=== PATIENT | male | born 1940 | race Caucasian/White ===

== ENCOUNTER 2016-10-29 07:57 | Emergency (ER) | payer OTHER ==
[~2016-10-29] VITALS: Ht 165.1 cm; Wt 55.0 kg
[~2016-10-29 07:57] MED LIST: ADVIN25/60 INH; ALBUAER19 INH; AMLO-110 PO; CRG125 PO; FERR-24 PO; ISOS30TA35 PO; LORA-741 PO; LSN40 PO; LSX40 PO; LVQ500 PO; MTR500 PO; OXGN; PLV75 PO; POTA20TA16 PO; SALI0.657 NAE
[2016-10-29 08:02] VITALS: Ht 165.1 cm; Wt 55.0 kg
--- NOTE | 2016-10-29 08:17 | EMERGENCY ROOM VISIT NOTE ---
History Report prepared by Nevin: Oni Garrison Under the Supervision of: Dr. Iglesia Dickson M.D. First contact with patient: 08:12 Chief Complaint: UNABLE TO VOID Stated Complaint: UNABLE TO URINATE Nursing Triage Summary: PT PRESENTS TO ROOM B07 WITH COMPLAINT OF BEING UNABLE TO URINATE SINCE YESTERDAY. PT WAS INCONTINENT OF SMALL AMOUNT OF URINE EN ROUTE TO HOSPITAL. History of Present Illness The patient is a 76 year old male who presents to the Emergency Room with complaints of a persistent inability to urinate that started yesterday. He says he felt like he had to void but he could not. The patient's urologist is Dr. Ellis and his next appointment is in a few days. Dr. Ellis prescribed the patient a new "blue pill" but he does not know what the name of the pill is. The patient denies any pain at all, including abdominal pain, pelvic pain, pain with urination, new chest pain, or back pain. He also denies fevers, chills, sweating, new shortness of breath, or numbness or weakness to his legs. He was catheterized here prior to examination and the patient now says that he feels better. He has been catheterized before. The patient has a history of prostate problems. He has COPD. The patient notes that he is feeling depressed, but says he is not going to hurt himself. Source of History: patient, family Onset: Yesterday Position: other (bladder - inability to urinate) Timing: other (persistent) Associated Symptoms: + urinary symptoms (felt like he had to void), No SOB, No abdominal pain, No back pain, No chest pain, No chills, No diaphoresis, No fevers, No numbness (to legs), No weakness (in legs) Note: Associated symptoms: Denies pelvic pain. Review of Systems See HPI for pertinent positives & negatives. A total of 10 systems reviewed and were otherwise negative. 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 Nurse's notes were reviewed and I agree with. Family History Heart disease Hypertension Lung disease Social History Smoking Status: Current Every Day Smoker Alcohol Use: none Drug Use: none Marital Status: single Housing Status: unknown Occupation Status: retired Current/Historical Medications Scheduled Amlodipine (Norvasc), 5 MG PO QAM Atorvastatin (Lipitor), 80 MG PO HS Carvedilol (Carvedilol), 12.5 MG PO BID Clopidogrel Bisulfate (Clopidogrel), 75 MG PO QAM Coenzyme Q10 (Ubidecarenone) (Co Q10), 2 CAP PO QAM Docusate Sodium (Colace), 1 CAP PO QAM Ferrous Sulfate (Fe Tabs), 325 MG PO BIDM Finasteride (Proscar), 5 MG PO QAM Fluticasone Prop/Salmeterol (Advair Diskus 250/50 60 Dose), 1 PUFF INH Q12H Furosemide (Furosemide), 40 MG PO QAM Gabapentin (Gabapentin), 100 MG PO TID Isosorbide Mononitrate Ext Rel (Imdur Ext Rel), 1 TAB PO QAM Levofloxacin (Levofloxacin), 500 MG PO DAILY@11 Lisinopril (Lisinopril), 40 MG PO QAM Magnesium Oxide (Mag-Ox), 400 MG PO QAM Metronidazole (Metronidazole), 500 MG PO BID Omeprazole (Prilosec), 40 MG PO BID Potassium Ext Rel (Klor-Con), 40 MEQ PO QAM Tamsulosin HCl (Tamsulosin HCl), 2 CAP PO QAM Tiotropium [place] (Spiriva Handihaler), 1 CAP INH DAILY Scheduled PRN Acetaminophen (Tylenol), 650 MG PO Q4H PRN for Pain or Fever Albuterol Inhaler (Ventolin Inhaler), 2 PUFFS INH QID PRN for SOB/Wheezing Fluticasone Propionate (Nasal) (Flonase Allergy Relief), 2 SPRAYS DARREN DAILY PRN for PRN Ipratropium-Albuterol (Duoneb), 1 TREATMENT INH Q4H PRN for SOB/Wheezing Lorazepam (Ativan), 0.5 MG PO TID PRN for Anxiety Nitroglycerin (Nitrostat), 0.4 MG SL UD PRN for Chest Pain Oxygen (Oxygen), 2 LITERS NA HS PRN for PRN Prednisone (Prednisone), 5 MG PO UD PRN for EMERGENCY KIT Saline ([place]), 1 SPRY DARREN Q8 PRN for PRN Allergies Coded Allergies: No Known Allergies (Verified , 02/10/16) Physical Exam Vital Signs Date Time Temp Pulse Resp B/P Pulse Ox O2 Delivery O2 Flow Rate FiO2 10/29/16 15:04 36.5 66 18 109/56 94 10/29/16 15:03 66 18 109/56 94 Room Air 10/29/16 14:10 67 18 105/56 97 Room Air 10/29/16 12:20 62 18 92/53 95 Room Air 10/29/16 11:06 66 18 110/54 98 Room Air 10/29/16 09:31 66 18 132/71 98 Nasal Cannula 2.0 10/29/16 08:36 95 Nasal Cannula 2.0 10/29/16 08:02 36.5 73 18 137/67 94 Room Air Physical Exam General: Well developed well nourished non-ill appearing older male in no acute distress, breathing comfortably on room air. Normal speech HEENT: Normal cephalic atraumatic. Pupils are equal round and reactive to light. Extraocular movements are intact. Oropharynx is pink with moist mucous membranes. No swelling of the mouth lips or tongue. Neck: Supple with a midline trachea. No meningeal signs or stiffness, no JVD or bruits. No Stridor. Chest: Clear to auscultation bilaterally. No wheezes or rhonchi. No increased work of breathing. Heart: regular rate and rhythm. Abdomen: Soft non-tender abdomen, reproducible ventral hernia centrally. Mass on left inguinal groin which is not tender, red, or warm, and states is unchanged. Nondistended without rebound guarding or rigidity. Extremities: No cyanosis clubbing or edema. No calf tenderness . Amputation of left lower extremity Spine/Back. Non tender to palpation. No CVA tenderness Skin: Good turgor without rashes. Neurologic exam: Cranial nerves two through 12 are intact. Motor and sensation are intact and symmetrical throughout. Medical Decision & Procedures Laboratory Results 10/29/16 08:50 Red Blood Count 3.86, Mean Corpuscular Volume 93.5, Mean Corpuscular Hemoglobin 30.6, Mean Corpuscular Hemoglobin Concent 32.7, Mean Platelet Volume 9.8, Neutrophils (%) (Auto) 69.3, Lymphocytes (%) (Auto) 15.7, Monocytes (%) (Auto) 10.8, Eosinophils (%) (Auto) 3.5, Basophils (%) (Auto) 0.5, Neutrophils # (Auto ) 5.81, Lymphocytes # (Auto) 1.32, Monocytes # (Auto) 0.91, Eosinophils # (Auto ) 0.29, Basophils # (Auto) 0.04 10/29/16 08:50 Test 10/29/16 08:10 10/29/16 08:50 Urine Color YELLOW Urine Appearance CLEAR (CLEAR) Urine pH 6.5 (4.5-7.5) Urine Specific [place] 1.006 (1.000-1.030) Urine Protein NEG (NEG) Urine Glucose (UA) NEG (NEG) Urine Ketones NEG (NEG) Urine Occult Blood TRACE (NEG) Urine Nitrite NEG (NEG) Urine Bilirubin NEG (NEG) Urine Urobilinogen NEG (NEG) Urine Leukocyte Esterase NEG (NEG) Urine WBC (Auto) 0 /hpf (0-5) Urine RBC (Auto) 0-4 /hpf (0-4) Urine Hyaline Casts (Auto) 1-5 /lpf (0-5) Urine Epithelial Cells (Auto) 0-5 /lpf (0-5) Urine Bacteria (Auto) NEG (NEG) White Blood Count 8.39 K/uL (4.8-10.8) Red Blood Count 3.86 M/uL (4.7-6.1) Hemoglobin 11.8 g/dL (14.0-18.0) Hematocrit 36.1 % (42-52) Mean Corpuscular Volume 93.5 fL (80-100) Mean Corpuscular Hemoglobin 30.6 pg (25-34) Mean Corpuscular Hemoglobin Concent 32.7 g/dl (32-36) Platelet Count 198 K/uL (130-400) Mean Platelet Volume 9.8 fL (7.4-10.4) Neutrophils (%) (Auto) 69.3 % Lymphocytes (%) (Auto) 15.7 % Monocytes (%) (Auto) 10.8 % Eosinophils (%) (Auto) 3.5 % Basophils (%) (Auto) 0.5 % Neutrophils # (Auto) 5.81 K/uL (1.4-6.5) Lymphocytes # (Auto) 1.32 K/uL (1.2-3.4) Monocytes # (Auto) 0.91 K/uL (0.11-0.59) Eosinophils # (Auto) 0.29 K/uL (0-0.5) Basophils # (Auto) 0.04 K/uL (0-0.2) RDW Standard Deviation 51.1 fL (36.4-46.3) RDW Coefficient of Variation 15.0 % (11.5-14.5) Immature Granulocyte % (Auto) 0.2 % Immature Granulocyte # (Auto) 0.02 K/uL (0.00-0.02) Prothrombin Time 11.5 SECONDS (9.0-12.0) Prothromb Time International Ratio 1.1 (0.9-1.1) Activated Partial Thromboplast Time 26.4 SECONDS (21.0-31.0) Partial Thromboplastin Ratio 1.0 Anion Gap 7.0 mmol/L (3-11) Est Creatinine Clear Calc Drug Dose 66.2 ml/min Estimated GFR () 104.0 Estimated GFR (Non- 89.7 BUN/Creatinine Ratio 15.7 (10-20) Calcium Level 8.5 mg/dl (8.5-10.1) Date/Time Source Procedure Growth Status 10/29/16 08:00 Urine,Catheterized Urine Culture - Final NO GROWTH - LESS THAN 1,000 COLONIES/ML Complete Laboratory studies as stated above per my review. Medications Administered Medications (Trade) Dose Ordered Sig/Linda Route Start Time Stop Time Status Last Admin Dose Admin Ciprofloxacin (Cipro Tab) 500 mg NOW STAT PO 10/29/16 14:22 10/29/16 14:23 DC 10/29/16 14:52 500 MG ED Course 0831: Past medical records reviewed. The patient was evaluated in room B7, and a complete history and physical examination were performed. 0901: I reevaluated the patient and he is sleeping with stable vital signs. 1417: Upon reevaluation, the patient is resting comfortably. I discussed the results and treatment plan with him and his family. They verbalized agreement of the treatment plan. The patient was discharged home. 1422: Ordered Cipro Tab 500 mg PO. Medical Decision Differential diagnoses include: urinary retention, UTI, electrolyte or metabolic abnormality. This patient comes in with urinary retention. A Cuellar catheter was placed and urine was obtained. He has no neurologic deficits. He has nothing to suggest infection or cauda equina syndrome. He no electrolyte or metabolic abnormalities. A leg bag was placed to his observed in the ER. I will cover him with antibiotics and have him follow-up with his doctor in the next couple days for catheter removal. He was encouraged to return to ER if he has any problems with the catheter, fever chills, any new problems or concerns. I discussed the care with the patient as well as the son they were happy the plan and he was discharged home. Impression Primary Impression: Urinary retention Scribe Attestation The scribe's documentation has been prepared under my direction and personally reviewed by me in its entirety. I confirm that the note above accurately reflects all work, treatment, procedures, and medical decision making performed by me. Departure Information Dispostion Home / Self-Care Referrals Andrew Hinton MD (PCP) Forms HOME CARE DOCUMENTATION FORM, IMPORTANT VISIT INFORMATION, WORK / SCHOOL INSTRUCTIONS Patient Instructions My [facility] Additional Instructions Rest. Drink lineal fluids. Use Cipro 250 mg twice a day for 5 days Return if: Problems with catheter, fever chills, worsening symptoms, any new problems or concerns Follow-up with your urologist call on Tuesday and get catheter removed either Tuesdayor Tuesday.
[2016-10-29 08:30] LABS: URINE APPEARANCE CLEAR (CLEAR); URINE BILIRUBIN NEG (NEG); URINE COLOR YELLOW; URINE EPITHELIAL CELL AUTO 0-5 /lpf (0-5); URINE NITRITE NEG (NEG); URINE PH 6.5 (4.5-7.5); URINE SPECIFIC GRAVITY 1.006 (1.000-1.030); UROBILINOGEN NEG (NEG); ZZURINE CULT IF INDIC CATH NO
[2016-10-29 08:35] LABS: MANUAL MICROSCOPIC REQUIRED? NO; REVIEW REQ? NO
[2016-10-29 08:36] VITALS: O2SAT 95
[2016-10-29 09:04] LABS: BASO % 0.5 %; BASO ABS # 0.04 K/uL (0-0.2); COMPLETE YES; EOS % 3.5 %; HEMATOCRIT 36.1 % (42-52); IG% 0.2 %; LYMPH % 15.7 %; LYMPH ABS # 1.32 K/uL (1.2-3.4); MEAN CELL VOLUME 93.5 fL (80-100); MEAN CORPUSCULAR HEMOGLOBIN 30.6 pg (25-34); MEAN CORPUSCULAR HGB CONC 32.7 g/dl (32-36); MEAN PLATELET VOLUME 9.8 fL (7.4-10.4); MONO % 10.8 %; NEUT % 69.3 %; PLATELET COUNT 198 K/uL (130-400); RED BLOOD COUNT 3.86 M/uL (4.7-6.1); WHITE BLOOD COUNT 8.39 K/uL (4.8-10.8)
[2016-10-29 09:19] LABS: INR 1.1 (0.9-1.1); PROTHROMBIN TIME (PATIENT) 11.5 SECONDS (9.0-12.0)
[2016-10-29 09:40] LABS: BUN/CREATININE RATIO 15.7 (10-20); CALCIUM 8.5 mg/dl (8.5-10.1); CREATININE 0.75 mg/dl (0.60-1.40)
[2016-10-29] MEDS ORDERED: CIPROFLOXACIN 500 MG TAB PO STA (14:22)
[2016-10-29] MEDS ORDERED: CIPR250T3 PO (14:22)
[2016-10-29 15:04] VITALS: BP 109/56; PULSE 66; TEMP 36.5; O2SAT 94
[2017-06-10] MEDS ORDERED: ATOR-26 PO (06:14)
[2017-06-10] MEDS ORDERED: FRS/40 PO (06:57)
[2017-06-10] MEDS ORDERED: SALI0.6510 NAE (07:03)
[2017-06-10] MEDS ORDERED: METO25TA3 PO (07:04)
[2017-06-10] MEDS ORDERED: PRED-301 PO (09:54)
[2017-06-10] MEDS ORDERED: COEN1CAP28 PO (09:54)
[2017-06-10] MEDS ORDERED: DOCU-94 PO (09:54)
[2017-06-10] MEDS ORDERED: IPRASOL4 NEB (09:54)
[2017-06-10] MEDS ORDERED: FLUT0.15 NAE (09:54)
[2017-06-10] MEDS ORDERED: ACET-1311 PO (16:11)
[2017-06-10] MEDS ORDERED: NRN100 PO (16:49)
[2017-06-10] MEDS ORDERED: OMEP40CA41 PO (16:49)
[2017-06-10] MEDS ORDERED: FINA5TAB4 PO (16:49)
[2017-06-10] MEDS ORDERED: SPRIN/30 INH (16:49)
[2017-06-10] MEDS ORDERED: FLM4 PO (16:49)
[2017-06-17] MEDS ORDERED: NYSS5 PO (11:06)
[2017-06-17] MEDS ORDERED: GFNSR600 PO (11:24)
[2017-06-17] MEDS ORDERED: ULT50X PO (14:40)
[2017-06-17] MEDS ORDERED: PRED20TA2 PO (14:44)
== END 2016-10-29 15:05 | disposition home or self-care (01) ==
LOC: EDBD 07:57 → C.EDB 07:58
DX: R33.9 Retention of urine, unspecified (principal); N40.1 Benign prostatic hyperplasia with lower urinary tract symptoms; J44.9 Chronic obstructive pulmonary disease, unspecified; E78.5 Hyperlipidemia, unspecified; I25.10 Atherosclerotic heart disease of native coronary artery without angina pectoris; I10 Essential (primary) hypertension; Z89.612 Acquired absence of left leg above knee; F17.200 Nicotine dependence, unspecified, uncomplicated; Z82.49 Family history of ischemic heart disease and other diseases of the circulatory system

== ENCOUNTER 2016-10-30 15:11 | Emergency (ER) | payer OTHER ==
[~2016-10-30] VITALS: Ht 165.1 cm; Wt 50.0 kg
[~2016-10-30 15:11] MED LIST changes: +CIPR250T3 PO
[2016-10-30 15:22] VITALS: BP 98/61; PULSE 82; TEMP 36.5; O2SAT 90; Ht 165.1 cm; Wt 50.0 kg
--- NOTE | 2016-10-30 15:45 | EMERGENCY ROOM VISIT NOTE ---
History First contact with patient: 15:28 Chief Complaint: CATHETER REPLACEMENT Stated Complaint: WANTS CATHETER OUT, KEEPS WETTING HIMSELF History of Present Illness The patient is a 76 year old male who presents to the Emergency Room requesting a Cuellar catheter removal. The patient was in our emergency department yesterday for urinary retention, and had a Cuellar catheter placed. The patient reports that it started to leak overnight. He has had to change this close 3 times today because of the leakage, and is requesting that it be completely removed. He has an appointment next Tuesday with Dr. Ellis. He was provided a prescription for ciprofloxacin yesterday that he continues to take. 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 (13) Peripheral vascular disease (14) Pulmonary edema (15) Respiratory failure, [id number] (16) Severe sepsis Surgical Problems: (1) Status post coronary artery stent placement Family History Heart disease Hypertension Lung disease Social History Smoking Status: Current Every Day Smoker Alcohol Use: none Drug Use: none Marital Status: single Housing Status: unknown Occupation Status: retired Current/Historical Medications Scheduled Amlodipine (Norvasc), 5 MG PO QAM Atorvastatin (Lipitor), 80 MG PO HS Carvedilol (Carvedilol), 12.5 MG PO BID Ciprofloxacin (Cipro), 1 TAB PO BID Clopidogrel Bisulfate (Clopidogrel), 75 MG PO QAM Coenzyme Q10 (Ubidecarenone) (Co Q10), 2 CAP PO QAM Docusate Sodium (Colace), 1 CAP PO QAM Ferrous Sulfate (Fe Tabs), 325 MG PO BIDM Finasteride (Proscar), 5 MG PO QAM Fluticasone Prop/Salmeterol (Advair Diskus 250/50 60 Dose), 1 PUFF INH Q12H Furosemide (Furosemide), 40 MG PO QAM Gabapentin (Gabapentin), 100 MG PO TID Isosorbide Mononitrate Ext Rel (Imdur Ext Rel), 1 TAB PO QAM Levofloxacin (Levofloxacin), 500 MG PO DAILY@11 Lisinopril (Lisinopril), 40 MG PO QAM Magnesium Oxide (Mag-Ox), 400 MG PO QAM Metronidazole (Metronidazole), 500 MG PO BID Omeprazole (Prilosec), 40 MG PO BID Potassium Ext Rel (Klor-Con), 40 MEQ PO QAM Tamsulosin HCl (Tamsulosin HCl), 2 CAP PO QAM Tiotropium [place] (Spiriva Handihaler), 1 CAP INH DAILY Scheduled PRN Acetaminophen (Tylenol), 650 MG PO Q4H PRN for Pain or Fever Albuterol Inhaler (Ventolin Inhaler), 2 PUFFS INH QID PRN for SOB/Wheezing Fluticasone Propionate (Nasal) (Flonase Allergy Relief), 2 SPRAYS DARREN DAILY PRN for PRN Ipratropium-Albuterol (Duoneb), 1 TREATMENT INH Q4H PRN for SOB/Wheezing Lorazepam (Ativan), 0.5 MG PO TID PRN for Anxiety Nitroglycerin (Nitrostat), 0.4 MG SL UD PRN for Chest Pain Oxygen (Oxygen), 2 LITERS NA HS PRN for PRN Prednisone (Prednisone), 5 MG PO UD PRN for EMERGENCY KIT Saline ([place]), 1 SPRY DARREN Q8 PRN for PRN Allergies Coded Allergies: No Known Allergies (Verified , 02/10/16) Physical Exam Vital Signs Date Time Temp Pulse Resp B/P Pulse Ox O2 Delivery O2 Flow Rate FiO2 10/30/16 15:22 36.5 82 18 98/61 90 Room Air Physical Exam CONSTITUTIONAL: Healthy and well nourished. Alert and oriented X 3 with flat affect. HEENT: Normocephalic, atraumatic. Pupils equal, round and reactive. No conjunctival injection/pallor or scleral icterus. NECK: Full active range of motion without discomfort. RESPIRATORY: Clear to auscultation bilaterally with no wheezing, crackles, rhonchi or stridor. CARDIOVASCULAR: Regular rate and rhythm with no murmurs, rubs or gallops. GASTROINTESTINAL: Bowel sounds present in all quadrants. Abdomen is soft and nontender to palpation. Negative CVA tenderness. GENITOURINARY: Examination does not show any referral bleeding around the Cuellar catheter tube. MUSCULOSKELETAL: Full range of motion of all joints without discomfort. INTEGUMENTARY: No rash or other significant dermatologic conditions noted. NEUROLOGIC: No focal neurologic deficits noted. Medical Decision & Procedures ED Course Patient history and physical exam were performed. Nurse's notes were reviewed. I explained to the patient that the Cuellar catheter balloon may not be seated against the base of the bladder, causing it to leak. I did offer to try repositioning the catheter, however the patient refused, stating that he just wanted the catheter to be completely gone. I did explain that he could redevelop urinary retention. The patient reports that he would come back to the emergency department if needed. The Cuellar catheter was removed. There was no bloody discharge, and the patient denied any significant discomfort while doing so. He was instructed to continue and finish his previous Cipro antibiotics, and follow-up with Dr. Ellis for further management. Return to the emergency department for any reoccurring urinary retention. The patient was happy to have the Cuellar removed, and denied any discomfort at the time of discharge. Impression Primary Impression: Complication of catheter Departure Information Dispostion Home / Self-Care Referrals Andrew Hinton MD (PCP) Forms HOME CARE DOCUMENTATION FORM, IMPORTANT VISIT INFORMATION Patient Instructions My [facility] Additional Instructions Return to the emergency department for any recurrent urinary retention. Follow-up with Dr. Ellis for further management. Complete all antibiotics as previously prescribed. Problem Qualifiers Primary Impression: Complication of catheter Encounter type: subsequent encounter Qualified Codes: T85.9XXD - Unspecified complication of internal prosthetic device, implant and graft, subsequent encounter
[2017-06-10] MEDS ORDERED: ATOR-26 PO (06:14)
[2017-06-10] MEDS ORDERED: FRS/40 PO (06:57)
[2017-06-10] MEDS ORDERED: SALI0.6510 NAE (07:03)
[2017-06-10] MEDS ORDERED: METO25TA3 PO (07:04)
[2017-06-10] MEDS ORDERED: IPRASOL4 NEB (09:54)
[2017-06-10] MEDS ORDERED: DOCU-94 PO (09:54)
[2017-06-10] MEDS ORDERED: COEN1CAP28 PO (09:54)
[2017-06-10] MEDS ORDERED: PRED-301 PO (09:54)
[2017-06-10] MEDS ORDERED: FLUT0.15 NAE (09:54)
[2017-06-10] MEDS ORDERED: ACET-1311 PO (16:11)
[2017-06-10] MEDS ORDERED: FLM4 PO (16:49)
[2017-06-10] MEDS ORDERED: NRN100 PO (16:49)
[2017-06-10] MEDS ORDERED: OMEP40CA41 PO (16:49)
[2017-06-10] MEDS ORDERED: FINA5TAB4 PO (16:49)
[2017-06-10] MEDS ORDERED: SPRIN/30 INH (16:49)
[2017-06-17] MEDS ORDERED: NYSS5 PO (11:06)
[2017-06-17] MEDS ORDERED: GFNSR600 PO (11:24)
[2017-06-17] MEDS ORDERED: ULT50X PO (14:40)
[2017-06-17] MEDS ORDERED: PRED20TA2 PO (14:44)
== END 2016-10-30 15:42 | disposition home or self-care (01) ==
LOC: C.EDB 15:12 → C.EDD 15:42
DX: T83.038A Leakage of other urinary catheter, initial encounter (principal); Y84.6 Urinary catheterization as the cause of abnormal reaction of the patient, or of later complication, without mention of misadventure at the time of the procedure; D64.9 Anemia, unspecified; N40.0 Benign prostatic hyperplasia without lower urinary tract symptoms; J44.9 Chronic obstructive pulmonary disease, unspecified; I25.10 Atherosclerotic heart disease of native coronary artery without angina pectoris; E78.5 Hyperlipidemia, unspecified; I10 Essential (primary) hypertension; I73.9 Peripheral vascular disease, unspecified; J81.1 Chronic pulmonary edema; J96.90 Respiratory failure, unspecified, unspecified whether with hypoxia or hypercapnia; F17.210 Nicotine dependence, cigarettes, uncomplicated; Z79.899 Other long term (current) drug therapy

== ENCOUNTER 2017-02-05 08:34 | Emergency (ER) | payer OTHER ==
[~2017-02-05] VITALS: Ht 162.6 cm; Wt 46.1 kg
[~2017-02-05 08:34] MED LIST changes: -CIPR250T3 PO
[2017-02-05 08:40] VITALS: TEMP 36.7; Ht 162.6 cm; Wt 46.1 kg
[2017-02-05 09:12] LABS: URINE APPEARANCE CLEAR (CLEAR); URINE BILIRUBIN NEG (NEG); URINE COLOR YELLOW; URINE EPITHELIAL CELL AUTO 0-5 /lpf (0-5); URINE NITRITE NEG (NEG); URINE SPECIFIC GRAVITY 1.009 (1.000-1.030); UROBILINOGEN NEG (NEG); ZZURINE CULT IF INDIC CATH NO
[2017-02-05 09:13] LABS: MANUAL MICROSCOPIC REQUIRED? NO; REVIEW REQ? NO
[2017-02-05] MEDS ORDERED: CIPROFLOXACIN 500 MG TAB PO STA (09:37)
[2017-02-05 10:03] VITALS: BP 94/52; PULSE 66; O2SAT 100
--- NOTE | 2017-02-05 13:30 | EMERGENCY ROOM VISIT NOTE ---
History Report prepared by Nevin: Damion Bardales Under the Supervision of: Dr. Fahad Joiner D.O. First contact with patient: 08:35 Stated Complaint: UNABLE TO VOID History of Present Illness The patient is a 76 year old male who presents to the Emergency Room with complaints of constant inability to void since he woke up at 0630 this morning. The patient feels the urge to go but no urine passes. He was last able to urinate last night before going to sleep. The same thing happened to him several months ago requiring a Cuellar catheter. He was not experiencing any pain or burning with urination yesterday. He has an enlarged prostate and follows up with Dr. Ellis (Urology). He states that he has been eating and drinking okay lately. The patient notes that he has a mass in the left lower abdomen that he occasionally has drained, for which he follows up with Dr. Baldwin. The collection has been present for several months. The patient wears oxygen at night and as needed. Patient denies headache, change in vision, cough, sore throat, rhinorrhea, fevers, chest pain, shortness of breath, nausea, vomiting, and diarrhea. Source of History: patient Onset: prior to waking up at 0630 this morning Position: other (urinary) Quality: other (unable to void) Timing: constant Associated Symptoms: No SOB, No chest pain, No cough, No diarrhea, No fevers , No headache, No melena, No nausea, No sorethroat, No urinary symptoms, No vomiting Review of Systems See HPI for pertinent positives & negatives. A total of 10 systems reviewed and were otherwise negative. 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 (13) Peripheral vascular disease (14) Pulmonary edema (15) Respiratory failure, [id number] (16) Severe sepsis Surgical Problems: (1) Status post coronary artery stent placement Family History Heart disease Hypertension Lung disease Social History Smoking Status: Current Every Day Smoker Alcohol Use: none Drug Use: none Marital Status: single Housing Status: unknown Occupation Status: retired Current/Historical Medications Scheduled Amlodipine (Norvasc), 5 MG PO QAM Atorvastatin (Lipitor), 80 MG PO HS Carvedilol (Carvedilol), 12.5 MG PO BID Clopidogrel Bisulfate (Clopidogrel), 75 MG PO QAM Coenzyme Q10 (Ubidecarenone) (Co Q10), 2 CAP PO QAM Docusate Sodium (Colace), 1 CAP PO QAM Ferrous Sulfate (Fe Tabs), 325 MG PO QPM Finasteride (Proscar), 5 MG PO QAM Fluticasone Prop/Salmeterol (Advair Diskus 250/50 60 Dose), 1 PUFF INH Q12H Furosemide (Furosemide), 40 MG PO QAM Gabapentin (Gabapentin), 100 MG PO TID Isosorbide Mononitrate Ext Rel (Imdur Ext Rel), 1 TAB PO QAM Lisinopril (Lisinopril), 40 MG PO QAM Lorazepam (Ativan), 0.5 MG PO QAM Magnesium Oxide (Mag-Ox), 400 MG PO QAM Omeprazole (Prilosec), 40 MG PO BID Potassium Ext Rel (Klor-Con), 40 MEQ PO QAM Tamsulosin HCl (Tamsulosin HCl), 2 CAP PO QAM Tiotropium [place] (Spiriva Handihaler), 1 CAP INH DAILY Scheduled PRN Acetaminophen (Tylenol), 650 MG PO Q4H PRN for Pain or Fever Albuterol Inhaler (Ventolin Inhaler), 2 PUFFS INH QID PRN for SOB/Wheezing Fluticasone Propionate (Nasal) (Flonase Allergy Relief), 2 SPRAYS DARREN DAILY PRN for PRN Ipratropium-Albuterol (Duoneb), 1 TREATMENT INH Q4H PRN for SOB/Wheezing Nitroglycerin (Nitrostat), 0.4 MG SL UD PRN for Chest Pain Oxygen (Oxygen), 2 LITERS NA HS PRN for PRN Prednisone (Prednisone), 5 MG PO UD PRN for EMERGENCY KIT Saline ([place]), 1 SPRY DARREN Q8 PRN for PRN Allergies Coded Allergies: No Known Allergies (Verified , 02/05/17) Physical Exam Vital Signs Date Time Temp Pulse Resp B/P Pulse Ox O2 Delivery O2 Flow Rate FiO2 02/05/17 10:03 66 20 94/52 100 02/05/17 09:51 66 20 94/52 100 Room Air 02/05/17 08:40 36.7 72 20 93/51 99 Room Air Physical Exam GENERAL: Sitting up in bed, alert, well appearing, well nourished, no distress, non-toxic, on nasal cannula oxygen. EYE EXAM: normal conjunctiva. OROPHARYNX: no exudate, no erythema, lips, buccal mucosa, and tongue normal and mucous membranes are moist NECK: supple, no nuchal rigidity, no adenopathy, non-tender LUNGS: Clear to auscultation. Normal chest wall mechanics HEART: no murmurs, S1 normal and S2 normal ABDOMEN: abdomen soft, non-tender, normo-active bowel sounds, fluctuant mass in the left lower quadrant, mild fullness in the suprapubic region, no rebound or guarding. SKIN: no rashes and no bruising UPPER EXTREMITIES: upper extremities are grossly normal. LOWER EXTREMITIES: No pitting edema. NEURO EXAM: Normal sensorium Medical Decision & Procedures Laboratory Results Test 02/05/17 09:00 Urine Color YELLOW Urine Appearance CLEAR (CLEAR) Urine pH 7.0 (4.5-7.5) Urine Specific [place] 1.009 (1.000-1.030) Urine Protein NEG (NEG) Urine Glucose (UA) NEG (NEG) Urine Ketones NEG (NEG) Urine Occult Blood NEG (NEG) Urine Nitrite NEG (NEG) Urine Bilirubin NEG (NEG) Urine Urobilinogen NEG (NEG) Urine Leukocyte Esterase NEG (NEG) Urine WBC (Auto) 0 /hpf (0-5) Urine RBC (Auto) 0-4 /hpf (0-4) Urine Hyaline Casts (Auto) 1-5 /lpf (0-5) Urine Epithelial Cells (Auto) 0-5 /lpf (0-5) Urine Bacteria (Auto) NEG (NEG) Laboratory results per my review. Medications Administered Medications (Trade) Dose Ordered Sig/Linda Route Start Time Stop Time Status Last Admin Dose Admin Ciprofloxacin (Cipro Tab) 500 mg NOW STAT PO 02/05/17 09:37 02/05/17 09:38 DC 02/05/17 09:50 500 MG ED Course ED COURSE: Vital signs were reviewed and showed hypotension. The patients medical record was reviewed The above diagnostic studies were performed and reviewed. ED treatments and interventions as stated above. 0837: The patient was evaluated in room A12b. A complete history and physical examination was performed. 0840: Bedside ultrasound performed, showing a large distended bladder. Left lower quadrant mass appears to be an uncomplicated fluid collection on ultrasound. 0845: Past records show that he was here on December 27 and had a Cuellar catheter placed. He came back on the for Cuellar complications. 0914: Dr. Baldwin's note reviewed. He believed that the mass is not infectious. 0937: Cipro 500 mg PO. 0940: Upon reevaluation, the patient is feeling significant better..I discussed my findings with the patient and he understands and agrees with the treatment plan. Based on the patients age, coexisting illnesses, exam and lab findings the decision to treat as an outpatient was made. The patient remained stable while under my care. The patient appeared well at the time of discharge. Medical Decision Differential diagnoses includes but is not limited to gastritis, peptic ulcer disease, GERD, gallbladder disease, pancreatitis, small bowel obstruction, acute coronary syndrome, pericarditis, ischemic bowel, irritable bowel disease, irritable bowel syndrome, appendicitis, diverticulitis, malignancy, hernia, urinary tract infection, torsion, , perforation, trauma, infectious. Patient was a 76-year-old male who presents the ER with urinary retention. His been unable to void since he woke up this morning and has felt the continuous pressure. Bedside ultrasound shows an enlarged and dilated bladder. Denies any burning, or frequency. He admits to a history of enlarged prostate. He also notes that the mass in his left lower quadrant is chronic and has been evaluated by 3 surgeons. Upon my review of Dr. Baldwin's chart does appear to be a serious mass which is been drained and grew out no bacteria. Cuellar was placed and had overflow with a 16 Persian consequently an 18 Persian was placed and completely drained his bladder. UA was clean. Patient was discharged with Cuellar to follow-up with Dr. Ellis from urology in 2-3 days. Discussed with Pt concerning signs and symptoms to watch out for. Pt was instructed to follow up with their PCP and discussed with the patient their option to return to the ED at anytime for persistent or worsening symptoms. The appropriate anticipatory guidance and out-patient management, including indications for return to the emergency department, were explained at length to the patient and understood. Impression Primary Impression: Urinary retention Scribe Attestation The scribe's documentation has been prepared under my direction and personally reviewed by me in its entirety. I confirm that the note above accurately reflects all work, treatment, procedures, and medical decision making performed by me. Departure Information Dispostion Home / Self-Care Referrals Andrew Hinton MD (PCP) Forms HOME CARE DOCUMENTATION FORM, IMPORTANT VISIT INFORMATION, WORK / SCHOOL INSTRUCTIONS Patient Instructions ED Retention Urinary Male, [facility] Additional Instructions Please follow up with your primary care doctor with in the next 24 hours. Any worsening of your symptoms, please return to the ED immediately. This includes fevers greater than 100.4, overflow of urine around the Cuellar, new pain, passing out, or any other concerning signs or symptoms from your standpoint. Please follow up with urology within the next 48 hours. You should contact them today to set up an appointment as they deem fit.
[2017-06-10] MEDS ORDERED: ATOR-26 PO (06:14)
[2017-06-10] MEDS ORDERED: FRS/40 PO (06:57)
[2017-06-10] MEDS ORDERED: SALI0.6510 NAE (07:03)
[2017-06-10] MEDS ORDERED: METO25TA3 PO (07:04)
[2017-06-10] MEDS ORDERED: COEN1CAP28 PO (09:54)
[2017-06-10] MEDS ORDERED: PRED-301 PO (09:54)
[2017-06-10] MEDS ORDERED: FLUT0.15 NAE (09:54)
[2017-06-10] MEDS ORDERED: DOCU-94 PO (09:54)
[2017-06-10] MEDS ORDERED: IPRASOL4 NEB (09:54)
[2017-06-10] MEDS ORDERED: ACET-1311 PO (16:11)
[2017-06-10] MEDS ORDERED: NRN100 PO (16:49)
[2017-06-10] MEDS ORDERED: OMEP40CA41 PO (16:49)
[2017-06-10] MEDS ORDERED: FLM4 PO (16:49)
[2017-06-10] MEDS ORDERED: FINA5TAB4 PO (16:49)
[2017-06-10] MEDS ORDERED: SPRIN/30 INH (16:49)
[2017-06-17] MEDS ORDERED: NYSS5 PO (11:06)
[2017-06-17] MEDS ORDERED: GFNSR600 PO (11:24)
[2017-06-17] MEDS ORDERED: ULT50X PO (14:40)
[2017-06-17] MEDS ORDERED: PRED20TA2 PO (14:44)
== END 2017-02-05 10:05 | disposition home or self-care (01) ==
LOC: EDBD 08:34 → C.EDA 08:35
DX: R33.9 Retention of urine, unspecified (principal); D64.9 Anemia, unspecified; N40.0 Benign prostatic hyperplasia without lower urinary tract symptoms; J44.9 Chronic obstructive pulmonary disease, unspecified; I25.10 Atherosclerotic heart disease of native coronary artery without angina pectoris; E78.5 Hyperlipidemia, unspecified; I10 Essential (primary) hypertension; Z82.49 Family history of ischemic heart disease and other diseases of the circulatory system; F17.200 Nicotine dependence, unspecified, uncomplicated

== ENCOUNTER 2017-06-04 06:11 | Emergency (ER) | payer OTHER ==
[~2017-06-04 06:11] MED LIST changes: -LVQ500 PO; -MTR500 PO
[2017-06-04 06:18] VITALS: TEMP 36.5
[2017-06-04] MEDS ORDERED: VNTHFA/IN INH (07:02)
--- NOTE | 2017-06-04 08:18 | DIAGNOSTIC IMAGING REPORT ---
ART DOP DUPLEX LW EXT UNI CLINICAL HISTORY: L groin firm pulsing mass mass TECHNIQUE: Arterial Doppler. Real-time ultrasound. COMPARISON STUDY: 10/21/2014 FINDINGS: The left internal iliac artery as well as common femoral arteries are patent. There is a patent graft in position. There is again a complex collection in the left groin extending to the lateral aspect of the upper thigh lateral to the left hip. This suggestive of hematoma. Maximum dimensions of 12.5 cm. This is somewhat increased in prominence of the prior study. IMPRESSION: 1. 12.5 cm complex collection left groin and lateral to the left hip 2. This is suggestive of a hematoma. 3. Max in dimension is somewhat increased from the prior study. 4. All major arterial vascular structures are intact. The above report was generated using voice recognition software. It may contain grammatical, syntax or spelling errors. Electronically signed by: Pramod Carpio M.D. 06/04/2017 8:16 AM Dictated Date/Time: 06/04/2017 8:13 AM
--- NOTE | 2017-06-04 08:58 | EMERGENCY ROOM VISIT NOTE ---
ED Visit Note First contact with patient: 07:07 77-year-old male with left groin pain since early this morning was fully evaluated by Emmanuel Simmons PA-C. Please see his note. I also independently evaluated the patient. Ultrasound was obtained revealing a hematoma. Dr. Baldwin was called but felt the patient should be seen at [facility] where he was seen in the past for this problem. They accept the patient in transfer. The patient and his son refused ambulance transport despite explanation of the reason for that precaution.
[2017-06-04] MEDS ORDERED: MoRPHine SULFATE 2 MG/ML CARP IV STA (09:22)
[2017-06-04 09:24] LABS: BASO % 0.3 %; BASO ABS # 0.03 K/uL (0-0.2); COMPLETE YES; EOS % 0.9 %; HEMATOCRIT 30.8 % (42-52); IG% 0.7 %; LYMPH % 7.3 %; LYMPH ABS # 0.73 K/uL (1.2-3.4); MEAN CELL VOLUME 93.1 fL (80-100); MEAN CORPUSCULAR HGB CONC 31.2 g/dl (32-36); MEAN PLATELET VOLUME 9.8 fL (7.4-10.4); MONO % 7.9 %; NEUT % 82.9 %; PLATELET COUNT 216 K/uL (130-400); RED BLOOD COUNT 3.31 M/uL (4.7-6.1); WHITE BLOOD COUNT 10.06 K/uL (4.8-10.8)
[2017-06-04 09:29] VITALS: O2SAT 96
[2017-06-04 09:39] LABS: BLOOD UREA NITROGEN 12 mg/dl (7-18); CALCIUM 8.6 mg/dl (8.5-10.1); CARBON DIOXIDE 32 mmol/L (21-32); CHLORIDE 103 mmol/L (98-107); GLUCOSE 109 mg/dl (70-99); POTASSIUM 3.8 mmol/L (3.5-5.1); SODIUM 138 mmol/L (136-145)
[2017-06-04 09:52] LABS: BUN/CREATININE RATIO 30.8 (10-20); CREATININE 0.39 mg/dl (0.60-1.40)
--- NOTE | 2017-06-04 15:03 | EMERGENCY ROOM VISIT NOTE ---
History First contact with patient: 07:07 Chief Complaint: GROIN PAIN Stated Complaint: GROIN PAIN History of Present Illness The patient is a 77 year old white male who presents to the Emergency Room with complaints of left groin pain, swelling, and firmness that developed overnight last night. Patient previously had a seroma drainage and excision with a flap placement approximately 11 weeks ago at [facility] in [place]. He states everything went fine postoperatively. He states there was no swelling or pain in his groin yesterday prior to going to bed. Denies any known trauma to the area. He arrives by ambulance. He has a history of left AKA and states he was unable to wear his leg prosthesis secondary to leg swelling for the last 2 years. He does have a history of distant femoral vessel graft placement prior to his previous seroma drainage and excision. Review of Systems REVIEW OF SYSTEM: HEENT: No dizziness, visual problems, hearing loss, or tinnitus. There is no difficulty swallowing and no oral lesions are present. LYMPH: No adenopathy. PULMONARY: Chronic cough, shortness of breath, and sputum production. CARDIOVASCULAR: No chest pain, palpitations, shortness of breath or peripheral edema. GASTROINTESTINAL: No diarrhea, constipation, nausea, vomiting, or abdominal pain. GENITOURINARY: No dysuria, frequency, urgency or nocturia. NEUROLOGIC: No muscle tenderness, epilepsy or history of neurological problems. No history of chronic headaches. MUSCULOSKELETAL: No history of joint tenderness/swelling. Positive history of arthritis and arthralgias. SKIN: No rashes or lesions. Healing surgical scar left groin. PSYCHIATRIC: No history of depression or mental illness. ENDOCRINE: No history of diabetes, thyroid disorders, or abnormal hair growth. 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 (13) Peripheral vascular disease (14) Pulmonary edema (15) Respiratory failure, [id number] (16) Severe sepsis Surgical Problems: (1) Status post coronary artery stent placement Family History Heart disease Hypertension Lung disease Social History Smoking Status: Never Smoker Smokeless Tobacco Use: No Alcohol Use: none Drug Use: none Marital Status: single Housing Status: unknown Occupation Status: retired Current/Historical Medications Scheduled Albuterol Hfa (Ventolin Hfa), 2 PUFFS INH QID Atorvastatin (Lipitor), 80 MG PO HS Clopidogrel Bisulfate (Clopidogrel), 75 MG PO QAM Coenzyme Q10 (Ubidecarenone) (Co Q10), 2 CAP PO QAM Docusate Sodium (Colace), 100 MG PO BID Ferrous Sulfate (Fe Tabs), 325 MG PO QPM Finasteride (Proscar), 5 MG PO QAM Fluticasone Prop/Salmeterol (Advair Diskus 250/50 60 Dose), 1 PUFF INH Q12H Fluticasone Propionate (Nasal) (Flonase Allergy Relief), 2 SPRAYS DARREN DAILY Furosemide (Lasix), 40 MG PO DAILY Gabapentin (Gabapentin), 100 MG PO Q8 Home O2 Therapy (Oxygen), 2 LITERS NA HS Magnesium Oxide (Mag-Ox), 400 MG PO QAM Metoprolol Succ (Toprol Xl) (Toprol-Xl), 12.5 MG PO Q12 Omeprazole (Prilosec), 40 MG PO DAILY Potassium Ext Rel (Klor-Con), 20 MEQ PO DAILY Tamsulosin HCl (Tamsulosin HCl), 2 CAP PO QAM Tiotropium [place] (Spiriva Handihaler), 1 CAP INH DAILY Scheduled PRN Acetaminophen (Tylenol), 650 MG PO Q6 PRN for Pain Ipratropium-Albuterol (Duoneb), 1 TREATMENT NEB Q6 PRN for SOB/Wheezing Nitroglycerin (Nitrostat), 0.4 MG SL UD PRN for Chest Pain Prednisone (Prednisone), 5 MG PO UD PRN for EMERGENCY KIT Saline ([place] Nasal [place]), 2 SPRY DARREN UD PRN for nasal congestion or dryness Physical Exam Vital Signs Date Time Temp Pulse Resp B/P (MAP) Pulse Ox O2 Delivery O2 Flow Rate FiO2 06/04/17 14:30 129/68 06/04/17 14:25 84 23 06/04/17 14:00 126/66 06/04/17 13:55 82 06/04/17 13:43 88 06/04/17 13:30 134/73 06/04/17 13:25 86 20 06/04/17 13:00 120/79 06/04/17 12:55 72 18 95 06/04/17 12:50 67 18 94 06/04/17 12:35 82 16 95 06/04/17 12:30 127/62 06/04/17 12:20 82 20 99 06/04/17 12:05 79 24 98 06/04/17 12:04 70 20 118/72 98 Nasal Cannula 2.0 06/04/17 12:00 118/72 06/04/17 11:50 79 24 98 06/04/17 11:35 71 18 98 06/04/17 11:30 130/68 06/04/17 11:20 77 17 99 06/04/17 11:05 87 28 06/04/17 11:00 125/65 06/04/17 10:41 77 19 96 06/04/17 10:30 125/67 06/04/17 10:11 73 13 97 06/04/17 10:07 120/66 06/04/17 10:07 68 17 120/68 94 Nasal Cannula 2.0 06/04/17 10:00 124/60 06/04/17 09:41 80 17 91 06/04/17 09:32 79 06/04/17 09:30 126/60 06/04/17 09:29 96 Nasal Cannula 2.0 06/04/17 09:14 77 18 108/72 96 Nasal Cannula 2.0 06/04/17 07:40 87 18 124/62 95 Nasal Cannula 2.0 06/04/17 06:18 36.5 89 18 125/65 95 Room Air 06/04/17 06:18 Nasal Cannula 2.0 Pain Rating (0-10): 1.0 Physical Exam Gen.: Frail, elderly white male, in no acute distress. Laying on a bed. Alert and oriented. Sleeping numerous times when I enter the room. Skin:Warm and dry with good turgor. No rashes or lesions. No ecchymosis or erythema. The patient is not diaphoretic. No abrasions. Heart: Heart RRR. No MGR. Peripheral pulses are 2+. Distant heart sounds. Lungs: Lungs are clear to auscultation. Frequent wet cough. No crackles rhonchi or wheezing. Fair air movement. Abdomen: Abdomen was inspected, auscultated, and palpated. Bowel sounds present x 4. Soft, nontender to palpation. No hepato-splenomegaly. No masses noted. No rebound. Ventral hernia noted. Musculoskeletal: Patient has an above-knee amputation on the left leg. He has a firm, tender, or nonmobile mass present in the left groin, at the area of his previous surgical incision. It does feel pulsatile. No ecchymosis. Neurologic: Gross sensation is intact around the mass. Medical Decision & Procedures ER Provider Diagnostic Interpretation: Diagnostic ultrasound obtained today of the groin shows a 12.5 cm complex fluid collection consistent with hematoma. This was read by radiology. Laboratory Results 06/04/17 09:09 Red Blood Count 3.31, Mean Corpuscular Volume 93.1, Mean Corpuscular Hemoglobin 29.0, Mean Corpuscular Hemoglobin Concent 31.2, Mean Platelet Volume 9.8, Neutrophils (%) (Auto) 82.9, Lymphocytes (%) (Auto) 7.3, Monocytes (%) (Auto) 7.9, Eosinophils (%) (Auto) 0.9, Basophils (%) (Auto) 0.3, Neutrophils # (Auto) 8.35, Lymphocytes # (Auto) 0.73, Monocytes # (Auto) 0.79, Eosinophils # (Auto) 0.09, Basophils # (Auto) 0.03 06/04/17 09:09 Test 06/04/17 09:09 White Blood Count 10.06 K/uL (4.8-10.8) Red Blood Count 3.31 M/uL (4.7-6.1) Hemoglobin 9.6 g/dL (14.0-18.0) Hematocrit 30.8 % (42-52) Mean Corpuscular Volume 93.1 fL (80-100) Mean Corpuscular Hemoglobin 29.0 pg (25-34) Mean Corpuscular Hemoglobin Concent 31.2 g/dl (32-36) Platelet Count 216 K/uL (130-400) Mean Platelet Volume 9.8 fL (7.4-10.4) Neutrophils (%) (Auto) 82.9 % Lymphocytes (%) (Auto) 7.3 % Monocytes (%) (Auto) 7.9 % Eosinophils (%) (Auto) 0.9 % Basophils (%) (Auto) 0.3 % Neutrophils # (Auto) 8.35 K/uL (1.4-6.5) Lymphocytes # (Auto) 0.73 K/uL (1.2-3.4) Monocytes # (Auto) 0.79 K/uL (0.11-0.59) Eosinophils # (Auto) 0.09 K/uL (0-0.5) Basophils # (Auto) 0.03 K/uL (0-0.2) RDW Standard Deviation 50.5 fL (36.4-46.3) RDW Coefficient of Variation 14.7 % (11.5-14.5) Immature Granulocyte % (Auto) 0.7 % Immature Granulocyte # (Auto) 0.07 K/uL (0.00-0.02) Anion Gap 3.0 mmol/L (3-11) Estimated GFR () 135.1 Estimated GFR (Non- 116.6 BUN/Creatinine Ratio 30.8 (10-20) Calcium Level 8.6 mg/dl (8.5-10.1) CBC and PRP were obtained. Mild anemia. It is consistent with his previous labs from from board. Medications Administered Medications (Trade) Dose Ordered Sig/Linda Route Start Time Stop Time Status Last Admin Dose Admin Morphine Sulfate (MoRPHine SULFATE INJ) 2 mg NOW STAT IV 06/04/17 09:22 06/04/17 09:23 DC 06/04/17 09:32 2 MG Morphine 2 mg IV ED Course Patient was educated regarding today's findings. Conservative care measures were discussed. IV was established. Labs were obtained. Ultrasound of the left or right was obtained and read by radiology. I did speak with Dr. Rainey from general surgery. She recommended follow-up with vascular surgery. I did speak with Dr. Baldwin from vascular surgery. He recommended contacting the surgical service at the original hospital and have them evaluate the patient, as he was unavailable. I did speak with cardiovascular services at [facility]. I spoke with Winifred, the PA for Dr. Dale. They would like to evaluate the patient today. They do have a bed available for direct admit. I did attempt to make arrangements for ambulance transfer. Patient stated he did not have any money to pay for an ambulance and would have his son take him directly there after picking up an oxygen tank. I did spend considerable time discussing with the patient the risks and benefits of private vehicle transport. He is adamant that he does not want to go by ambulance. I did speak with his son regarding this. He is agreeable to taking his father to [place] from here. He is aware of the risks. Medical Decision Possibility of graft rupture, pseudoaneurysm, muscle tear, flap tear, infection , vascular injury, and abdominal herniation were considered. Medication Reconcilliation Current Medication List: was personally reviewed by me Blood Pressure Screening Patient's blood pressure: Normal blood pressure Impression Primary Impression: Hip hematoma, left Departure Information Referrals Andrew Hinton MD (PCP) Patient Instructions My [facility] Problem Qualifiers Primary Impression: Hip hematoma, left Encounter type: initial encounter Qualified Codes: S70.02XA - Contusion of left hip, initial encounter
[2017-06-04 15:20] VITALS: BP 128/70; PULSE 78; O2SAT 94
[2017-06-10] MEDS ORDERED: ATOR-26 PO (06:14)
[2017-06-10] MEDS ORDERED: FRS/40 PO (06:57)
[2017-06-10] MEDS ORDERED: SALI0.6510 NAE (07:03)
[2017-06-10] MEDS ORDERED: METO25TA3 PO (07:04)
[2017-06-10] MEDS ORDERED: PRED-301 PO (09:54)
[2017-06-10] MEDS ORDERED: IPRASOL4 NEB (09:54)
[2017-06-10] MEDS ORDERED: COEN1CAP28 PO (09:54)
[2017-06-10] MEDS ORDERED: DOCU-94 PO (09:54)
[2017-06-10] MEDS ORDERED: FLUT0.15 NAE (09:54)
[2017-06-10] MEDS ORDERED: ACET-1311 PO (16:11)
[2017-06-10] MEDS ORDERED: SPRIN/30 INH (16:49)
[2017-06-10] MEDS ORDERED: OMEP40CA41 PO (16:49)
[2017-06-10] MEDS ORDERED: FLM4 PO (16:49)
[2017-06-10] MEDS ORDERED: FINA5TAB4 PO (16:49)
[2017-06-10] MEDS ORDERED: NRN100 PO (16:49)
[2017-06-17] MEDS ORDERED: NYSS5 PO (11:06)
[2017-06-17] MEDS ORDERED: GFNSR600 PO (11:24)
[2017-06-17] MEDS ORDERED: ULT50X PO (14:40)
[2017-06-17] MEDS ORDERED: PRED20TA2 PO (14:44)
== END 2017-06-04 15:15 | disposition short-term general hospital (02) ==
LOC: EDBD 06:11 → C.EDB 06:13
DX: S70.02XA Contusion of left hip, initial encounter (principal); X58.XXXA Exposure to other specified factors, initial encounter; Z89.612 Acquired absence of left leg above knee; D64.9 Anemia, unspecified; N40.0 Benign prostatic hyperplasia without lower urinary tract symptoms; J44.9 Chronic obstructive pulmonary disease, unspecified; I25.10 Atherosclerotic heart disease of native coronary artery without angina pectoris; E78.5 Hyperlipidemia, unspecified; I10 Essential (primary) hypertension; I73.9 Peripheral vascular disease, unspecified; J96.10 Chronic respiratory failure, unspecified whether with hypoxia or hypercapnia; Z82.49 Family history of ischemic heart disease and other diseases of the circulatory system; Z83.6 Family history of other diseases of the respiratory system; Z79.899 Other long term (current) drug therapy

== ENCOUNTER 2017-06-10 17:58 | Emergency (ER) | payer OTHER ==
[~2017-06-10] VITALS: Ht 165.1 cm; Wt 46.4 kg
[~2017-06-10 17:58] MED LIST changes: +ACET-1311 PO; -ALBUAER19 INH; -AMLO-110 PO; +ATOR-26 PO; +COEN1CAP28 PO; -CRG125 PO; +DOCU-94 PO; +FINA5TAB4 PO; +FLM4 PO; +FLUT0.15 NAE; +FRS/40 PO; +IPRASOL4 NEB; -ISOS30TA35 PO; -LORA-741 PO; -LSN40 PO; -LSX40 PO; +METO25TA3 PO; +NRN100 PO; +OMEP40CA41 PO; +PRED-301 PO; +SALI0.6510 NAE; -SALI0.657 NAE; +SPRIN/30 INH; +VNTHFA/IN INH
[2017-06-10 18:08] VITALS: Ht 165.1 cm; Wt 46.4 kg
--- NOTE | 2017-06-10 18:36 | EMERGENCY ROOM VISIT NOTE ---
History Report prepared by Nevin: Emilee Castro Under the Supervision of: Avtar MillardO. First contact with patient: 18:13 Chief Complaint: OTHER COMPLAINT Stated Complaint: WEAKNESS, HYPOXIA History of Present Illness The patient is a 77 year old male who presents to the Emergency Room with complaints of weakness today. Per his family, the patient was discharged from another hospital earlier today. He has a graft and a stent that is deteriorating, and had surgery to replace lymphatic fluid build-up. The patient has circulation through collaterals. The patient reports that he felt fine leaving the hospital today, but progressively became hypoxic on the way home because his oxygen machine was not working properly. He states that his right side began to feel weak and then his left side also became weak and that he felt as if he was going to pass out when he got home. States he thinks his right side felt weak first because that's his dominant side and the side he was using to get out of the car. The patient also reports having changes in vision. He states that he normally wears 2 liters of nasal cannula daily. The patient was recently stopped on Plavix. The patient is still a smoker. Pt denies headache, fevers, chest pain, nausea, vomiting, diarrhea, pain with urination, and melena. Source of History: patient, family Onset: today Position: other (global) Quality: other (weakness) Associated Symptoms: + SOB, No fevers, No headache, No chest pain, No nausea , No vomiting, No melena, No urinary symptoms Note: additional symptom: changes in vision, hypoxia Review of Systems See HPI for pertinent positives & negatives. A total of 10 systems reviewed and were otherwise negative. 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 (13) Peripheral vascular disease (14) Pulmonary edema (15) Respiratory failure, [id number] (16) Severe sepsis Surgical Problems: (1) Status post coronary artery stent placement Family History Heart disease Hypertension Lung disease Social History Smoking Status: Current Every Day Smoker Alcohol Use: none Drug Use: none Marital Status: single Housing Status: unknown Occupation Status: retired Current/Historical Medications Scheduled Amiodarone HCl (Amiodarone HCl), 400 MG PO DAILY Aspirin (Aspirin Chewable), 81 MG PO DAILY Atorvastatin (Lipitor), 80 MG PO HS Coenzyme Q10 (Ubidecarenone) (Co Q10), 2 CAP PO QAM Docusate Sodium (Colace), 100 MG PO DAILY Ferrous Sulfate (Fe Tabs), 325 MG PO QA Finasteride (Proscar), 5 MG PO QAM Fluticasone Prop/Salmeterol (Advair Diskus 250/50 60 Dose), 1 PUFF INH Q12H Furosemide (Lasix), 40 MG PO DAILY Gabapentin (Gabapentin), 100 MG PO Q8 Home O2 Therapy (Oxygen), 2 LITERS NA PRN Magnesium Oxide (Mag-Ox), 400 MG PO QAM Metoprolol Succ (Toprol Xl) (Toprol-Xl), 12.5 MG PO BID Omeprazole (Prilosec), 40 MG PO DAILY Potassium Ext Rel (Klor-Con), 20 MEQ PO DAILY Spironolactone (Spironolactone), 25 MG PO DAILY Tamsulosin HCl (Tamsulosin HCl), 1 CAP PO BID Tiotropium [place] (Spiriva Handihaler), 1 CAP INH DAILY Scheduled PRN Acetaminophen (Tylenol), 650 MG PO Q6 PRN for Pain Albuterol Hfa (Ventolin Hfa), 2 PUFFS INH Q6 PRN for Wheezing Fluticasone Propionate (Nasal) (Flonase Allergy Relief), 2 SPRAYS DARREN DAILY PRN for Nasal Congestion Ipratropium-Albuterol (Duoneb), 1 TREATMENT NEB Q6 PRN for SOB/Wheezing Nitroglycerin (Nitrostat), 0.4 MG SL UD PRN for Chest Pain Prednisone (Prednisone), 5 MG PO UD PRN for EMERGENCY KIT Saline ([place] Nasal [place]), 2 SPRY DARREN UD PRN for nasal congestion or dryness Allergies Coded Allergies: No Known Allergies (Verified , 06/04/17) Physical Exam Vital Signs Date Time Temp Pulse Resp B/P (MAP) Pulse Ox O2 Delivery O2 Flow Rate FiO2 06/10/17 20:31 91 20 117/61 95 06/10/17 18:17 95 Nasal Cannula 4.0 06/10/17 18:08 94 20 115/59 88 Room Air Physical Exam GENERAL: alert, cachectic, no distress, non-toxic, O2 in place EYE EXAM: normal conjunctiva, PERRL and EOM's grossly intact OROPHARYNX: no exudate, no erythema, lips, buccal mucosa, and tongue normal and mucous membranes are moist NECK: supple, no nuchal rigidity, no adenopathy, non-tender LUNGS: Diminished breath sounds. Bilateral expiratory wheezes. Normal chest wall mechanics HEART: no murmurs, S1 normal and S2 normal ABDOMEN: abdomen soft, non-tender, normo-active bowel sounds, no masses, no rebound or guarding. BACK: Back is symmetrical on inspection and there is no deformity, no midline tenderness, no CVA tenderness. SKIN: no rashes and no bruising UPPER EXTREMITIES: upper extremities are grossly normal. LOWER EXTREMITIES: Dressing over the left inguinal fold consistent with recent procedure. Left AKA stump that is well appearing. Right lower extremity is atrophied, has scars from prior vein harvesting. Has pulses but they are diminished. Sensation intact. NEURO EXAM: Normal sensorium, cranial nerves II-XII intact, normal speech, no weakness of arms, no weakness of legs. No drift. Finger to nose intact. Gross sensation intact. Medical Decision & Procedures ER Provider Diagnostic Interpretation: Radiology results have been interpreted by the radiologist and reviewed by me. CHEST ONE VIEW PORTABLE CLINICAL HISTORY: 77 years-old Male presenting with hypoxia. TECHNIQUE: Portable upright AP view of the chest was obtained. COMPARISON: 01/23/2016. FINDINGS: Atherosclerosis of aortic arch. Mildly enlarged cardiac silhouette. Prominent ulnar vasculature similar to prior exam. Interval increase in bibasilar opacities on a background of coarsened lung markings. Relative radiolucency in the upper lobes could suggest emphysema. Interval increase in bilateral pleural effusions. No pneumothorax. Osteopenia may be present. IMPRESSION: 1. Interval development of bibasilar opacities and bilateral pleural effusions. This most likely represents pulmonary edema, though infection or aspiration cannot be excluded. 2. Cardiac megaly. 3. Chronic lung disease most suggestive of underlying emphysema. Electronically signed by: Puma Pisano M.D. 06/10/2017 7:11 PM Dictated Date/Time: 06/10/2017 7:08 PM HEAD WITHOUT CONTRAST (CT) CLINICAL HISTORY: 77 years-old Male presenting with weakness, near syncope. TECHNIQUE: Multidetector CT imaging of the head was performed without the use of intravenous contrast. IV contrast: None. A dose lowering technique was used consistent with the principles of ALARA (as low as reasonably achievable). COMPARISON: 10/19/2014. CT DOSE (mGy.cm): The estimated cumulative dose is 1829.88 mGy.cm. 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 Proportional ventricular and sulcal prominence, likely age-related parenchymal volume loss. Brain parenchyma normal in appearance with preserved tan-white differentiation. No mass effect or midline shift. No hemorrhage or acute territorial infarct. No extra-axial fluid collection. Fluid noted in the hypoplastic left mastoid air cells. Calvarium intact. IMPRESSION: 1. No acute intracranial pathology. Electronically signed by: Puma Pisano M.D. 06/10/2017 7:54 PM Dictated Date/Time: 06/10/2017 7:51 PM Medications Administered Medications (Trade) Dose Ordered Sig/Linda Route Start Time Stop Time Status Last Admin Dose Admin Albuterol/ Ipratropium (Duoneb) 3 ml NOW STAT INH 06/10/17 18:45 06/10/17 18:47 DC 06/10/17 19:19 3 ML ECG Indication: weakness Rate (beats per minute): 90 Rhythm: sinus rhythm Findings: LBBB, other (normal axis) Change: no significant change ED Course 0: The patient was evaluated in room B10. A complete history and physical exam was performed. 0: I had an extensive discussion with son in [facility] regarding patient's chronic morbidities and high risk factors. 1844: Ordered Duoneb 3 ml INH. 1999: I updated the patient and he would like to go home. I re-explained how high of a risk he is, and he would still like to go home. He states that he knows he has chronic fluid in the lungs. 2014: Upon reevaluation, the patient is still requesting to leave. Offered admission for observation, labs, additional testing and he decline. Family verbalized understanding of risks of patient's conditions, high risk of decompensation. Medical Decision Differential diagnosis: Etiologies such as metabolic, infection, hypo/hyperglycemia, electrolyte abnormalities, cardiac sources, intracerebral event, toxicologic, neurologic, as well as others were entertained. current condition. Pt high risk of multiple pathologies and mortality. Discussed all this with him at bedside. Offered admission and he declined. Pt aware of risk of and additional permanent disability. Pt declined any additional testing at this time. Family aware of risk. Medication Reconcilliation Current Medication List: was personally reviewed by me Blood Pressure Screening Patient's blood pressure: Normal blood pressure Impression Primary Impression: Hypoxia Additional Impressions: Generalized weakness Near syncope Oxygen dependent Tobacco abuse Scribe Attestation The scribe's documentation has been prepared under my direction and personally reviewed by me in its entirety. I confirm that the note above accurately reflects all work, treatment, procedures, and medical decision making performed by me. Departure Information Dispostion Home / Self-Care Referrals Andrew Hinton MD (PCP) Forms HOME CARE DOCUMENTATION FORM, IMPORTANT VISIT INFORMATION, WORK / SCHOOL INSTRUCTIONS Patient Instructions My [facility] Additional Instructions Please continue regular medications and breathing treatments at home. Please wear oxygen at all times. Please continue the follow-up recommended by your vascular surgeon. Please follow up with your lung specialist. If you have any recurrent episodes similar today, or develop other new and concerning symptoms, please call 911 and return to the emergency room immediately. You have several chronic comorbidities that put you at an increased risk for several life threatening conditions including heart attack and stroke. By going home you are assuming responsibility for your conditions. You are welcome to return to the ER at any time. Problem Qualifiers
[2017-06-10] MEDS ORDERED: ALBUT/IPRATROP 3MG/0.5MG NEB 3 ML VIAL INH STA (18:45)
--- NOTE | 2017-06-10 19:13 | DIAGNOSTIC IMAGING REPORT ---
CHEST ONE VIEW PORTABLE CLINICAL HISTORY: 77 years-old Male presenting with hypoxia. TECHNIQUE: Portable upright AP view of the chest was obtained. COMPARISON: 01/23/2016. FINDINGS: Atherosclerosis of aortic arch. Mildly enlarged cardiac silhouette. Prominent ulnar vasculature similar to prior exam. Interval increase in bibasilar opacities on a background of coarsened lung markings. Relative radiolucency in the upper lobes could suggest emphysema. Interval increase in bilateral pleural effusions. No pneumothorax. Osteopenia may be present. IMPRESSION: 1. Interval development of bibasilar opacities and bilateral pleural effusions. This most likely represents pulmonary edema, though infection or aspiration cannot be excluded. 2. Cardiac megaly. 3. Chronic lung disease most suggestive of underlying emphysema. Electronically signed by: Puma Pisano M.D. 06/10/2017 7:11 PM Dictated Date/Time: 06/10/2017 7:08 PM
[2017-06-10] MEDS ORDERED: CRD200 PO (19:23)
[2017-06-10] MEDS ORDERED: ASPCH81X PO (19:23)
[2017-06-10] MEDS ORDERED: SPR25 PO (19:23)
--- NOTE | 2017-06-10 19:55 | DIAGNOSTIC IMAGING REPORT ---
HEAD WITHOUT CONTRAST (CT) CLINICAL HISTORY: 77 years-old Male presenting with weakness, near syncope. TECHNIQUE: Multidetector CT imaging of the head was performed without the use of intravenous contrast. IV contrast: None. A dose lowering technique was used consistent with the principles of ALARA (as low as reasonably achievable). COMPARISON: 10/19/2014. CT DOSE (mGy.cm): The estimated cumulative dose is 1829.88 mGy.cm. 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 Proportional ventricular and sulcal prominence, likely age-related parenchymal volume loss. Brain parenchyma normal in appearance with preserved tan-white differentiation. No mass effect or midline shift. No hemorrhage or acute territorial infarct. No extra-axial fluid collection. Fluid noted in the hypoplastic left mastoid air cells. Calvarium intact. IMPRESSION: 1. No acute intracranial pathology. Electronically signed by: Puma Pisano M.D. 06/10/2017 7:54 PM Dictated Date/Time: 06/10/2017 7:51 PM
[2017-06-10 20:31] VITALS: BP 117/61; PULSE 91; O2SAT 95
[2017-06-10] MEDS ORDERED: MAGN400T6 PO (21:32)
[2017-06-10] MEDS ORDERED: NTRGSLP4 SL (21:33)
[2017-06-11] MEDS ORDERED: OXGN (09:31)
[2017-06-17] MEDS ORDERED: NYSS5 PO (11:06)
[2017-06-17] MEDS ORDERED: GFNSR600 PO (11:24)
[2017-06-17] MEDS ORDERED: ULT50X PO (14:40)
[2017-06-17] MEDS ORDERED: PRED20TA2 PO (14:44)
== END 2017-06-10 20:32 | disposition home or self-care (01) ==
LOC: EDBD 17:58 → C.EDB 17:59
DX: R09.02 Hypoxemia (principal); R55 Syncope and collapse; Z99.81 Dependence on supplemental oxygen; F17.210 Nicotine dependence, cigarettes, uncomplicated; Z98.890 Other specified postprocedural states; Z89.612 Acquired absence of left leg above knee; D64.9 Anemia, unspecified; N40.0 Benign prostatic hyperplasia without lower urinary tract symptoms; J44.9 Chronic obstructive pulmonary disease, unspecified; I25.10 Atherosclerotic heart disease of native coronary artery without angina pectoris; E78.5 Hyperlipidemia, unspecified; I10 Essential (primary) hypertension; I73.9 Peripheral vascular disease, unspecified; Z95.5 Presence of coronary angioplasty implant and graft; Z82.49 Family history of ischemic heart disease and other diseases of the circulatory system; Z79.82 Long term (current) use of aspirin; Z79.899 Other long term (current) drug therapy

== ENCOUNTER 2017-06-11 09:13 | Inpatient (IN) | payer OTHER ==
[2017-06-11] VITALS (7 sets, daily range): BP systolic 107–113; BP diastolic 52–61; PULSE 76–86; TEMP 36.4–36.8; O2SAT 94–99; Ht 162.6 cm; Wt 43.2 kg
[~2017-06-11] VITALS: Ht 162.6 cm; Wt 43.2 kg
[~2017-06-11 09:13] MED LIST changes: +ASPCH81X PO; +CRD200 PO; +MAGN400T6 PO; +NTRGSLP4 SL; -OXGN; -PLV75 PO; +SPR25 PO
[2017-06-11] MEDS ORDERED: ALBUT/IPRATROP 3MG/0.5MG NEB 3 ML VIAL INH STA (09:29)
[2017-06-11] MEDS ORDERED: METHYLPREDNISOLONE 125 MG VIAL IV STA (09:29)
[2017-06-11] MEDS ORDERED: OXGN (09:31)
[2017-06-11 09:59] LABS: BASO % 0.1 %; BASO ABS # 0.01 K/uL (0-0.2); EOS % 0.1 %; HEMATOCRIT 27.9 % (42-52); IG% 0.5 %; LYMPH % 6.3 %; LYMPH ABS # 0.86 K/uL (1.2-3.4); MEAN CELL VOLUME 94.3 fL (80-100); MEAN CORPUSCULAR HEMOGLOBIN 28.7 pg (25-34); MEAN CORPUSCULAR HGB CONC 30.5 g/dl (32-36); MEAN PLATELET VOLUME 9.5 fL (7.4-10.4); MONO % 4.1 %; NEUT % 88.9 %; PLATELET COUNT 312 K/uL (130-400); RED BLOOD COUNT 2.96 M/uL (4.7-6.1); WHITE BLOOD COUNT 13.62 K/uL (4.8-10.8)
[2017-06-11 10:00] LABS: URINE APPEARANCE CLEAR (CLEAR); URINE BILIRUBIN NEG (NEG); URINE COLOR YELLOW; URINE EPITHELIAL CELL AUTO 0-5 /lpf (0-5); URINE NITRITE NEG (NEG); URINE SPECIFIC GRAVITY 1.014 (1.000-1.030); UROBILINOGEN NEG (NEG); ZZUR CULT IF INDIC CLEAN CATCH NO
[2017-06-11 10:07] LABS: VEN BLD GAS O2 SATURATION 74.4 %; VEN BLOOD GAS BASE EXCESS 10.4 mEq/L
--- NOTE | 2017-06-11 10:07 | DIAGNOSTIC IMAGING REPORT ---
CHEST ONE VIEW PORTABLE CLINICAL HISTORY: Sepsis COMPARISON STUDY: 06/10/2017 FINDINGS: The heart is enlarged. There is radiographic evidence of congestive failure with interstitial edema. There are bilateral pleural effusions. There are more focal airspace opacities within the left lower lobe. Superimposed pneumonia cannot be excluded.[ IMPRESSION: 1. Radiographic evidence of congestive failure with interstitial edema and bilateral pleural effusions 2. More focal left basal airspace opacities, consistent with either focal edema or a superimposed pneumonia. Electronically signed by: Zane Alex M.D. 06/11/2017 10:05 AM Dictated Date/Time: 06/11/2017 10:04 AM
[2017-06-11 10:09] LABS: INR 1.1 (0.9-1.1); PROTHROMBIN TIME (PATIENT) 11.7 SECONDS (9.0-12.0)
[2017-06-11 10:12] LABS: MANUAL MICROSCOPIC REQUIRED? NO; REVIEW REQ? NO
[2017-06-11 10:16] LABS: BUN/CREATININE RATIO 36.5 (10-20); C-REACTIVE PROTEIN 7.34 mg/dl (0-0.29); CALCIUM 9.1 mg/dl (8.5-10.1); CREATININE 0.63 mg/dl (0.60-1.40); MAGNESIUM 1.9 mg/dl (1.8-2.4); POTASSIUM 3.9 mmol/L (3.5-5.1)
[2017-06-11 10:32] LABS: ALB/GLOB RATIO 0.7 (0.9-2); CKMB/CK RATIO 3.8 (0-3.0)
[2017-06-11 10:36] LABS: COMPLETE YES; OVALOCYTES 1+
[2017-06-11] MEDS ORDERED: LEVAQUIN 750MG / 150ML D5W IV STA (10:48)
--- NOTE | 2017-06-11 10:56 | EMERGENCY ROOM VISIT NOTE ---
History Report prepared by Nevin: Tim Field Under the Supervision of: Dr. Stas Roa D.O. First contact with patient: 09:18 Stated Complaint: SOB/BRONCHI History of Present Illness The patient is a 77 year old male who presents to the Emergency Room by EMS with complaints of persistent shortness of breath beginning yesterday. The patient has a history of COPD for which he is on chronic steroids. He has a cardiac stent in place. He states that he is a former smoker. The patient was seen in the ED yesterday for arm numbness and weakness. He notes that he presented after driving for about two hours yesterday and was not wearing supplemental oxygen as he usually does while he was driving. He is normally on 2 to 2.5 L of oxygen at home. The patient also complains of a productive cough. His symptoms are worsened with exertion. Source of History: patient Onset: Yesterday Quality: other (shortness of breath) Timing: other (persistent) Modifying Factors (Worsening): exertion Associated Symptoms: + cough (productive) Review of Systems See HPI for pertinent positives & negatives. A total of 10 systems reviewed and were otherwise negative. 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 (13) Peripheral vascular disease (14) Pulmonary edema (15) Respiratory failure, [id number] (16) Severe sepsis Surgical Problems: (1) Status post coronary artery stent placement Family History Heart disease Hypertension Lung disease Social History Smoking Status: Current Every Day Smoker Alcohol Use: none Drug Use: none Marital Status: single Housing Status: unknown Occupation Status: retired Current/Historical Medications Scheduled Amiodarone HCl (Amiodarone HCl), 400 MG PO DAILY Aspirin (Aspirin Chewable), 81 MG PO DAILY Atorvastatin (Lipitor), 80 MG PO HS Coenzyme Q10 (Ubidecarenone) (Co Q10), 2 CAP PO QAM Docusate Sodium (Colace), 100 MG PO DAILY Ferrous Sulfate (Fe Tabs), 325 MG PO QA Finasteride (Proscar), 5 MG PO QAM Fluticasone Prop/Salmeterol (Advair Diskus 250/50 60 Dose), 1 PUFF INH Q12H Furosemide (Lasix), 40 MG PO DAILY Gabapentin (Gabapentin), 100 MG PO Q8 Home O2 Therapy (Oxygen), 2 LITERS NA PRN Magnesium Oxide (Mag-Ox), 400 MG PO QAM Metoprolol Succ (Toprol Xl) (Toprol-Xl), 12.5 MG PO BID Omeprazole (Prilosec), 40 MG PO DAILY Potassium Ext Rel (Klor-Con), 20 MEQ PO DAILY Spironolactone (Spironolactone), 25 MG PO DAILY Tamsulosin HCl (Tamsulosin HCl), 1 CAP PO BID Tiotropium [place] (Spiriva Handihaler), 1 CAP INH DAILY Scheduled PRN Acetaminophen (Tylenol), 650 MG PO Q6 PRN for Pain Albuterol Hfa (Ventolin Hfa), 2 PUFFS INH Q6 PRN for Wheezing Fluticasone Propionate (Nasal) (Flonase Allergy Relief), 2 SPRAYS DARREN DAILY PRN for Nasal Congestion Ipratropium-Albuterol (Duoneb), 1 TREATMENT NEB Q6 PRN for SOB/Wheezing Nitroglycerin (Nitrostat), 0.4 MG SL UD PRN for Chest Pain Prednisone (Prednisone), 5 MG PO UD PRN for EMERGENCY KIT Saline ([place] Nasal [place]), 2 SPRY DARREN UD PRN for nasal congestion or dryness Allergies Coded Allergies: No Known Allergies (Verified , 06/04/17) Physical Exam Vital Signs Date Time Temp Pulse Resp B/P (MAP) Pulse Ox O2 Delivery O2 Flow Rate FiO2 06/11/17 10:59 86 20 113/61 94 Nasal Cannula 4.0 06/11/17 10:21 87 24 113/61 92 Nasal Cannula 4.0 06/11/17 10:01 90 22 113/61 94 Nasal Cannula 4.0 06/11/17 09:35 93 Nasal Cannula 4.0 06/11/17 09:35 91 06/11/17 09:27 95 Nasal Cannula 4.0 06/11/17 09:23 95 Nasal Cannula 4.0 06/11/17 09:21 103 25 164/91 95 Nasal Cannula 4.0 06/11/17 09:15 37.0 110 24 164/91 95 Nasal Cannula 4.0 Physical Exam GENERAL: Patient is awake, alert, and in no acute distress. Patient appears very anxious. EYES: The conjunctivae are clear. The pupils are round and reactive. EARS, NOSE, MOUTH AND THROAT: The nose is without any evidence of any deformity. Mucous membranes are moist tongue is midline NECK: The neck is nontender and supple. RESPIRATORY: Diminished in the right lung field. Diffuse rhonchi and expiratory wheezing noted. Significant tachypnea and conversational dyspnea. Intercostal retractions noted. CARDIOVASCULAR: Distant but regular, no definite murmur to auscultation. GASTROINTESTINAL: The abdomen is soft. Bowel sounds are present in all quadrants. Abdomen is nontender MUSCULOSKELETAL/EXTREMITIES: Full range of motion is noted in the hips and shoulders. Left AKA noted. SKIN: There is no obvious evidence of any rash. There are no petechiae, pallor or cyanosis noted. Skin is cool and dry. Pulses in the groin were symmetric. Wound dressing over the left groin. NEUROLOGIC: Patient is awake alert and oriented x3 strength is symmetric patellar reflexes are 2+ bilaterally Medical Decision & Procedures ER Provider Diagnostic Interpretation: X-ray results as stated below per interpretation by me and the radiologist. CHEST ONE VIEW PORTABLE FINDINGS: The heart is enlarged. There is radiographic evidence of congestive failure with interstitial edema. There are bilateral pleural effusions. There are more focal airspace opacities within the left lower lobe. Superimposed pneumonia cannot be excluded.[ IMPRESSION: 1. Radiographic evidence of congestive failure with interstitial edema and bilateral pleural effusions 2. More focal left basal airspace opacities, consistent with either focal edema or a superimposed pneumonia. Electronically signed by: Zane Alex M.D. Laboratory Results 06/11/17 09:44 Red Blood Count 2.96, Mean Corpuscular Volume 94.3, Mean Corpuscular Hemoglobin 28.7, Mean Corpuscular Hemoglobin Concent 30.5, Mean Platelet Volume 9.5, Neutrophils (%) (Auto) 88.9, Lymphocytes (%) (Auto) 6.3, Monocytes (%) (Auto) 4.1, Eosinophils (%) (Auto) 0.1, Basophils (%) (Auto) 0.1, Neutrophils # (Auto) 12.11, Lymphocytes # (Auto) 0.86, Monocytes # (Auto) 0.56, Eosinophils # (Auto) 0.01, Basophils # (Auto) 0.01 06/11/17 09:44 Test 06/11/17 09:31 06/11/17 09:44 06/11/17 09:48 Urine Color YELLOW Urine Appearance CLEAR (CLEAR) Urine pH 6.0 (4.5-7.5) Urine Specific [place] 1.014 (1.000-1.030) Urine Protein NEG (NEG) Urine Glucose (UA) NEG (NEG) Urine Ketones NEG (NEG) Urine Occult Blood NEG (NEG) Urine Nitrite NEG (NEG) Urine Bilirubin NEG (NEG) Urine Urobilinogen NEG (NEG) Urine Leukocyte Esterase NEG (NEG) Urine WBC (Auto) 0 /hpf (0-5) Urine RBC (Auto) 0-4 /hpf (0-4) Urine Hyaline Casts (Auto) 1-5 /lpf (0-5) Urine Epithelial Cells (Auto) 0-5 /lpf (0-5) Urine Bacteria (Auto) NEG (NEG) White Blood Count 13.62 K/uL (4.8-10.8) Red Blood Count 2.96 M/uL (4.7-6.1) Hemoglobin 8.5 g/dL (14.0-18.0) Hematocrit 27.9 % (42-52) Mean Corpuscular Volume 94.3 fL (80-100) Mean Corpuscular Hemoglobin 28.7 pg (25-34) Mean Corpuscular Hemoglobin Concent 30.5 g/dl (32-36) Platelet Count 312 K/uL (130-400) Mean Platelet Volume 9.5 fL (7.4-10.4) Neutrophils (%) (Auto) 88.9 % Lymphocytes (%) (Auto) 6.3 % Monocytes (%) (Auto) 4.1 % Eosinophils (%) (Auto) 0.1 % Basophils (%) (Auto) 0.1 % Neutrophils # (Auto) 12.11 K/uL (1.4-6.5) Lymphocytes # (Auto) 0.86 K/uL (1.2-3.4) Monocytes # (Auto) 0.56 K/uL (0.11-0.59) Eosinophils # (Auto) 0.01 K/uL (0-0.5) Basophils # (Auto) 0.01 K/uL (0-0.2) RDW Standard Deviation 51.7 fL (36.4-46.3) RDW Coefficient of Variation 14.9 % (11.5-14.5) Immature Granulocyte % (Auto) 0.5 % Immature Granulocyte # (Auto) 0.07 K/uL (0.00-0.02) Ovalocytes 1+ Erythrocyte Sedimentation Rate 64 mm/hr (0-14) Prothrombin Time 11.7 SECONDS (9.0-12.0) Prothromb Time International Ratio 1.1 (0.9-1.1) Activated Partial Thromboplast Time 25.1 SECONDS (21.0-31.0) Partial Thromboplastin Ratio 1.0 Venous Blood pH 7.41 (7.36-7.41) Venous Blood Partial Pressure CO2 59 mmHg (38.0-50.0) Venous Blood Partial Pressure O2 43 mmHg Venous Blood HCO3 37 mmol/L Venous Blood Oxygen Saturation 74.4 % Venous Blood Base Excess 10.4 mEq/L Anion Gap 4.0 mmol/L (3-11) Est Creatinine Clear Calc Drug Dose 63.5 ml/min Estimated GFR () 110.9 Estimated GFR (Non- 95.7 BUN/Creatinine Ratio 36.5 (10-20) Calcium Level 9.1 mg/dl (8.5-10.1) Magnesium Level 1.9 mg/dl (1.8-2.4) Total Bilirubin 0.3 mg/dl (0.2-1) Aspartate Amino Transf (AST/SGOT) 25 U/L (15-37) Alanine Aminotransferase (ALT/SGPT) 13 U/L (12-78) Alkaline Phosphatase 75 U/L (45-117) Total Creatine Kinase 74 U/L (39-308) Creatine Kinase MB 2.8 ng/ml (0.5-3.6) Creatine Kinase MB Ratio 3.8 (0-3.0) Troponin I 0.201 ng/ml (0-0.045) C-Reactive Protein 7.34 mg/dl (0-0.29) Pro-B-Type Natriuretic Peptide 11303 pg/ml (0-1800) Total Protein 6.4 gm/dl (6.4-8.2) Albumin 2.6 gm/dl (3.4-5.0) Globulin 3.7 gm/dl (2.5-4.0) Albumin/Globulin Ratio 0.7 (0.9-2) Bedside Lactic Acid Venous 1.27 mmol/L (0.90-1.70) Laboratory results per my review. Medications Administered Medications (Trade) Dose Ordered Sig/Linda Route Start Time Stop Time Status Last Admin Dose Admin Albuterol/ Ipratropium (Duoneb) 3 ml NOW STAT INH 06/11/17 09:29 06/11/17 09:30 DC 06/11/17 09:39 3 ML Methylprednisolone Sodium Succinate (Solu-Medrol IV) 125 mg NOW STAT IV 06/11/17 09:29 06/11/17 09:30 DC 06/11/17 09:57 125 MG Levofloxacin (Levaquin / D5W) 750 mg NOW STAT IV 06/11/17 10:48 06/11/17 10:49 DC 06/11/17 10:57 750 MG ECG Indication: SOB/dyspnea Rate (beats per minute): 102 Rhythm: sinus tachycardia Findings: LBBB, no ectopy Comparison ECG Date: 06/10/2017 Change: no significant change ED Course 0921: The patient was evaluated in room C5. A complete history and physical examination were performed. 0929: Ordered Solu-Medrol 125 mg IV, DuoNeb 3 mL INH. 1048: Ordered Levaquin / D5W 750 mg IV. 1045: Upon reevaluation, the patient is resting comfortably. I discussed results and treatment plan with him. He verbalizes agreement and understanding. I spoke with Dr. Gilbert of the [facility]. The patient will be evaluated for further management and care. Medical Decision Differential diagnosis: Etiologies such as infections, reactive airway disease, pneumonia, pneumothorax , COPD, CHF, cardiac ischemia, pulmonary embolism, musculoskeletal, gastrointestinal, as well as others were entertained. Nursing notes reviewed. Additional history is obtained from the prehospital personnel. The patient's previous electronic medical records reviewed. The patient is a 77-year-old male who presented to the emergency department because of shortness of breath. The patient has a history of COPD. He has peripheral vascular disease as well. He recently had a procedure in his left groin. He had some bleeding in this area. This area appears to be healing well this time. The patient was treated with a DuoNeb prior to arrival. He was seen yesterday in our facility for similar complaints. I reviewed the patient's previous electronic medical records. The patient was treated with a DuoNeb as well as Solu-Medrol in the emergency department. He was found have a possible pneumonia on chest x-ray. The patient was also given Levaquin. I discussed the patient's laboratory and radiographic studies with him. At this time I feel it is possible he may have some underlying ischemia because of the anemia and may also have some degree of pulmonary edema because of this. I discussed the patient's condition with the on-call [facility] hospitalist. They've agreed to evaluate the patient in the emergency department for further management and disposition. Medication Reconcilliation Current Medication List: was personally reviewed by me Blood Pressure Screening Patient's blood pressure: Elevated blood pressure Blood pressure disposition: Referred to PCP Consults Time Called: 1041 Consulting Physician: Dr. Vladimir Reagan Returned Call: [phone] I discussed the patient's case with Dr. Gilbert. The patient will be evaluated for further management. Impression Primary Impression: COPD exacerbation Additional Impressions: Anemia Elevated troponin Scribe Attestation The scribe's documentation has been prepared under my direction and personally reviewed by me in its entirety. I confirm that the note above accurately reflects all work, treatment, procedures, and medical decision making performed by me. Departure Information Dispostion Being Evaluated By Hospitalist Referrals Andrew Hinton MD (PCP) Problem Qualifiers Additional Impressions: Anemia Anemia type: unspecified type Qualified Codes: D64.9 - Anemia, unspecified
[2017-06-11] MEDS ORDERED: FLUTICASONE PROPIONATE NA SPR 16 GM BTL NAE PRN (11:30)
[2017-06-11] MEDS ORDERED: ACETAMINOPHEN 325 MG TAB PO PRN (11:30)
[2017-06-11] MEDS ORDERED: NITROGLYCERIN 0.4 MG SL PER TAB CHARGE SL PRN (11:30)
--- NOTE | 2017-06-11 12:01 | History and Physical ---
History & Physical Date & Time of Service: Jun 11, 2017 at 11:27 Chief Complaint: Sob/Bronchi Primary Care Physician: Andrew Hinton MD History of Present Illness Source: patient, clinic records, hospital records This is a 77 year old male with a complex medical history, including CAD s/p stent in , severe COPD and chronic respiratory failure on 2L O2 continuously , severe ischemic cardiomyopathy with EF of ~ 20%, traumatic L lower leg amputation presents with worsening shortness of breath. States he was recently on [facility] in [place] for a L groin seroma, which was drained and debrided and he was there for almost a week. While there, his medications were adjusted, including the discontinuation of Plavix and the addition of Amiodarone. Patient states he was doing well but when he was on the drive back to the [facility], he became short of breath. He was seen in the ER at [facility] the same day he was discharged from [facility] (on June 10). He was given some neb treatments and steroids and was sent home. He states that this morning he became much more short of breath; requiring accessory muscles for respiratory as per ED doctor. Was given steroids, antibiotics and neb treatment and he already feels better. Denies fevers/chills; denies chest pain, denies nausea/vomiting/diarrhea; c/o weakness, R LE pain, which is chronic and dyspnea with exertion. Past Medical/Surgical History Medical Problems: (1) Amputation of lower limb Status: Chronic (2) Anemia Status: Chronic (3) BPH (benign prostatic hypertrophy) Status: Chronic (4) Chest pain Status: Resolved (5) Chronic respiratory failure Status: Chronic (6) COPD (chronic obstructive pulmonary disease) Status: Chronic (7) COPD exacerbation Status: Resolved (8) Coronary artery disease Status: Chronic (9) Dyslipidemia Status: Chronic (10) GI bleed Status: Resolved (11) Hypertension Status: Chronic (12) Peripheral vascular disease Status: Chronic (13) Pulmonary edema Status: Resolved (14) Respiratory failure, [id number] Status: Resolved (15) Severe sepsis Status: Resolved Surgical Problems: (1) Status post coronary artery stent placement Status: Resolved Family History Heart disease Hypertension Lung disease Social History Smoking Status: Current Every Day Smoker Drug Use: none Marital Status: single Occupational Status: retired Immunizations History of Influenza Vaccine: Yes History of Tetanus Vaccine?: unknown History of Pneumococcal: Yes History of Hepatitis B Vaccine: Unknown Multi-Drug Resistant Organisms History of MDRO: Yes Type of MDRO: MRSA Allergies Coded Allergies: No Known Allergies (Verified , 06/04/17) Home Medications Scheduled Amiodarone HCl (Amiodarone HCl), 400 MG PO DAILY Aspirin (Aspirin Chewable), 81 MG PO DAILY Atorvastatin (Lipitor), 80 MG PO HS Coenzyme Q10 (Ubidecarenone) (Co Q10), 2 CAP PO QAM Docusate Sodium (Colace), 100 MG PO DAILY Ferrous Sulfate (Fe Tabs), 325 MG PO QA Finasteride (Proscar), 5 MG PO QAM Fluticasone Prop/Salmeterol (Advair Diskus 250/50 60 Dose), 1 PUFF INH Q12H Furosemide (Lasix), 40 MG PO DAILY Gabapentin (Gabapentin), 100 MG PO Q8 Home O2 Therapy (Oxygen), 2 LITERS NA PRN Magnesium Oxide (Mag-Ox), 400 MG PO QAM Metoprolol Succ (Toprol Xl) (Toprol-Xl), 12.5 MG PO BID Omeprazole (Prilosec), 40 MG PO DAILY Potassium Ext Rel (Klor-Con), 20 MEQ PO DAILY Spironolactone (Spironolactone), 25 MG PO DAILY Tamsulosin HCl (Tamsulosin HCl), 1 CAP PO BID Tiotropium [place] (Spiriva Handihaler), 1 CAP INH DAILY Scheduled PRN Acetaminophen (Tylenol), 650 MG PO Q6 PRN for Pain Albuterol Hfa (Ventolin Hfa), 2 PUFFS INH Q6 PRN for Wheezing Fluticasone Propionate (Nasal) (Flonase Allergy Relief), 2 SPRAYS DARREN DAILY PRN for Nasal Congestion Ipratropium-Albuterol (Duoneb), 1 TREATMENT NEB Q6 PRN for SOB/Wheezing Nitroglycerin (Nitrostat), 0.4 MG SL UD PRN for Chest Pain Prednisone (Prednisone), 5 MG PO UD PRN for EMERGENCY KIT Saline ([place] Nasal [place]), 2 SPRY DARREN UD PRN for nasal congestion or dryness Review of Systems Constitutional: + weakness, No fever, No chills Respiratory: + cough, + sputum, + wheezing, + shortness of breath, + dyspnea on exertion, + dyspnea at rest, No hemoptysis Cardiovascular: No chest pain Abdomen: No pain, No nausea, No vomiting, No diarrhea Musculoskeletal: + joint pain (R LE), No swelling Genitourinary - Male: No hematuria, No dysuria, No urinary frequency, No urinary urgency Psychiatric: No depression symptoms, No anxiety, No insomnia Endocrine: + fatigue, No excessive urination Hematologic / Lymphatic: No abnormal bleeding/bruising Integumentary: No rash Allergic / Immunologic: No environmental allergies, No seasonal allergies Physical Exam Vital Signs Date Time Temp Pulse Resp B/P (MAP) Pulse Ox O2 Delivery O2 Flow Rate FiO2 06/11/17 10:59 86 20 113/61 94 Nasal Cannula 4.0 06/11/17 10:21 87 24 113/61 92 Nasal Cannula 4.0 06/11/17 10:01 90 22 113/61 94 Nasal Cannula 4.0 06/11/17 09:35 93 Nasal Cannula 4.0 06/11/17 09:35 91 06/11/17 09:27 95 Nasal Cannula 4.0 06/11/17 09:23 95 Nasal Cannula 4.0 06/11/17 09:21 103 25 164/91 95 Nasal Cannula 4.0 06/11/17 09:15 37.0 110 24 164/91 95 Nasal Cannula 4.0 General Appearance: + mild distress (mild respiratory distress), + cachetic, + thin Head: normocephalic, atraumatic Eyes: normal inspection ENT: hearing grossly normal Respiratory/Chest: + respiratory distress, + decreased breath sounds, + wheezing (end expiratory wheezing diffusely) Abdomen/GI: normal bowel sounds, non tender, soft Extremities/Musculoskelatal: + pertinent finding (L AKA) Neurologic/Psych: no motor/sensory deficits, alert, normal mood/affect Skin: normal color Lymphatic: no adenopathy Diagnostics Laboratory Results Results Past 24 Hours Test 06/11/17 09:31 06/11/17 09:44 06/11/17 09:48 Range/Units Urine Color YELLOW Urine Appearance CLEAR CLEAR Urine pH 6.0 4.5-7.5 Urine Specific [place] 1.014 1.000-1.030 Urine Protein NEG NEG Urine Glucose (UA) NEG NEG Urine Ketones NEG NEG Urine Occult Blood NEG NEG Urine Nitrite NEG NEG Urine Bilirubin NEG NEG Urine Urobilinogen NEG NEG Urine Leukocyte Esterase NEG NEG Urine WBC (Auto) 0 0-5 /hpf Urine RBC (Auto) 0-4 0-4 /hpf Urine Hyaline Casts (Auto) 1-5 0-5 /lpf Urine Epithelial Cells (Auto) 0-5 0-5 /lpf Urine Bacteria (Auto) NEG NEG White Blood Count 13.62 4.8-10.8 K/uL Red Blood Count 2.96 4.7-6.1 M/uL Hemoglobin 8.5 14.0-18.0 g/dL Hematocrit 27.9 42-52 % Mean Corpuscular Volume 94.3 80-100 fL Mean Corpuscular Hemoglobin 28.7 25-34 pg Mean Corpuscular Hemoglobin Concent 30.5 32-36 g/dl Platelet Count 312 130-400 K/uL Mean Platelet Volume 9.5 7.4-10.4 fL Neutrophils (%) (Auto) 88.9 % Lymphocytes (%) (Auto) 6.3 % Monocytes (%) (Auto) 4.1 % Eosinophils (%) (Auto) 0.1 % Basophils (%) (Auto) 0.1 % Neutrophils # (Auto) 12.11 1.4-6.5 K/uL Lymphocytes # (Auto) 0.86 1.2-3.4 K/uL Monocytes # (Auto) 0.56 0.11-0.59 K/uL Eosinophils # (Auto) 0.01 0-0.5 K/uL Basophils # (Auto) 0.01 0-0.2 K/uL RDW Standard Deviation 51.7 36.4-46.3 fL RDW Coefficient of Variation 14.9 11.5-14.5 % Immature Granulocyte % (Auto) 0.5 % Immature Granulocyte # (Auto) 0.07 0.00-0.02 K/uL Ovalocytes 1+ Erythrocyte Sedimentation Rate 64 0-14 mm/hr Prothrombin Time 11.7 9.0-12.0 SECONDS Prothromb Time International Ratio 1.1 0.9-1.1 Activated Partial Thromboplast Time 25.1 21.0-31.0 SECONDS Partial Thromboplastin Ratio 1.0 Venous Blood pH 7.41 7.36-7.41 Venous Blood Partial Pressure CO2 59 38.0-50.0 mmHg Venous Blood Partial Pressure O2 43 mmHg Venous Blood HCO3 37 mmol/L Venous Blood Oxygen Saturation 74.4 % Venous Blood Base Excess 10.4 mEq/L Sodium Level 137 136-145 mmol/L Potassium Level 3.9 3.5-5.1 mmol/L Chloride Level 97 98-107 mmol/L Carbon Dioxide Level 36 21-32 mmol/L Anion Gap 4.0 3-11 mmol/L Blood Urea Nitrogen 23 7-18 mg/dl Creatinine 0.63 0.60-1.40 mg/dl Est Creatinine Clear Calc Drug Dose 63.5 ml/min Estimated GFR () 110.9 Estimated GFR (Non- 95.7 BUN/Creatinine Ratio 36.5 10-20 Random Glucose 131 70-99 mg/dl Calcium Level 9.1 8.5-10.1 mg/dl Magnesium Level 1.9 1.8-2.4 mg/dl Total Bilirubin 0.3 0.2-1 mg/dl Aspartate Amino Transf (AST/SGOT) 25 15-37 U/L Alanine Aminotransferase (ALT/SGPT) 13 12-78 U/L Alkaline Phosphatase 75 45-117 U/L Total Creatine Kinase 74 39-308 U/L Creatine Kinase MB 2.8 0.5-3.6 ng/ml Creatine Kinase MB Ratio 3.8 0-3.0 Troponin I 0.201 0-0.045 ng/ml C-Reactive Protein 7.34 0-0.29 mg/dl Pro-B-Type Natriuretic Peptide 59158 0-1800 pg/ml Total Protein 6.4 6.4-8.2 gm/dl Albumin 2.6 3.4-5.0 gm/dl Globulin 3.7 2.5-4.0 gm/dl Albumin/Globulin Ratio 0.7 0.9-2 Bedside Lactic Acid Venous 1.27 0.90-1.70 mmol/L Microbiology Results 06/11/17 Blood Culture, Received Pending 06/11/17 Blood Culture, Received Pending Diagnostic Radiology CHEST ONE VIEW PORTABLE CLINICAL HISTORY: Sepsis COMPARISON STUDY: 06/10/2017 FINDINGS: The heart is enlarged. There is radiographic evidence of congestive failure with interstitial edema. There are bilateral pleural effusions. There are more focal airspace opacities within the left lower lobe. Superimposed pneumonia cannot be excluded.[ IMPRESSION: 1. Radiographic evidence of congestive failure with interstitial edema and bilateral pleural effusions 2. More focal left basal airspace opacities, consistent with either focal edema or a superimposed pneumonia EKG Sinus tachycardia Possible Left atrial enlargement Left bundle branch block Abnormal ECG Impression Assessment and Plan This is a 77 year old male with a complex medical history, including CAD s/p stent in , severe COPD and chronic respiratory failure on 2L O2 continuously , severe ischemic cardiomyopathy with EF of ~ 20%, traumatic L lower leg amputation presents with worsening shortness of breath. Acute COPD exacerbation Acute on Chronic Respiratory Failure patient with severe emphysema on chronically on 2L of O2 continuously presents with worsening shortness of breath, wheezing, with improvement of Solu- medrol and nebulizers this is likely an exacerbation of his COPD will start Solu-medrol 40mg q8 Levaquin nebulizers around the clock pulmonary consult for further input - patient was to see pulmonology as outpatient for possible CT scan continue O2 as needed and wean back to 2L when breathing improves Ischemic Cardiomyopathy Acute on Chronic Systolic CHF, with EF ~ 20% patient is on dual diuretic therapy (Lasix + Aldactone) he refused ICD placement in the past CXR suggests fluid/edema BNP elevated took his Lasix and Aldactone this morning will give another 20mg of Lasix via IV; monitor blood pressure currently on Amiodarone 400mg BID until June 24, and then 200mg daily cardiology consulted Elevated Troponin in the setting of CAD denies any chest pain elevated troponin likely from ischemia from COPD as well as CHF exacerbation we will monitor in tele trend cardiac enzymes echo done in February 2017; will consult cardiology for further input stent placed in 1996 Plavix recently stopped at [facility]; continue aspirin, Toprol XL 12.5mg BID, and high intensity statin DVT ppx subq heparin FULL CODE, NO MECHANICAL VENT VTE Prophylaxis VTE Risk Assessment Done? Y/N: Yes Risk Level: High
[2017-06-11] MEDS ORDERED: FUROSEMIDE INJ 20 MG in SYRINGE 0 ML IV SCH (13:00)
[2017-06-11] MEDS ORDERED: PIPERACILL/TAZOBAC IV 3.375 GM in DEXTROSE 5% 100ML IV ONE (13:15)
[2017-06-11] MEDS ORDERED: PIPERACILL/TAZOBAC CONSULT ACTIVE PRN (13:15)
[2017-06-11] MEDS: METHYLPREDNISOLONE IV 40 MG in SYRINGE 0 ML IV SCH ×2 (13:49→22:00)
--- NOTE | 2017-06-11 14:03 | CARDIOLOGY CONSULTATION ---
DATE OF CONSULTATION: 06/11/2017 DATE OF CONSULTATION: 06/11/2017 CONSULTATION FOR: Rhonda thompson. REASON FOR CONSULTATION: Shortness of breath. HISTORY OF PRESENT ILLNESS: This is a 77-year-old male patient with multiple medical problems. 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 He is on chronic home oxygen. He also has a history of ischemic heart disease with an ischemic cardiomyopathy and an estimated left ventricular ejection fraction of 20-25%. He has moderate aortic stenosis. He also has a history of peripheral vascular disease status post abdominal aortic aneurysm repair. The patient had a amputation of his left lower extremity I believe for peripheral vascular disease. There is a graft that is described by his son as possibly being on axial fem graft. In any case, he had a seroma and at the end of March went to [facility] in [place] where he had the seroma debrided and drained. He actually did well after that surgery. He was seen in followup by his compounder helper, Dr. Mart at which time he was doing well. Unfortunately, he had a reaccumulation of the fluid and this past week went back to [facility] and after evaluation they noted that he had a leakage of the graft into the groin which was not a low risk leak, but enough to cause the seroma which then would tamponade off the leak. In any case, they occluded the graft and allowed the patient to then come home. He was not allowed to smoke while at the hospital and according to son the patient had 2 cigarettes while driving back to [place]. Son stopped at [facility] to get some prescriptions when he came out his father was minimally responsive. He was brought to the hospital where he was noted to be hypoxic and in respiratory extremis. He has been admitted to the hospital for further care. ALLERGIES: No known medical allergies. PAST MEDICAL HISTORY: Most of the patient's past medical history is around cigarette smoking and vascular as well as lung disease from tobacco abuse. He has severe oxygen dependent COPD. He has had previous peripheral vascular disease as described in the history of chief complaint. He has an ischemic cardiomyopathy with an estimated left ventricular ejection fraction around 20-25% with chronic systolic heart failure. FAMILY MEDICAL HISTORY: Noncontributory. SOCIAL HISTORY: The patient continues to smoke. He is single. REVIEW OF SYSTEMS: A 10-point review of systems is negative except for the history of chief complaint. PHYSICAL EXAMINATION: GENERAL: He is alert and oriented. VITAL SIGNS: Blood pressure is 110/70, pulse is irregular at 80 beats per minute. He is afebrile. HEAD, EYES, EARS, NOSE, AND THROAT: He is normocephalic. He wears corrective lenses. NECK: The neck veins are flat. Carotids have good upstrokes bilaterally without bruits. Thyroid is nonpalpable. RESPIRATORY: The patient has rales and rhonchi throughout the lung reed. CARDIOVASCULAR: Heart has a regular rhythm. There are no murmurs. GASTROINTESTINAL: Abdomen is soft, nontender without organomegaly. EXTREMITIES: The patient has a left above the knee amputation. NEUROLOGIC: Grossly intact. SKIN: Warm to touch. LYMPH NODES: Negative to palpation. IMPRESSIONS: 1. Severe chronic obstructive pulmonary disease with exacerbation. 2. Continued cigarette smoking. 3. Peripheral vascular disease with left above the knee amputation with a recent drainage of a seroma. 4. Ischemic heart disease with an ischemic cardiomyopathy and severe LV dysfunction with an estimated left ventricular ejection fraction 20%. RECOMMENDATIONS: At this point, I think supportive care from a cardiac standpoint is indicated. He has continued to wheeze and actually using accessory muscles to breath. I would recommend a pulmonary consult in this complex patient. We will follow along with you during his hospital stay.
--- NOTE | 2017-06-11 14:23 | History and Physical ---
History & Physical Date of Service Jun 11, 2017. History & Physical TO NOTE: DVT PPX, ANTICOAGULATION CONTRAINDICATED DUE TO RECENT L GROIN SURGERY AND SIGNIFICANT BLEEDING
[2017-06-11] MEDS: IPRATROPIUM BROMIDE NEB SOLN 0.02% 2.5 ML VIAL INH SCH ×2 (14:28→19:41)
[2017-06-11] MEDS: LEVALBUTEROL 0.63MG/3 ML NEB INH SCH ×2 (14:28→19:41)
[2017-06-11] MEDS: GABAPENTIN 100 MG CAP PO SCH ×2 (14:51→22:00)
[2017-06-11] MEDS ORDERED: FUROSEMIDE INJ 20 MG in SYRINGE 0 ML IV ONE (15:00)
[2017-06-11 18:14] LABS: CKMB/CK RATIO 3.9 (0-3.0)
--- NOTE | 2017-06-11 18:41 | Pulmonary Consultation ---
History General Date of Service: Jun 11, 2017. Stated Complaint: Copd Exacerbation,Elevated Troponin HPI The patient is a 77 year old male who presents to [facility] with complaints of Copd Exacerbation,Elevated Troponin. The patient's primary care provider is Andrew Hinton MD. Mr. Mascorro 77 year old man complicated medical history. His past medical history of Chronic anemia, severe COPD on long-term oxygen therapy, Tobacco use disorder,History of ischemic cardiomyopathy with an estimated ejection fraction 20 to 25%.Presented To the ER todayWith complaints of worsening dyspnea. We recently discharged From [facility] on June 10, 2017.After one week hospitalization for complications of left axial femoral graft debridement. Patient as found to have left femoral arterial bleeding. Hemostasis /tamponade was obtained via compression bags with subsequent thrombus formation seen with angiography. All anticoagulation and platelet therapy has been discontinued. On the way back, patient fell off to sleep. His son stopped at [facility] to picked edge sewing machine operator his prescriptions and drove him home. When he arrived and attempted to take his father to his apartment he was barely responsive and slumped over. He immediately called EMS. Upon their arrival, he was noted to have a SaO2 in the 60's. In the ER he was found to have his SaO2 was 94% on 2L.He was given nebulizer treatment, steroids they recommended an admission and further work up. However patient declined as he has been discharged the same day. This morning, patient states that his symptoms worsened. He complained of worsened shortness of breath, cough with productive sputum associated with wheezing, dyspnea on exertion and at rest. He denies any fever, chills, chest pain, dizziness or lightheadedness and GI or symptoms. He has had decreased appetite and lost a significant amount of weight recently, but is unable to quantify. He states that he follow up with a Hand [employer] at [facility]. He was supposed to have a repeat CT for abnormal density of LLL. He is currently on 2L NC, Advair Diskus, Spiriva, albuterol, Flonase and Lasix. Initial VS in the ER today, showed Tm 37, BP, P 110, RR 25, SaO2 95 on 4L NC Labs were significant for BNP 04215, troponin 0.201. VBG showed 7.44/59/43/37/ 74%. EKG showed sinus tachycardia with left atrial enlargement and LBBB. CXR showed bilateral pleural effusions, pulmonary edema suggestive of heart failure. Focal LLL opacities were noted. Historian: patient, family Onset: just prior to arrival Severity: severe Complaint Status: improved Review of Systems Constitutional: reports: as stated in HPI Eyes: reports: as stated in HPI ENT: reports: as stated in HPI Cardiovascular: reports: as stated in HPI Respiratory: reports: as stated in HPI Gastrointestinal: reports: as stated in HPI Genitourinary - Male: reports: as stated in HPI Musculoskeletal: reports: as stated in HPI Integumentary: reports: as stated in HPI Neurologic: reports: as stated in HPI Psychiatric: reports: as stated in HPI Endocrine: as stated in HPI Hematologic / Lymphatic: as stated in HPI Allergic / Immunologic: as stated in HPI All Other Symptoms All Other Systems: Reviewed and Negative Past Medical History Past Medical History: Abdominal collection AAA HTN Dyslipidemia Ischemic cardiomyopathy Tobacco use disorder Elevated PSA Benign neoplasm of colon Above knee amputation of LE 2/2 PVD COPD (very severe) Tomy's esophagus Bilateral pulmonary embolism Fasciotomy right LE 2/2 DVT GI bleed Seroma PAD Past Surgical History: Fasciotomy right lower extremity AKA left lower extremity Family History Heart disease Hypertension Lung disease non contributory Social History Smokes one PPD for 50 years. Has attempted to quit multiple times. Lives in [place]. Previously lived in [place]. 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 Hx Tobacco Use In Past Year?: Yes Smoking Status: Current Every Day Smoker Marital status: single Occupational Status: retired Immunizations History of Influenza Vaccine: Yes History of Tetanus Vaccine?: unknown History of Pneumococcal: Yes History of Hepatitis B Vaccine: Unknown History of MDRO History of MDRO: Yes Type of MDRO: MRSA Allergies Coded Allergies: No Known Allergies (Verified , 06/04/17) Current Medications Reported Home Medications Medications Dose Route/Sig Max Daily Dose Days Date Category Dose Instructions Oxygen Gas 2 Liters NA PRN 06/11/17 Reported Spironolactone 25 Mg Tab 25 Mg PO DAILY 06/10/17 Reported Aspirin Chewable (Aspirin) 81 Mg Chew 81 Mg PO DAILY 06/10/17 Reported Amiodarone HCl 200 Mg Tab 400 Mg PO DAILY 06/10/17 Reported TAKE 400 MG PO BID FOR 14 DAYS, LAST DOSE WILL BE 2016, THEN START 200 MG DAILY STARTING 06/25/2017. Toprol-Xl (Metoprolol Succinate) 25 Mg Tabcr 12.5 Mg PO BID 06/04/17 Reported [place] Nasal [place] (Saline) 0.65 % Spr 2 [place] DARREN UD PRN 06/04/17 Reported Ventolin Hfa (Albuterol) 200 Puffs/39819 Mcg Aers 2 Puffs INH Q6 PRN 06/04/17 Reported Lasix (Furosemide) 40 Mg Tab 40 Mg PO DAILY 06/04/17 Reported Flonase Allergy Relief (Fluticasone Propionate (Nasal)) 50 Mcg/Act Spr 2 Sprays DARREN DAILY PRN 01/23/16 Reported Colace (Docusate Sodium) 100 Mg Cap 100 Mg PO DAILY 01/23/16 Reported Prednisone 5 Mg Tab 5 Mg PO UD PRN 01/23/16 Reported Co Q10 (Coenzyme Q10) 50 Mg Cap 2 Cap PO QAM 01/23/16 Reported Duoneb (Ipratropium-Albuterol) 3 Ml Nebu 1 Treatment NEB Q6 PRN 01/23/16 Reported Spiriva [place] (Tiotropium [place]) 30 Puff/540 Mcg Aerp 1 Cap INH DAILY 02/01/15 Reported Gabapentin 100 Mg Cap 100 Mg PO Q8 02/01/15 Reported Proscar (Finasteride) 5 Mg Tab 5 Mg PO QAM 02/01/15 Reported Prilosec (Omeprazole) 40 Mg Cap 40 Mg PO DAILY 02/01/15 Reported Tamsulosin HCl 0.4 Mg Cap 1 Cap PO BID 02/01/15 Reported Klor-Con (Potassium Chloride) 20 Meq Tabcr 20 Meq PO DAILY 01/18/15 Reported Nitrostat (Nitroglycerin) 0.4 Mg/1 Tab Subl 0.4 Mg SL UD PRN 12/14/14 Reported Mag-Ox (Magnesium Oxide) 400 Mg Tab 400 Mg PO QAM 12/14/14 Reported Tylenol (Acetaminophen) 325 Mg Tab 650 Mg PO Q6 PRN 11/05/14 Reported Lipitor (Atorvastatin Calcium) 80 Mg Tab 80 Mg PO HS 10/19/14 Reported Fe Tabs (Ferrous Sulfate) 325 Mg Tab 325 Mg PO QA 09/11/12 Reported Advair Diskus 250/50 60 Dose (Fluticasone Prop/Salmeterol) 1 Ea Aerp 1 Puff INH Q12H 08/18/12 Reported Physical Physical Exam Vital Signs: Date Time Temp Pulse Resp B/P (MAP) Pulse Ox O2 Delivery O2 Flow Rate FiO2 06/11/17 16:00 96 Nasal Cannula 4.0 06/11/17 15:32 36.4 81 18 107/61 (76) 96 Nasal Cannula 4.0 06/11/17 14:30 76 15 97 4.0 06/11/17 12:56 36.8 81 17 113/61 94 Nasal Cannula 4.0 06/11/17 10:59 86 20 113/61 94 Nasal Cannula 4.0 06/11/17 10:21 87 24 113/61 92 Nasal Cannula 4.0 06/11/17 10:01 90 22 113/61 94 Nasal Cannula 4.0 06/11/17 09:35 93 Nasal Cannula 4.0 06/11/17 09:35 91 06/11/17 09:27 95 Nasal Cannula 4.0 06/11/17 09:23 95 Nasal Cannula 4.0 06/11/17 09:21 103 25 164/91 95 Nasal Cannula 4.0 06/11/17 09:15 37.0 110 24 164/91 95 Nasal Cannula 4.0 General Appearance: thin, cachetic Head: NORMOCEPHALIC, ATRAUMATIC Eyes: PERRLA, NO DISCHARGE, EOMI, SCLERAE NORMAL, CONJUNCTIVAE NORMAL ENT: NORMAL MOUTH EXAM, NORMAL THROAT EXAM Neck: NORMAL RANGE OF MOTION, NO TENDERNESS, TRACHEA MIDLINE, NO STRIDOR, SUPPLE Respiratory: accessory muscle use, other (diminshed breath sound bilaterally, barrel chest) Cardiovasular: REGULAR RATE/RHYTHM, NORMAL S1S2 Abdomen: NON TENDER, NORMAL BOWEL SOUNDS Genitourinary - Male: EXTERNAL GENITALIA NORMAL Lower Extremities: other (LLE above the knee ambulation, RLE thin, no edema, fasciotomy scar +) Edema: LLE Pulses: dorsalis pedis (R) (2+) Neuro: ALERT, ORIENTED x 3, NORMAL SPEECH Psychiatric: NORMAL AFFECT, NO SUICIDAL IDEATION, flat affect Diagnostics Labs Results Past 24 Hours Test 06/11/17 09:31 06/11/17 09:44 06/11/17 09:48 06/11/17 14:31 Range/Units Urine Color YELLOW Urine Appearance CLEAR CLEAR Urine pH 6.0 4.5-7.5 Urine Specific [place] 1.014 1.000-1.030 Urine Protein NEG NEG Urine Glucose (UA) NEG NEG Urine Ketones NEG NEG Urine Occult Blood NEG NEG Urine Nitrite NEG NEG Urine Bilirubin NEG NEG Urine Urobilinogen NEG NEG Urine Leukocyte Esterase NEG NEG Urine WBC (Auto) 0 0-5 /hpf Urine RBC (Auto) 0-4 0-4 /hpf Urine Hyaline Casts (Auto) 1-5 0-5 /lpf Urine Epithelial Cells (Auto) 0-5 0-5 /lpf Urine Bacteria (Auto) NEG NEG White Blood Count 13.62 4.8-10.8 K/uL Red Blood Count 2.96 4.7-6.1 M/uL Hemoglobin 8.5 14.0-18.0 g/dL Hematocrit 27.9 42-52 % Mean Corpuscular Volume 94.3 80-100 fL Mean Corpuscular Hemoglobin 28.7 25-34 pg Mean Corpuscular Hemoglobin Concent 30.5 32-36 g/dl Platelet Count 312 130-400 K/uL Mean Platelet Volume 9.5 7.4-10.4 fL Neutrophils (%) (Auto) 88.9 % Lymphocytes (%) (Auto) 6.3 % Monocytes (%) (Auto) 4.1 % Eosinophils (%) (Auto) 0.1 % Basophils (%) (Auto) 0.1 % Neutrophils # (Auto) 12.11 1.4-6.5 K/uL Lymphocytes # (Auto) 0.86 1.2-3.4 K/uL Monocytes # (Auto) 0.56 0.11-0.59 K/uL Eosinophils # (Auto) 0.01 0-0.5 K/uL Basophils # (Auto) 0.01 0-0.2 K/uL RDW Standard Deviation 51.7 36.4-46.3 fL RDW Coefficient of Variation 14.9 11.5-14.5 % Immature Granulocyte % (Auto) 0.5 % Immature Granulocyte # (Auto) 0.07 0.00-0.02 K/uL Ovalocytes 1+ Erythrocyte Sedimentation Rate 64 0-14 mm/hr Prothrombin Time 11.7 9.0-12.0 SECONDS Prothromb Time International Ratio 1.1 0.9-1.1 Activated Partial Thromboplast Time 25.1 21.0-31.0 SECONDS Partial Thromboplastin Ratio 1.0 Venous Blood pH 7.41 7.36-7.41 Venous Blood Partial Pressure CO2 59 38.0-50.0 mmHg Venous Blood Partial Pressure O2 43 mmHg Venous Blood HCO3 37 mmol/L Venous Blood Oxygen Saturation 74.4 % Venous Blood Base Excess 10.4 mEq/L Sodium Level 137 136-145 mmol/L Potassium Level 3.9 3.5-5.1 mmol/L Chloride Level 97 98-107 mmol/L Carbon Dioxide Level 36 21-32 mmol/L Anion Gap 4.0 3-11 mmol/L Blood Urea Nitrogen 23 7-18 mg/dl Creatinine 0.63 0.60-1.40 mg/dl Est Creatinine Clear Calc Drug Dose 63.5 ml/min Estimated GFR () 110.9 Estimated GFR (Non- 95.7 BUN/Creatinine Ratio 36.5 10-20 Random Glucose 131 70-99 mg/dl Calcium Level 9.1 8.5-10.1 mg/dl Magnesium Level 1.9 1.8-2.4 mg/dl Total Bilirubin 0.3 0.2-1 mg/dl Aspartate Amino Transf (AST/SGOT) 25 15-37 U/L Alanine Aminotransferase (ALT/SGPT) 13 12-78 U/L Alkaline Phosphatase 75 45-117 U/L Total Creatine Kinase 74 39-308 U/L Creatine Kinase MB 2.8 0.5-3.6 ng/ml Creatine Kinase MB Ratio 3.8 0-3.0 Troponin I 0.201 0-0.045 ng/ml C-Reactive Protein 7.34 0-0.29 mg/dl Pro-B-Type Natriuretic Peptide 20057 0-1800 pg/ml Total Protein 6.4 6.4-8.2 gm/dl Albumin 2.6 3.4-5.0 gm/dl Globulin 3.7 2.5-4.0 gm/dl Albumin/Globulin Ratio 0.7 0.9-2 Bedside Lactic Acid Venous 1.27 0.90-1.70 mmol/L Procalcitonin 0.22 0-0.5 ng/ml Test 06/11/17 17:18 06/11/17 17:31 Range/Units Creatine Kinase MB Ratio 0-3.0 Microbiology Results 06/11/17 Blood Culture, Received Pending 06/11/17 Blood Culture, Received Pending Impression Assessment and Plan Acute on chronic hypoxic hypercapnic failure Severe COPD (FEV1 unknown) Oxygen dependence LLL pneumonia Tobacco use disorder Decompensated systolic CHF NSTEMI Malnutrition Failure to thrive Patient has multiple comorbidities. He presents with acute on chronic hypoxic respiratory failure that is multifactorial nature. He was recently hospitalized for surgical procedure for bleeding femoral artery that has been stabilized. FEV1 is currently unknown at this point, but he does have the body habitus of someone with severe COPD. He has LLE amputation secondary to PVD, but is able to transfer independently when he is in his normal state. Dyspnea now limits him from doing this. He is an active tobacco smoker smoking 1ppd, which is also contributing to his progressive decline. His BNP is elevated and CXR appears to be overloaded, most likely representing decompensated systolic CHF. Troponin are also elevated which may be secondary to overall myocardial stretch. Cardiology is on board and optimizing medications.He has been offered AICD in the past, but declined. Ideally, he should be aggressively diuresed and kept in negative balance as his kidney function tolerates. From a respiratory standpoint, Continue with supplemental oxygen to maintain SaO2 88-92%. If he should decompensate further I would place him on BiPAP to assist with the work of breathing and to decrease preload. I spoke to him and son at length about goals of care. He would like a trial of intubation, if his respiratory failure is reversible within one week, but does not want life prolonging mechanical ventilation. He does is a DNR. This should be changed in the EMR. I offered him thoracentesis if needed, but he also declined this therapy. Continue with nebulizer treatments q6h, continue with empiric empiric abx. If treating for pneumonia this would be considered HCAP and antibiotics should be broadened. Send a sputum culture. Continue with corticosteroids. Continue with Spiriva, I would hold Advair until discharge. Encourage flutter valve for pulmonary toilet. Obtain CTA to rule of PE and evaluate LLL parenchyma as patient is a coagulopathy and is currently no any DVT ppx. Obtain a speech and swallow evaluation as he complains of dysphagia. Consider nutrition consult and protein supplementation for decreased PO intake and failure to thrive. Provide nicotine patch for tobacco use disorder I appreciate the consult.
[2017-06-11] MEDS ORDERED: HEPARIN SOD 5000 UNIT/0.5 ML CARP SQ SCH (21:00)
[2017-06-11] MEDS: PIPERACILL/TAZOBAC IV 3.375 GM in DEXTROSE 5% 100ML 100 ML IV SCH (22:00)
[2017-06-11] MEDS: LORAZEPAM 0.5 MG TAB PO PRN (22:00)
[2017-06-11] MEDS: ATORVASTATIN 40 MG TAB PO SCH (22:01)
[2017-06-11] MEDS: METOPROLOL SUCC 25MG EXT REL TAB PO SCH (22:01)
[2017-06-11] MEDS: FUROSEMIDE INJ 20 MG in SYRINGE 0 ML IV SCH (22:01)
[2017-06-11] MEDS: AMIODARONE 200 MG TAB PO SCH (22:01)
[2017-06-11] MEDS: TAMSULOSIN HCL 0.4 MG CAP PO SCH (22:02)
[2017-06-11] MEDS: FLUTICASONE/SALMETEROL 250/50 (ADVAIR) 14 PUFF/1 INHALER INH SCH (22:02)
[2017-06-12] VITALS (17 sets, daily range): BP systolic 101–123; BP diastolic 52–74; PULSE 68–79; TEMP 36.4–36.6; O2SAT 93–98
[2017-06-12 00:52] LABS: HEMATOCRIT 22.4 % (42-52); MEAN CELL VOLUME 92.6 fL (80-100); MEAN CORPUSCULAR HEMOGLOBIN 29.8 pg (25-34); MEAN CORPUSCULAR HGB CONC 32.1 g/dl (32-36); MEAN PLATELET VOLUME 9.5 fL (7.4-10.4); PLATELET COUNT 259 K/uL (130-400); RED BLOOD COUNT 2.42 M/uL (4.7-6.1); WHITE BLOOD COUNT 7.66 K/uL (4.8-10.8)
[2017-06-12 01:11] LABS: BUN/CREATININE RATIO 29.5 (10-20); CALCIUM 8.5 mg/dl (8.5-10.1); CREATININE 0.65 mg/dl (0.60-1.40); MAGNESIUM 1.9 mg/dl (1.8-2.4); POTASSIUM 3.4 mmol/L (3.5-5.1)
[2017-06-12 01:22] LABS: THYROID STIMULATING HORMONE 0.789 uIu/ml (0.300-4.500)
[2017-06-12] MEDS: IPRATROPIUM BROMIDE NEB SOLN 0.02% 2.5 ML VIAL INH SCH ×3 (02:05→19:04)
[2017-06-12] MEDS: LEVALBUTEROL 0.63MG/3 ML NEB INH SCH ×4 (02:05→19:04)
--- NOTE | 2017-06-12 04:46 | Progress Note ---
Internal Med Progress Note Date of Service: Jun 12, 2017. Provider Documentation: Made aware by RN of Hemoglobin drop to 7.2 from 8.5 overnight. No overt bleeding noted. Patient denies unusual groin pain/swelling. AP Acute on chronic anemia, hemoglobin drop Transfuse packed RBC to maintain hemoglobin greater than 8 given history of CAD. Hold aspirin until H&H stable. Will relay to AM provider. Vital Signs: Date Time Temp Pulse Resp B/P (MAP) Pulse Ox O2 Delivery O2 Flow Rate FiO2 06/12/17 10:29 36.6 73 17 106/54 96 4.0 06/12/17 09:59 36.6 71 16 109/55 97 4.0 06/12/17 09:33 36.4 75 16 123/61 95 4.0 06/12/17 08:00 93 Nasal Cannula 4.0 06/12/17 07:53 36.5 78 17 109/52 (71) 93 Nasal Cannula 4.0 06/12/17 07:12 70 16 94 4.0 06/12/17 04:00 79 16 117/60 (79) 94 Nasal Cannula 4.0 06/12/17 04:00 Nasal Cannula 06/12/17 02:05 70 16 98 4.0 06/12/17 00:10 Nasal Cannula 06/11/17 23:30 36.7 76 20 109/52 (71) 98 Nasal Cannula 4.0 06/11/17 20:00 Nasal Cannula 06/11/17 19:50 36.8 82 20 112/60 (77) 99 Nasal Cannula 4.0 06/11/17 19:41 86 16 99 4.0 06/11/17 16:00 96 Nasal Cannula 4.0 06/11/17 15:32 36.4 81 18 107/61 (76) 96 Nasal Cannula 4.0 06/11/17 14:30 76 15 97 4.0 Lab Results: Results Past 24 Hours Test 06/11/17 14:31 06/11/17 17:31 06/12/17 00:42 06/12/17 13:23 Range/Units Procalcitonin 0.22 0-0.5 ng/ml Total Creatine Kinase 62 44 39-308 U/L Creatine Kinase MB 2.4 1.3 0.5-3.6 ng/ml Creatine Kinase MB Ratio 3.9 3.0 0-3.0 Troponin I 0.200 0.169 0-0.045 ng/ml White Blood Count 7.66 4.8-10.8 K/uL Red Blood Count 2.42 4.7-6.1 M/uL Hemoglobin 7.2 14.0-18.0 g/dL Hematocrit 22.4 42-52 % Mean Corpuscular Volume 92.6 80-100 fL Mean Corpuscular Hemoglobin 29.8 25-34 pg Mean Corpuscular Hemoglobin Concent 32.1 32-36 g/dl RDW Standard Deviation 51.1 36.4-46.3 fL RDW Coefficient of Variation 15.0 11.5-14.5 % Platelet Count 259 130-400 K/uL Mean Platelet Volume 9.5 7.4-10.4 fL Sodium Level 138 136-145 mmol/L Potassium Level 3.4 3.5-5.1 mmol/L Chloride Level 95 98-107 mmol/L Carbon Dioxide Level 39 21-32 mmol/L Anion Gap 4.0 3-11 mmol/L Blood Urea Nitrogen 19 7-18 mg/dl Creatinine 0.65 0.60-1.40 mg/dl Est Creatinine Clear Calc Drug Dose 61.5 ml/min Estimated GFR () 109.5 Estimated GFR (Non- 94.5 BUN/Creatinine Ratio 29.5 10-20 Random Glucose 130 70-99 mg/dl Calcium Level 8.5 8.5-10.1 mg/dl Magnesium Level 1.9 1.8-2.4 mg/dl Thyroid Stimulating Hormone (TSH) 0.789 0.300-4.500 uIu/ml
[2017-06-12] MEDS: METHYLPREDNISOLONE IV 40 MG in SYRINGE 0 ML IV SCH ×3 (05:42→21:35)
[2017-06-12] MEDS: PIPERACILL/TAZOBAC IV 3.375 GM in DEXTROSE 5% 100ML 100 ML IV SCH ×3 (05:42→21:36)
[2017-06-12] MEDS: GABAPENTIN 100 MG CAP PO SCH ×3 (05:43→22:00)
[2017-06-12] MEDS: LORAZEPAM 0.5 MG TAB PO PRN ×2 (05:48→21:36)
[2017-06-12] MEDS: TIOTROPIUM BROMIDE 5 PUFF/90 MCG INH INH SCH (07:48)
[2017-06-12] MEDS: FLUTICASONE/SALMETEROL 250/50 (ADVAIR) 14 PUFF/1 INHALER INH SCH ×2 (07:48→21:34)
[2017-06-12] MEDS: SPIRONOLACTONE 25 MG TAB PO SCH (07:49)
[2017-06-12] MEDS: FUROSEMIDE INJ 20 MG in SYRINGE 0 ML IV SCH ×2 (07:49→21:35)
[2017-06-12] MEDS: POTASSIUM CHLORIDE 20 MEQ TABCR PO SCH (07:50)
[2017-06-12] MEDS: METOPROLOL SUCC 25MG EXT REL TAB PO SCH ×2 (07:50→21:35)
[2017-06-12] MEDS: FERROUS SULFATE 325 MG TAB PO SCH (07:51)
[2017-06-12] MEDS: FINASTERIDE 5 MG TAB PO SCH (07:51)
[2017-06-12] MEDS: PANTOprazole SOD 40 MG TAB PO SCH (07:51)
[2017-06-12] MEDS: MAGNESIUM OXIDE 400 MG TAB PO SCH (07:51)
[2017-06-12] MEDS: DOCUSATE SODIUM 100 MG CAP PO SCH (07:52)
[2017-06-12] MEDS: AMIODARONE 200 MG TAB PO SCH ×2 (07:52→21:35)
[2017-06-12] MEDS: TAMSULOSIN HCL 0.4 MG CAP PO SCH ×2 (07:52→21:35)
[2017-06-12] MEDS ORDERED: FUROSEMIDE 40 MG TAB PO SCH (09:00)
[2017-06-12] MEDS ORDERED: ASPIRIN 81 MG ECTAB PO SCH ×2 (09:00)
[2017-06-12] MEDS ORDERED: OPTIRAY 320 IV PRN (09:15)
--- NOTE | 2017-06-12 09:26 | Progress Note ---
Subjective Date of Service: Jun 12, 2017. Subjective Pt evaluation today including: conversation w/ patient, physical exam, lab review, review of studies, conversation w/ service delivery consultant, review of inpatient medication list Saw/examined the patient in room 217 States he feels fine, breathing improved, no chest pain, denies bleeding Problem List Medical Problems: (1) Anemia Status: Chronic (2) Dehydration Status: Acute (3) Diarrhea Status: Acute (4) Elevated troponin Status: Acute (5) Generalized weakness Status: Acute (6) Hip hematoma, left Status: Acute (7) Hypoxia Status: Acute (8) Near syncope Status: Acute (9) Oxygen dependent Status: Acute (10) Postoperative seroma Status: Acute (11) Tobacco abuse Status: Acute Review of Systems Constitutional: + weakness Respiratory: + cough, + sputum, + wheezing, + shortness of breath, + dyspnea on exertion Cardiac: No chest pain, No palpitations Abdomen: No pain, No nausea, No vomiting, No diarrhea Medications Current Inpatient Medications Medications (Trade) Dose Ordered Sig/Linda Route Start Time Stop Time Status Last Admin Dose Admin Ipratropium [place] (Atrovent 0.02% 0.5MG/2.5ML Neb) 0.5 mg Q8R INH 06/11/17 16:00 07/11/17 15:59 06/12/17 07:11 0.5 MG Levalbuterol (Xopenex 0.63 Mg/ 3 Ml Neb) 0.63 mg Q6R INH 06/11/17 15:00 07/11/17 14:59 06/12/17 07:11 0.63 MG Methylprednisolone Sodium Succinate 40 mg/Syringe 0.64 ml @ 1.5 mls/min Q8 IV 06/11/17 14:00 07/11/17 13:59 06/12/17 05:42 1.5 MLS/MIN Amiodarone HCl (Cordarone Tab) 400 mg BID PO 06/11/17 21:00 06/24/17 23:59 06/12/17 07:52 400 MG Atorvastatin Calcium (Lipitor Tab) 80 mg HS PO 06/11/17 21:00 07/11/17 20:59 06/11/17 22:01 80 MG Docusate Sodium (coLACE CAP) 100 mg DAILY PO 06/12/17 09:00 07/12/17 08:59 06/12/17 07:52 100 MG Ferrous Sulfate (Feosol Tab) 325 mg DAILY PO 06/12/17 09:00 07/12/17 08:59 06/12/17 07:51 325 MG Finasteride (Proscar Tab) 5 mg QAM PO 06/12/17 09:00 07/12/17 08:59 06/12/17 07:51 5 MG Salmeterol Xinafoate/ Fluticasone (Advair Diskus 250/50 Inh) 1 puff Q12 INH 06/11/17 21:00 07/11/17 20:59 06/12/17 07:48 1 PUFF Fluticasone Propionate (Flonase Nasal [place]) 2 sprays DAILY PRN DARREN 06/11/17 11:30 07/11/17 11:29 Gabapentin (Neurontin Cap) 100 mg Q8 PO 06/11/17 14:00 07/11/17 13:59 06/12/17 05:43 100 MG Magnesium Oxide (Mag-Ox Tab) 400 mg QAM PO 06/12/17 09:00 07/12/17 08:59 06/12/17 07:51 400 MG Metoprolol Succinate (Toprol Xl Tab) 12.5 mg BID PO 06/11/17 21:00 07/11/17 20:59 06/12/17 07:50 12.5 MG Nitroglycerin (Nitrostat Tab) 0.4 mg UD PRN SL 06/11/17 11:30 07/11/17 11:29 Potassium Chloride (Klor-Con Tab) 20 meq DAILY PO 06/12/17 09:00 07/12/17 08:59 06/12/17 07:50 20 MEQ Spironolactone (Aldactone Tab) 25 mg DAILY PO 06/12/17 09:00 07/12/17 08:59 06/12/17 07:49 25 MG Tamsulosin HCl (Flomax Cap) 0.4 mg BID PO 06/11/17 21:00 07/11/17 20:59 06/12/17 07:52 0.4 MG Tiotropium [place] (Spiriva Handihaler Inhaler) 1 puff DAILY INH 06/12/17 09:00 07/12/17 08:59 06/12/17 07:48 1 PUFF Pantoprazole Sodium (Protonix Tab) 40 mg QAM PO 06/12/17 09:00 07/12/17 08:59 06/12/17 07:51 40 MG Acetaminophen (Tylenol Tab) 650 mg Q6 PRN PO 06/11/17 12:45 07/11/17 12:44 Amiodarone HCl (Cordarone Tab) 200 mg DAILY PO 06/25/17 09:00 07/25/17 08:59 Piperacillin Sod/ Tazobactam Sod 3.375 gm/Dextrose 115 ml @ 28.75 mls/ hr Q8H IV 06/11/17 22:00 06/18/17 21:59 06/12/17 05:42 28.75 MLS/HR Piperacillin Sod/ Tazobactam Sod (Consult) 1 ea UD PRN N/A 06/11/17 13:15 07/11/17 13:14 Furosemide 20 mg/ Syringe 2 ml @ 4 mls/min BID IV 06/11/17 23:00 07/11/17 22:59 06/12/17 07:49 4 MLS/MIN Lorazepam (Ativan Tab) 0.5 mg TID PRN PO 06/11/17 18:00 07/11/17 17:59 06/12/17 05:48 0.5 MG Potassium Chloride 10 meq/ Prmx 100 ml @ 100 mls/hr Q1H IV 06/12/17 08:45 06/12/17 10:44 Objective Vital Signs Date Time Temp Pulse Resp B/P (MAP) Pulse Ox O2 Delivery O2 Flow Rate FiO2 06/12/17 07:53 36.5 78 17 109/52 (71) 93 Nasal Cannula 4.0 06/12/17 07:12 70 16 94 4.0 06/12/17 04:00 79 16 117/60 (79) 94 Nasal Cannula 4.0 06/12/17 04:00 Nasal Cannula 06/12/17 02:05 70 16 98 4.0 06/12/17 00:10 Nasal Cannula 06/11/17 23:30 36.7 76 20 109/52 (71) 98 Nasal Cannula 4.0 06/11/17 20:00 Nasal Cannula 06/11/17 19:50 36.8 82 20 112/60 (77) 99 Nasal Cannula 4.0 06/11/17 19:41 86 16 99 4.0 06/11/17 16:00 96 Nasal Cannula 4.0 06/11/17 15:32 36.4 81 18 107/61 (76) 96 Nasal Cannula 4.0 06/11/17 14:30 76 15 97 4.0 06/11/17 12:56 36.8 81 17 113/61 94 Nasal Cannula 4.0 06/11/17 10:59 86 20 113/61 94 Nasal Cannula 4.0 06/11/17 10:21 87 24 113/61 92 Nasal Cannula 4.0 06/11/17 10:01 90 22 113/61 94 Nasal Cannula 4.0 06/11/17 09:35 93 Nasal Cannula 4.0 06/11/17 09:35 91 06/11/17 09:27 95 Nasal Cannula 4.0 06/11/17 09:23 95 Nasal Cannula 4.0 06/11/17 09:21 103 25 164/91 95 Nasal Cannula 4.0 06/11/17 09:15 37.0 110 24 164/91 95 Nasal Cannula 4.0 Physical Exam General Appearance: no apparent distress, + pertinent finding (+weak, + lethargic) Respiratory/Chest: no respiratory distress, no accessory muscle use, + decreased breath sounds, + wheezing (diffuse wheezing) Cardiovascular: regular rate, rhythm, no edema, no murmur Abdomen: normal bowel sounds, non tender, soft Extremities: normal inspection, no pedal edema Neurologic/Psychiatric: no motor/sensory deficits, alert, normal mood/affect Laboratory Results Last 24 Hours Test 06/11/17 09:31 06/11/17 09:44 06/11/17 09:48 06/11/17 14:31 Urine Color YELLOW Urine Appearance CLEAR Urine pH 6.0 Urine Specific [place] 1.014 Urine Protein NEG Urine Glucose (UA) NEG Urine Ketones NEG Urine Occult Blood NEG Urine Nitrite NEG Urine Bilirubin NEG Urine Urobilinogen NEG Urine Leukocyte Esterase NEG Urine WBC (Auto) 0 /hpf Urine RBC (Auto) 0-4 /hpf Urine Hyaline Casts (Auto) 1-5 /lpf Urine Epithelial Cells (Auto) 0-5 /lpf Urine Bacteria (Auto) NEG White Blood Count 13.62 K/uL Red Blood Count 2.96 M/uL Hemoglobin 8.5 g/dL Hematocrit 27.9 % Mean Corpuscular Volume 94.3 fL Mean Corpuscular Hemoglobin 28.7 pg Mean Corpuscular Hemoglobin Concent 30.5 g/dl Platelet Count 312 K/uL Mean Platelet Volume 9.5 fL Neutrophils (%) (Auto) 88.9 % Lymphocytes (%) (Auto) 6.3 % Monocytes (%) (Auto) 4.1 % Eosinophils (%) (Auto) 0.1 % Basophils (%) (Auto) 0.1 % Neutrophils # (Auto) 12.11 K/uL Lymphocytes # (Auto) 0.86 K/uL Monocytes # (Auto) 0.56 K/uL Eosinophils # (Auto) 0.01 K/uL Basophils # (Auto) 0.01 K/uL RDW Standard Deviation 51.7 fL RDW Coefficient of Variation 14.9 % Immature Granulocyte % (Auto) 0.5 % Immature Granulocyte # (Auto) 0.07 K/uL Ovalocytes 1+ Erythrocyte Sedimentation Rate 64 mm/hr Prothrombin Time 11.7 SECONDS Prothromb Time International Ratio 1.1 Activated Partial Thromboplast Time 25.1 SECONDS Partial Thromboplastin Ratio 1.0 Venous Blood pH 7.41 Venous Blood Partial Pressure CO2 59 mmHg Venous Blood Partial Pressure O2 43 mmHg Venous Blood HCO3 37 mmol/L Venous Blood Oxygen Saturation 74.4 % Venous Blood Base Excess 10.4 mEq/L Sodium Level 137 mmol/L Potassium Level 3.9 mmol/L Chloride Level 97 mmol/L Carbon Dioxide Level 36 mmol/L Anion Gap 4.0 mmol/L Blood Urea Nitrogen 23 mg/dl Creatinine 0.63 mg/dl Est Creatinine Clear Calc Drug Dose 63.5 ml/min Estimated GFR () 110.9 Estimated GFR (Non- 95.7 BUN/Creatinine Ratio 36.5 Random Glucose 131 mg/dl Calcium Level 9.1 mg/dl Magnesium Level 1.9 mg/dl Total Bilirubin 0.3 mg/dl Aspartate Amino Transf (AST/SGOT) 25 U/L Alanine Aminotransferase (ALT/SGPT) 13 U/L Alkaline Phosphatase 75 U/L Total Creatine Kinase 74 U/L Creatine Kinase MB 2.8 ng/ml Creatine Kinase MB Ratio 3.8 Troponin I 0.201 ng/ml C-Reactive Protein 7.34 mg/dl Pro-B-Type Natriuretic Peptide 68892 pg/ml Total Protein 6.4 gm/dl Albumin 2.6 gm/dl Globulin 3.7 gm/dl Albumin/Globulin Ratio 0.7 Bedside Lactic Acid Venous 1.27 mmol/L Procalcitonin 0.22 ng/ml Test 06/11/17 17:31 06/12/17 00:42 Total Creatine Kinase 62 U/L 44 U/L Creatine Kinase MB 2.4 ng/ml 1.3 ng/ml Creatine Kinase MB Ratio 3.9 3.0 Troponin I 0.200 ng/ml 0.169 ng/ml White Blood Count 7.66 K/uL Red Blood Count 2.42 M/uL Hemoglobin 7.2 g/dL Hematocrit 22.4 % Mean Corpuscular Volume 92.6 fL Mean Corpuscular Hemoglobin 29.8 pg Mean Corpuscular Hemoglobin Concent 32.1 g/dl RDW Standard Deviation 51.1 fL RDW Coefficient of Variation 15.0 % Platelet Count 259 K/uL Mean Platelet Volume 9.5 fL Sodium Level 138 mmol/L Potassium Level 3.4 mmol/L Chloride Level 95 mmol/L Carbon Dioxide Level 39 mmol/L Anion Gap 4.0 mmol/L Blood Urea Nitrogen 19 mg/dl Creatinine 0.65 mg/dl Est Creatinine Clear Calc Drug Dose 61.5 ml/min Estimated GFR () 109.5 Estimated GFR (Non- 94.5 BUN/Creatinine Ratio 29.5 Random Glucose 130 mg/dl Calcium Level 8.5 mg/dl Magnesium Level 1.9 mg/dl Thyroid Stimulating Hormone (TSH) 0.789 uIu/ml Assessment and Plan This is a 77 year old male with a complex medical history, including CAD s/p stent in , severe COPD and chronic respiratory failure on 2L O2 continuously , severe ischemic cardiomyopathy with EF of ~ 20%, traumatic L lower leg amputation presents with worsening shortness of breath. Anemia rule out blood loss, could be from fluid overload must rule out bleeding from surgical site previous bleeding from femoral artery will obtain CTA abdomen/pelvis if any active bleeding, will likely need to be transferred out of the hospital if no active bleeding, will give pRBCs and recheck H/H four hours post- transfusion Acute COPD exacerbation Acute on Chronic Respiratory Failure 06/12 continue Solu-medrol, Zosyn, nebs 06/11 patient with severe emphysema on chronically on 2L of O2 continuously presents with worsening shortness of breath, wheezing, with improvement of Solu- medrol and nebulizers this is likely an exacerbation of his COPD will start Solu-medrol 40mg q8 Levaquin nebulizers around the clock pulmonary consult for further input - patient was to see pulmonology as outpatient for possible CT scan continue O2 as needed and wean back to 2L when breathing improves Ischemic Cardiomyopathy Acute on Chronic Systolic CHF, with EF ~ 20% patient is on dual diuretic therapy (Lasix + Aldactone) he refused ICD placement in the past CXR suggests fluid/edema BNP elevated took his Lasix and Aldactone this morning will give another 20mg of Lasix via IV; monitor blood pressure currently on Amiodarone 400mg BID until June 24, and then 200mg daily cardiology consulted Elevated Troponin in the setting of CAD denies any chest pain elevated troponin likely from ischemia from COPD as well as CHF exacerbation we will monitor in tele trend cardiac enzymes echo done in February 2017; will consult cardiology for further input stent placed in 1996 Plavix recently stopped at [facility]; cont. Toprol XL 12.5mg BID, and high intensity statin will stop aspirin due to anemia DVT ppx SCDs DNR, is okay with a trial of intubation
--- NOTE | 2017-06-12 09:33 | Pulmonology Progress Note ---
Pulmonary Progress Note Date of Service Jun 12, 2017. Attending Dr. Cuellar Subjective Patient seen and examined this morning. He is resting, but easily arousal. He has no complaints and states that his breathing is fine. Objective O/E: VS reviewed. Hemodynamically stable, not tachycardic CVS: S1, S2, RRR Lungs: diminished breath sound bilaterally, decreased air entry at bases Abd: soft/NT/ND.BS+, hernia, Ext: expanding firm hematoma of left thigh, left AKA amputation, right lower extremity pulses +b/l Labs reviewed. Hgb drop from 8.5-->9.2. K 3.4, Cr. 0.65. Troponin 0.200-->0.169 Assessment & Plan Acute on chronic hypoxic hypercapnic failure Severe COPD (FEV1 unknown) Oxygen dependence LLL pneumonia Tobacco use disorder Decompensated systolic CHF NSTEMI Malnutrition Failure to thrive Anemia Expanding L thigh hematoma Patient has multiple comorbidities. He presents with acute on chronic hypoxic respiratory failure that is multifactorial nature. He was recently hospitalized for surgical procedure for bleeding femoral artery that has been stabilized. FEV1 is currently unknown at this point, but he does have the body habitus of someone with severe COPD. He has LLE amputation secondary to PVD, but is able to transfer independently when he is in his normal state. Dyspnea now limits him from doing this. He is an active tobacco smoker smoking 1ppd, which is also contributing to his progressive decline. His BNP is elevated and CXR appears to be overloaded, most likely representing decompensated systolic CHF. Troponin are also elevated which may be secondary to overall myocardial stretch. Cardiology is on board and optimizing medications.He has been offered AICD in the past, but declined. Ideally, he should be aggressively diuresed and kept in negative balance as his kidney function tolerates. From a respiratory standpoint, Continue with supplemental oxygen to maintain SaO2 88-92%. If he should decompensate further I would place him on BiPAP to assist with the work of breathing and to decrease preload. I spoke to him and son at length about goals of care. He would like a trial of intubation, if his respiratory failure is reversible within one week, but does not want life prolonging mechanical ventilation. He does is a DNR. This should be changed in the EMR. I offered him thoracentesis if needed, but he also declined this therapy. Continue with nebulizer treatments q6h, continue with empiric empiric abx. If treating for pneumonia this would be considered HCAP and antibiotics should be broadened. Send a sputum culture. Continue with corticosteroids. Continue with Spiriva, I would hold Advair until discharge. Encourage flutter valve for pulmonary toilet. Obtain CTA to rule of PE and evaluate LLL parenchyma as patient is a coagulopath and is but is also at increased risk for bleeding. He has a drop in Hgb today with increased diameter of left femoral hematoma. Recommend CT Abd/Pelvis with contrast to evaluate for hemorrhage. Discussed case with Dr. Gilbert and he has ordered for blood transfusion. Obtain a speech and swallow evaluation as he complains of dysphagia. Consider nutrition consult and protein supplementation for decreased PO intake and failure to thrive. Provide nicotine patch for tobacco use disorder. Data Medications: Current Inpatient Medications Medications (Trade) Dose Ordered Sig/Linda Route Start Time Stop Time Status Last Admin Dose Admin Ipratropium [place] (Atrovent 0.02% 0.5MG/2.5ML Neb) 0.5 mg Q8R INH 06/11/17 16:00 07/11/17 15:59 06/12/17 07:11 0.5 MG Levalbuterol (Xopenex 0.63 Mg/ 3 Ml Neb) 0.63 mg Q6R INH 06/11/17 15:00 07/11/17 14:59 06/12/17 07:11 0.63 MG Methylprednisolone Sodium Succinate 40 mg/Syringe 0.64 ml @ 1.5 mls/min Q8 IV 06/11/17 14:00 07/11/17 13:59 06/12/17 05:42 1.5 MLS/MIN Amiodarone HCl (Cordarone Tab) 400 mg BID PO 06/11/17 21:00 06/24/17 23:59 06/12/17 07:52 400 MG Atorvastatin Calcium (Lipitor Tab) 80 mg HS PO 06/11/17 21:00 07/11/17 20:59 06/11/17 22:01 80 MG Docusate Sodium (coLACE CAP) 100 mg DAILY PO 06/12/17 09:00 07/12/17 08:59 06/12/17 07:52 100 MG Ferrous Sulfate (Feosol Tab) 325 mg DAILY PO 06/12/17 09:00 07/12/17 08:59 06/12/17 07:51 325 MG Finasteride (Proscar Tab) 5 mg QAM PO 06/12/17 09:00 07/12/17 08:59 06/12/17 07:51 5 MG Salmeterol Xinafoate/ Fluticasone (Advair Diskus 250/50 Inh) 1 puff Q12 INH 06/11/17 21:00 07/11/17 20:59 06/12/17 07:48 1 PUFF Fluticasone Propionate (Flonase Nasal [place]) 2 sprays DAILY PRN DARREN 06/11/17 11:30 07/11/17 11:29 Gabapentin (Neurontin Cap) 100 mg Q8 PO 06/11/17 14:00 07/11/17 13:59 06/12/17 05:43 100 MG Magnesium Oxide (Mag-Ox Tab) 400 mg QAM PO 06/12/17 09:00 07/12/17 08:59 06/12/17 07:51 400 MG Metoprolol Succinate (Toprol Xl Tab) 12.5 mg BID PO 06/11/17 21:00 07/11/17 20:59 06/12/17 07:50 12.5 MG Nitroglycerin (Nitrostat Tab) 0.4 mg UD PRN SL 06/11/17 11:30 07/11/17 11:29 Potassium Chloride (Klor-Con Tab) 20 meq DAILY PO 06/12/17 09:00 07/12/17 08:59 06/12/17 07:50 20 MEQ Spironolactone (Aldactone Tab) 25 mg DAILY PO 06/12/17 09:00 07/12/17 08:59 06/12/17 07:49 25 MG Tamsulosin HCl (Flomax Cap) 0.4 mg BID PO 06/11/17 21:00 07/11/17 20:59 06/12/17 07:52 0.4 MG Tiotropium [place] (Spiriva Handihaler Inhaler) 1 puff DAILY INH 06/12/17 09:00 07/12/17 08:59 06/12/17 07:48 1 PUFF Pantoprazole Sodium (Protonix Tab) 40 mg QAM PO 06/12/17 09:00 07/12/17 08:59 06/12/17 07:51 40 MG Acetaminophen (Tylenol Tab) 650 mg Q6 PRN PO 06/11/17 12:45 07/11/17 12:44 Amiodarone HCl (Cordarone Tab) 200 mg DAILY PO 06/25/17 09:00 07/25/17 08:59 Piperacillin Sod/ Tazobactam Sod 3.375 gm/Dextrose 115 ml @ 28.75 mls/ hr Q8H IV 06/11/17 22:00 06/18/17 21:59 06/12/17 05:42 28.75 MLS/HR Piperacillin Sod/ Tazobactam Sod (Consult) 1 ea UD PRN N/A 06/11/17 13:15 07/11/17 13:14 Furosemide 20 mg/ Syringe 2 ml @ 4 mls/min BID IV 06/11/17 23:00 07/11/17 22:59 06/12/17 07:49 4 MLS/MIN Lorazepam (Ativan Tab) 0.5 mg TID PRN PO 06/11/17 18:00 07/11/17 17:59 06/12/17 05:48 0.5 MG Potassium Chloride 10 meq/ Prmx 100 ml @ 100 mls/hr Q1H IV 06/12/17 08:45 06/12/17 10:44 Ioversol (Optiray 320) 125 ml UD PRN IV 06/12/17 09:15 06/16/17 09:14 UNV Vital Signs: Date Time Temp Pulse Resp B/P (MAP) Pulse Ox O2 Delivery O2 Flow Rate FiO2 06/12/17 07:53 36.5 78 17 109/52 (71) 93 Nasal Cannula 4.0 06/12/17 07:12 70 16 94 4.0 06/12/17 04:00 79 16 117/60 (79) 94 Nasal Cannula 4.0 06/12/17 04:00 Nasal Cannula 06/12/17 02:05 70 16 98 4.0 06/12/17 00:10 Nasal Cannula 06/11/17 23:30 36.7 76 20 109/52 (71) 98 Nasal Cannula 4.0 06/11/17 20:00 Nasal Cannula 06/11/17 19:50 36.8 82 20 112/60 (77) 99 Nasal Cannula 4.0 06/11/17 19:41 86 16 99 4.0 06/11/17 16:00 96 Nasal Cannula 4.0 06/11/17 15:32 36.4 81 18 107/61 (76) 96 Nasal Cannula 4.0 06/11/17 14:30 76 15 97 4.0 06/11/17 12:56 36.8 81 17 113/61 94 Nasal Cannula 4.0 06/11/17 10:59 86 20 113/61 94 Nasal Cannula 4.0 06/11/17 10:21 87 24 113/61 92 Nasal Cannula 4.0 06/11/17 10:01 90 22 113/61 94 Nasal Cannula 4.0 06/11/17 09:35 93 Nasal Cannula 4.0 06/11/17 09:35 91 06/11/17 09:27 95 Nasal Cannula 4.0 06/11/17 09:23 95 Nasal Cannula 4.0 06/11/17 09:21 103 25 164/91 95 Nasal Cannula 4.0 06/11/17 09:15 37.0 110 24 164/91 95 Nasal Cannula 4.0 Laboratory Results: Last 24 Hours Test 06/11/17 09:31 06/11/17 09:44 06/11/17 09:48 06/11/17 14:31 Urine Color YELLOW Urine Appearance CLEAR Urine pH 6.0 Urine Specific [place] 1.014 Urine Protein NEG Urine Glucose (UA) NEG Urine Ketones NEG Urine Occult Blood NEG Urine Nitrite NEG Urine Bilirubin NEG Urine Urobilinogen NEG Urine Leukocyte Esterase NEG Urine WBC (Auto) 0 /hpf Urine RBC (Auto) 0-4 /hpf Urine Hyaline Casts (Auto) 1-5 /lpf Urine Epithelial Cells (Auto) 0-5 /lpf Urine Bacteria (Auto) NEG White Blood Count 13.62 K/uL Red Blood Count 2.96 M/uL Hemoglobin 8.5 g/dL Hematocrit 27.9 % Mean Corpuscular Volume 94.3 fL Mean Corpuscular Hemoglobin 28.7 pg Mean Corpuscular Hemoglobin Concent 30.5 g/dl Platelet Count 312 K/uL Mean Platelet Volume 9.5 fL Neutrophils (%) (Auto) 88.9 % Lymphocytes (%) (Auto) 6.3 % Monocytes (%) (Auto) 4.1 % Eosinophils (%) (Auto) 0.1 % Basophils (%) (Auto) 0.1 % Neutrophils # (Auto) 12.11 K/uL Lymphocytes # (Auto) 0.86 K/uL Monocytes # (Auto) 0.56 K/uL Eosinophils # (Auto) 0.01 K/uL Basophils # (Auto) 0.01 K/uL RDW Standard Deviation 51.7 fL RDW Coefficient of Variation 14.9 % Immature Granulocyte % (Auto) 0.5 % Immature Granulocyte # (Auto) 0.07 K/uL Ovalocytes 1+ Erythrocyte Sedimentation Rate 64 mm/hr Prothrombin Time 11.7 SECONDS Prothromb Time International Ratio 1.1 Activated Partial Thromboplast Time 25.1 SECONDS Partial Thromboplastin Ratio 1.0 Venous Blood pH 7.41 Venous Blood Partial Pressure CO2 59 mmHg Venous Blood Partial Pressure O2 43 mmHg Venous Blood HCO3 37 mmol/L Venous Blood Oxygen Saturation 74.4 % Venous Blood Base Excess 10.4 mEq/L Sodium Level 137 mmol/L Potassium Level 3.9 mmol/L Chloride Level 97 mmol/L Carbon Dioxide Level 36 mmol/L Anion Gap 4.0 mmol/L Blood Urea Nitrogen 23 mg/dl Creatinine 0.63 mg/dl Est Creatinine Clear Calc Drug Dose 63.5 ml/min Estimated GFR () 110.9 Estimated GFR (Non- 95.7 BUN/Creatinine Ratio 36.5 Random Glucose 131 mg/dl Calcium Level 9.1 mg/dl Magnesium Level 1.9 mg/dl Total Bilirubin 0.3 mg/dl Aspartate Amino Transf (AST/SGOT) 25 U/L Alanine Aminotransferase (ALT/SGPT) 13 U/L Alkaline Phosphatase 75 U/L Total Creatine Kinase 74 U/L Creatine Kinase MB 2.8 ng/ml Creatine Kinase MB Ratio 3.8 Troponin I 0.201 ng/ml C-Reactive Protein 7.34 mg/dl Pro-B-Type Natriuretic Peptide 66696 pg/ml Total Protein 6.4 gm/dl Albumin 2.6 gm/dl Globulin 3.7 gm/dl Albumin/Globulin Ratio 0.7 Bedside Lactic Acid Venous 1.27 mmol/L Procalcitonin 0.22 ng/ml Test 06/11/17 17:31 06/12/17 00:42 Total Creatine Kinase 62 U/L 44 U/L Creatine Kinase MB 2.4 ng/ml 1.3 ng/ml Creatine Kinase MB Ratio 3.9 3.0 Troponin I 0.200 ng/ml 0.169 ng/ml White Blood Count 7.66 K/uL Red Blood Count 2.42 M/uL Hemoglobin 7.2 g/dL Hematocrit 22.4 % Mean Corpuscular Volume 92.6 fL Mean Corpuscular Hemoglobin 29.8 pg Mean Corpuscular Hemoglobin Concent 32.1 g/dl RDW Standard Deviation 51.1 fL RDW Coefficient of Variation 15.0 % Platelet Count 259 K/uL Mean Platelet Volume 9.5 fL Sodium Level 138 mmol/L Potassium Level 3.4 mmol/L Chloride Level 95 mmol/L Carbon Dioxide Level 39 mmol/L Anion Gap 4.0 mmol/L Blood Urea Nitrogen 19 mg/dl Creatinine 0.65 mg/dl Est Creatinine Clear Calc Drug Dose 61.5 ml/min Estimated GFR () 109.5 Estimated GFR (Non- 94.5 BUN/Creatinine Ratio 29.5 Random Glucose 130 mg/dl Calcium Level 8.5 mg/dl Magnesium Level 1.9 mg/dl Thyroid Stimulating Hormone (TSH) 0.789 uIu/ml
--- NOTE | 2017-06-12 10:01 | DIAGNOSTIC IMAGING REPORT ---
(CHEST) THORAX WITH, ANGIO ABD/PELVIS WITH CONTRAST CLINICAL HISTORY: 77 years-old Male presenting with sob, copd, chf. TECHNIQUE: Multidetector CT imaging of the chest was performed after the administration of intravenous contrast. Multidetector CT angiography of the abdomen and pelvis was also performed after the administration of intravenous contrast. IV contrast: 95 mL of Optiray 320. A dose lowering technique was used consistent with the principles of ALARA (as low as reasonably achievable). COMPARISON: Noncontrast CT of the abdomen and pelvis from 01/26/2016 and CTA chest from 02/01/2015. CT DOSE (mGy.cm): The estimated cumulative dose is 525.37 mGy.cm. FINDINGS: [employer] topogram: Unremarkable. CT CHEST: On soft tissue windows, normal thyroid and thoracic inlet. No axillary, supraclavicular, hilar, or mediastinal lymphadenopathy. Atherosclerosis of the thoracic aorta, which demonstrates a four-vessel arch. Focal ectasia of the descending thoracic aorta at the level of the left pulmonary artery. At this level the aorta measures up to 4 cm in transverse dimension in comparison to the normal distal diameter of 3.4 cm. No evidence of dissection. Enlargement of the left ventricle. Aortic valve, mitral annular, and coronary artery calcification. Small pericardial effusion. Small to moderate right and trace left pleural effusions. Small hypodensity in the right hepatic lobe indeterminate but likely hepatic cysts or hamartoma. On lung windows, multiple foci of gas along the posterior aspect of the left lower lobe, which may either represent paraseptal emphysema or tiny locules of pneumothorax. Severe emphysema noted. Dependent opacities in the right lower lobe likely passive atelectasis. However, groundglass opacities more diffusely and dependent portions of the left lower lobe and inferior lingula. Segmental bronchial obstruction in the right lower lobe, possibly secondary to mucous plugging. On bone windows, normal osseous structures. CTA abdomen and pelvis: Aneurysmal dilatation and irregularity of the infrarenal abdominal aorta, which demonstrates calcified and noncalcified atherosclerotic plaque narrowing its lumen. Minimal luminal diameter measures 9 mm (series 2 image 42). Aneurysmal dilatation maximally measures 3.8 cm in transverse dimension. Pseudoaneurysm arising from the posterior medial aspect of the right common iliac artery, which measures 2.4 cm (series 2 image 53). An aorto femoral graft is evident on the right, which is patent. The left common iliac artery is occluded and a large bilobed hematoma is noted in the left inguinal region. The more medial portion of the hematoma measures up to 5.6 cm maximal axial dimension and the more lateral component up to 7.5 cm. There is also an intramuscular hematoma within the left psoas muscle measuring up to 4.9 cm in maximal axial dimension. Atherosclerotic plaque narrows the lumen of the celiac axis. Conventional hepatic arterial anatomy. Patent origin of the superior mesenteric artery. Atherosclerotic plaque narrows the bilateral renal arteries. Allowing for the arterial phase of contrast, liver, pancreas, spleen, adrenal, and kidneys glands normal. Small gallstone noted at the gallbladder neck. A Cuellar catheter and completely decompresses the urinary bladder, which also contains gas. Enlarged prostate. No bowel obstruction although moderate stool burden noted. Enlarged left aortic lymph nodes, which are subcentimeter in the short axis. Small pelvic fluid, which is low-density. Surgical scar in the midline upper abdomen. Degenerative changes of the spine. IMPRESSION: 1. Large bilobed hematoma in the left inguinal region with intramuscular hematoma within the left psoas muscle. 2. 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 3. Cardiomegaly. 4. Small to moderate right and trace left pleural effusions. 5. Passive atelectasis in the right lower lobe. 6. Groundglass opacities in the left lower lobe and inferior lingula raise concern for an infectious process superimposed on emphysema. 7. Infrarenal abdominal aortic aneurysm measuring up to 3.8 cm in transverse dimension, unchanged since 2016. 8. Patent right aortofemoral bypass graft. 9. 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 10. Enlarged left paraaortic lymph nodes, nonspecific and possibly reactive. The report will be called/faxed according to standard departmental protocol. Electronically signed by: Puma Pisano M.D. 06/12/2017 9:59 AM Dictated Date/Time: 06/12/2017 9:41 AM
[2017-06-12] MEDS ORDERED: LEVOFLOXACIN / D5W 500 MG in PREMIXED IN D5W 100 ML IV SCH (11:30)
[2017-06-12] MEDS: POTASSIUM CHLR 10 MEQ / WTR 10 MEQ in PREMIXED WATER 100 ML IV SCH ×2 (13:00→14:07)
--- NOTE | 2017-06-12 13:40 | PROGRESS NOTE ---
DATE: 06/12/2017 FOLLOWUP VISIT SUBJECTIVE: The patient is a 77-year-old male with a history of complex medical problems. 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 He is on continuous oxygen at home. He has ischemic cardiomyopathy with an estimated left ventricular ejection fraction of 20-25%. He has moderate aortic stenosis. He also has peripheral vascular disease which has been the origin of his most recent problems. He is status post amputation of left lower extremity and I believe has an axillofem graft which has been leaking and causing a seroma. He has been to [place] twice. First to have aroma evacuated and the second one was because he has a slow leak from his graft. They were able to clot off the graft and send him home, but then he began to have progressive shortness of breath and overall failure to thrive at home. He has been admitted to the hospital and is once again leaking from his graft. He is receiving some blood this morning due to anemia. The nurses have marked the progression of the subcutaneous hematoma. A surgical consult is pending. OBJECTIVE: GENERAL: The patient is stable and has no complaints. VITAL SIGNS: Blood pressure is 100/60, pulse is regular at 73. He is afebrile. HEENT: He wears corrective lenses. Mucous membranes are moist. NECK: The neck veins are flat. Carotids have good upstrokes bilaterally without bruits. CARDIOVASCULAR: Heart has a regular rhythm. There is a systolic murmur along the left sternal border. RESPIRATORY: Breath sounds are diminished bilaterally. ABDOMEN: Soft, nontender, without organomegaly. EXTREMITIES: The patient has a hard area in the left groin. NEUROLOGIC: Grossly intact. SKIN: Warm to touch. LYMPH NODES: Negative to palpation. LABORATORY DATA: Hemoglobin is 7.2, potassium is 3.4, creatinine 0.65. IMPRESSION: 1. Severe chronic obstructive lung disease with exacerbation. 2. Continued cigarette smoking. 3. Peripheral vascular disease with left above the knee amputation with recent drainage of a seroma and leaking bypass graft. 4. Profound anemia. 5. Ischemic cardiomyopathy with severe left ventricular dysfunction and an estimated left ventricular ejection fraction of 20%. RECOMMENDATIONS: From a cardiac standpoint, the patient is stable. We are awaiting surgical consultation. Hopefully, the leakage from the graft in the left groin will slow and tamponade itself. We will wait to see recommendations from surgery. DG
[2017-06-12 13:41] LABS: HEMATOCRIT 28.1 % (42-52)
[2017-06-12] MEDS ORDERED: FUROSEMIDE INJ 20 MG in SYRINGE 0 ML IV ONE (14:15)
--- NOTE | 2017-06-12 15:00 | Medical Consult ---
Consultation Date of Consultation: Jun 12, 2017. Attending Physician: Jorge Alberto Gilbert DO Reason for Consultation: left groin and psoas hematoma History of Present Illness 77 year old male with multiple medical problems including ASCAD, CHF, and PVD admitted for respiratory issues and failure to thrive. He has a complex vascular surgical history. He has a history of aortobifemoral bypass that was complicated by either left groin pseudoaneurysm or seroma that was aspirated. He later developed an abscess which was treated by Dr. Baldwin. He had a left AKA at some point. His pseudoaneurysm or chronic seroma recurred, and he went to [place] for treatment. He underwent excision of sac and repair of graft with muscle flap rotation for coverage. He later developed bleeding with expanding hematoma which was treated by endovascular covered stent placement with LUE access. He was discharged from [place] with a fairly flat groin, but on the way home he developed respiratory symptoms and reported to ED. Treated with some improvement and sent home, but returned and was admitted. During his stay his left groin has become swollen and firm and his HCT has dropped. Per the nursing staff the thigh has also become swollen and the groin is slowly getting larger. A CTA showed large bilobed left inguinal and thigh hematoma with a psoas hematoma that appears to communicate. No blush or active bleeding noted. He is stable and is ordered for transfusion. Doesn't complain of much pain. Past Medical/Surgical History Medical Problems: (1) Anemia Status: Chronic (2) Dehydration Status: Acute (3) Diarrhea Status: Acute (4) Elevated troponin Status: Acute (5) Generalized weakness Status: Acute (6) Hip hematoma, left Status: Acute (7) Hypoxia Status: Acute (8) Near syncope Status: Acute (9) Oxygen dependent Status: Acute (10) Postoperative seroma Status: Acute (11) Tobacco abuse Status: Acute Family History Heart disease Hypertension Lung disease Social History Smoking Status: Current Every Day Smoker Drug Use: none Marital Status: single Housing Status: unknown Occupation Status: retired Allergies Coded Allergies: No Known Allergies (Verified , 06/04/17) Home Medications Active Reported Oxygen Gas 2 Liters NA PRN Spironolactone 25 Mg Tab 25 Mg PO DAILY Aspirin Chewable (Aspirin) 81 Mg Chew 81 Mg PO DAILY Amiodarone HCl 200 Mg Tab 400 Mg PO DAILY TAKE 400 MG PO BID FOR 14 DAYS, LAST DOSE WILL BE 06/24/2017, THEN START 200 MG DAILY STARTING 06/25/2017. Toprol-Xl (Metoprolol Succinate) 25 Mg Tabcr 12.5 Mg PO BID Rowena Nasal [place] (Saline) 0.65 % Spr 2 [place] DARREN UD PRN Ventolin Hfa (Albuterol) 200 Puffs/03979 Mcg Aers 2 Puffs INH Q6 PRN Lasix (Furosemide) 40 Mg Tab 40 Mg PO DAILY Flonase Allergy Relief (Fluticasone Propionate (Nasal)) 50 Mcg/Act Spr 2 Sprays DARREN DAILY PRN Colace (Docusate Sodium) 100 Mg Cap 100 Mg PO DAILY Prednisone 5 Mg Tab 5 Mg PO UD PRN Co Q10 (Coenzyme Q10) 50 Mg Cap 2 Cap PO QAM Duoneb (Ipratropium-Albuterol) 3 Ml Nebu 1 Treatment NEB Q6 PRN Spiriva Handihaler (Tiotropium [place]) 30 Puff/540 Mcg Aerp 1 Cap INH DAILY Gabapentin 100 Mg Cap 100 Mg PO Q8 Proscar (Finasteride) 5 Mg Tab 5 Mg PO QAM Prilosec (Omeprazole) 40 Mg Cap 40 Mg PO DAILY Tamsulosin HCl 0.4 Mg Cap 1 Cap PO BID Klor-Con (Potassium Chloride) 20 Meq Tabcr 20 Meq PO DAILY Nitrostat (Nitroglycerin) 0.4 Mg/1 Tab Subl 0.4 Mg SL UD PRN Mag-Ox (Magnesium Oxide) 400 Mg Tab 400 Mg PO QAM Tylenol (Acetaminophen) 325 Mg Tab 650 Mg PO Q6 PRN Lipitor (Atorvastatin Calcium) 80 Mg Tab 80 Mg PO HS Fe Tabs (Ferrous Sulfate) 325 Mg Tab 325 Mg PO QA Advair Diskus 250/50 60 Dose (Fluticasone Prop/Salmeterol) 1 Ea Aerp 1 Puff INH Q12H Current Inpatient Medications Current Inpatient Medications Medications (Trade) Dose Ordered Sig/Linda Route Start Time Stop Time Status Last Admin Dose Admin Ipratropium [place] (Atrovent 0.02% 0.5MG/2.5ML Neb) 0.5 mg Q8R INH 06/11/17 16:00 07/11/17 15:59 06/12/17 07:11 0.5 MG Levalbuterol (Xopenex 0.63 Mg/ 3 Ml Neb) 0.63 mg Q6R INH 06/11/17 15:00 07/11/17 14:59 06/12/17 14:13 0.63 MG Methylprednisolone Sodium Succinate 40 mg/Syringe 0.64 ml @ 1.5 mls/min Q8 IV 06/11/17 14:00 07/11/17 13:59 06/12/17 13:01 1.5 MLS/MIN Amiodarone HCl (Cordarone Tab) 400 mg BID PO 06/11/17 21:00 06/24/17 23:59 06/12/17 07:52 400 MG Atorvastatin Calcium (Lipitor Tab) 80 mg HS PO 06/11/17 21:00 07/11/17 20:59 06/11/17 22:01 80 MG Docusate Sodium (coLACE CAP) 100 mg DAILY PO 06/12/17 09:00 07/12/17 08:59 06/12/17 07:52 100 MG Ferrous Sulfate (Feosol Tab) 325 mg DAILY PO 06/12/17 09:00 07/12/17 08:59 06/12/17 07:51 325 MG Finasteride (Proscar Tab) 5 mg QAM PO 06/12/17 09:00 07/12/17 08:59 06/12/17 07:51 5 MG Salmeterol Xinafoate/ Fluticasone (Advair Diskus 250/50 Inh) 1 puff Q12 INH 06/11/17 21:00 07/11/17 20:59 06/12/17 07:48 1 PUFF Fluticasone Propionate (Flonase Nasal [place]) 2 sprays DAILY PRN DARREN 06/11/17 11:30 07/11/17 11:29 Gabapentin (Neurontin Cap) 100 mg Q8 PO 06/11/17 14:00 07/11/17 13:59 06/12/17 05:43 100 MG Magnesium Oxide (Mag-Ox Tab) 400 mg QAM PO 06/12/17 09:00 07/12/17 08:59 06/12/17 07:51 400 MG Metoprolol Succinate (Toprol Xl Tab) 12.5 mg BID PO 06/11/17 21:00 07/11/17 20:59 06/12/17 07:50 12.5 MG Nitroglycerin (Nitrostat Tab) 0.4 mg UD PRN SL 06/11/17 11:30 07/11/17 11:29 Potassium Chloride (Klor-Con Tab) 20 meq DAILY PO 06/12/17 09:00 07/12/17 08:59 06/12/17 07:50 20 MEQ Spironolactone (Aldactone Tab) 25 mg DAILY PO 06/12/17 09:00 07/12/17 08:59 06/12/17 07:49 25 MG Tamsulosin HCl (Flomax Cap) 0.4 mg BID PO 06/11/17 21:00 07/11/17 20:59 06/12/17 07:52 0.4 MG Tiotropium [place] (Spiriva Handihaler Inhaler) 1 puff DAILY INH 06/12/17 09:00 07/12/17 08:59 06/12/17 07:48 1 PUFF Pantoprazole Sodium (Protonix Tab) 40 mg QAM PO 06/12/17 09:00 07/12/17 08:59 06/12/17 07:51 40 MG Acetaminophen (Tylenol Tab) 650 mg Q6 PRN PO 06/11/17 12:45 07/11/17 12:44 Amiodarone HCl (Cordarone Tab) 200 mg DAILY PO 06/25/17 09:00 07/25/17 08:59 Piperacillin Sod/ Tazobactam Sod 3.375 gm/Dextrose 115 ml @ 28.75 mls/ hr Q8H IV 06/11/17 22:00 06/18/17 21:59 06/12/17 14:01 28.75 MLS/HR Piperacillin Sod/ Tazobactam Sod (Consult) 1 ea UD PRN N/A 06/11/17 13:15 07/11/17 13:14 Furosemide 20 mg/ Syringe 2 ml @ 4 mls/min BID IV 06/11/17 23:00 07/11/17 22:59 06/12/17 07:49 4 MLS/MIN Lorazepam (Ativan Tab) 0.5 mg TID PRN PO 06/11/17 18:00 07/11/17 17:59 06/12/17 05:48 0.5 MG Ioversol (Optiray 320) 125 ml UD PRN IV 06/12/17 09:15 06/16/17 09:14 Review of Systems Constitutional: No fever, No chills, No sweats, No weight loss, No weakness, No fatigue, No problem reported Eyes: No worsening of vision, No eye pain, No redness, No discharge, No diplopia, No problem reported ENT: No hearing loss, No unusual epistaxis, No nasal symptoms, No sore throat, No tinnitus, No dental problems, No trouble swallowing, No problem reported Respiratory: + cough, + shortness of breath, + dyspnea at rest Cardiovascular: No chest pain, No orthopnea, No PND, No edema, No claudication , No palpitations, No problem reported Abdomen: + problem reported (left groin swelling), No pain, No nausea, No vomiting, No diarrhea, No constipation, No GI bleeding Musculoskeletal: No joint pain, No muscle pain, No swelling, No calf pain, No problem reported Neurologic: No memory loss, No paralysis, No weakness, No numbness/tingling, No vertigo, No balance problems, No problem reported Psychiatric: No depression symptoms, No anhedonism, No anxiety, No insomnia, No substance abuse, No problem reported Endocrine: No fatigue, No excessive thirst, No excessive urination, No problem reported Hematologic / Lymphatic: No abnormal bleeding/bruising, No clotting problems, No swollen lymph nodes, No night sweats, No problem reported Integumentary: No rash, No itch, No new/changing skin lesions, No color change , No bleeding, No problem reported Allergic / Immunologic: No environmental allergies, No seasonal allergies, No pet sensitivities, No food allergies, No hives, No frequent infections, No poor healing, No prolonged convalescence, No problem reported Physical Exam Date Time Temp Pulse Resp B/P (MAP) Pulse Ox O2 Delivery O2 Flow Rate FiO2 06/12/17 14:14 73 14 97 Nasal Cannula 4.0 06/12/17 13:10 36.5 68 17 121/74 96 4.0 06/12/17 12:30 36.6 70 17 110/63 94 4.0 06/12/17 12:00 95 Nasal Cannula 4.0 06/12/17 11:30 36.4 74 16 101/54 96 4.0 06/12/17 10:29 36.6 73 17 106/54 96 4.0 06/12/17 09:59 36.6 71 16 109/55 97 4.0 06/12/17 09:33 36.4 75 16 123/61 95 4.0 06/12/17 08:00 93 Nasal Cannula 4.0 06/12/17 07:53 36.5 78 17 109/52 (71) 93 Nasal Cannula 4.0 06/12/17 07:12 70 16 94 4.0 06/12/17 04:00 79 16 117/60 (79) 94 Nasal Cannula 4.0 06/12/17 04:00 Nasal Cannula 06/12/17 02:05 70 16 98 4.0 06/12/17 00:10 Nasal Cannula 06/11/17 23:30 36.7 76 20 109/52 (71) 98 Nasal Cannula 4.0 06/11/17 20:00 Nasal Cannula 06/11/17 19:50 36.8 82 20 112/60 (77) 99 Nasal Cannula 4.0 06/11/17 19:41 86 16 99 4.0 06/11/17 16:00 96 Nasal Cannula 4.0 06/11/17 15:32 36.4 81 18 107/61 (76) 96 Nasal Cannula 4.0 General Appearance: no apparent distress, + cachetic Head: normocephalic, atraumatic Eyes: normal inspection, PERRL ENT: normal ENT inspection, hearing grossly normal Respiratory/Chest: chest non-tender, no respiratory distress, + crackles, + wheezing Cardiovascular: regular rate, rhythm, no JVD Abdomen/GI: non tender, soft, + pertinent finding (left groin with firm hematoma extending into left thigh. non pulsatile. 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 TECHNIQUE: Multidetector CT imaging of the chest was performed after the administration of intravenous contrast. Multidetector CT angiography of the abdomen and pelvis was also performed after the administration of intravenous contrast. IV contrast: 95 mL of Optiray 320. A dose lowering technique was used consistent with the principles of ALARA (as low as reasonably achievable). COMPARISON: Noncontrast CT of the abdomen and pelvis from 01/26/2016 and CTA chest from 02/01/2015. CT DOSE (mGy.cm): The estimated cumulative dose is 525.37 mGy.cm. FINDINGS: [employer] topogram: Unremarkable. CT CHEST: On soft tissue windows, normal thyroid and thoracic inlet. No axillary, supraclavicular, hilar, or mediastinal lymphadenopathy. Atherosclerosis of the thoracic aorta, which demonstrates a four-vessel arch. Focal ectasia of the descending thoracic aorta at the level of the left pulmonary artery. At this level the aorta measures up to 4 cm in transverse dimension in comparison to the normal distal diameter of 3.4 cm. No evidence of dissection. Enlargement of the left ventricle. Aortic valve, mitral annular, and coronary artery calcification. Small pericardial effusion. Small to moderate right and trace left pleural effusions. Small hypodensity in the right hepatic lobe indeterminate but likely hepatic cysts or hamartoma. On lung windows, multiple foci of gas along the posterior aspect of the left lower lobe, which may either represent paraseptal emphysema or tiny locules of pneumothorax. Severe emphysema noted. Dependent opacities in the right lower lobe likely passive atelectasis. However, groundglass opacities more diffusely and dependent portions of the left lower lobe and inferior lingula. Segmental bronchial obstruction in the right lower lobe, possibly secondary to mucous plugging. On bone windows, normal osseous structures. CTA abdomen and pelvis: Aneurysmal dilatation and irregularity of the infrarenal abdominal aorta, which demonstrates calcified and noncalcified atherosclerotic plaque narrowing its lumen. Minimal luminal diameter measures 9 mm (series 2 image 42). Aneurysmal dilatation maximally measures 3.8 cm in transverse dimension. Pseudoaneurysm arising from the posterior medial aspect of the right common iliac artery, which measures 2.4 cm (series 2 image 53). An aorto femoral graft is evident on the right, which is patent. The left common iliac artery is occluded and a large bilobed hematoma is noted in the left inguinal region. The more medial portion of the hematoma measures up to 5.6 cm maximal axial dimension and the more lateral component up to 7.5 cm. There is also an intramuscular hematoma within the left psoas muscle measuring up to 4.9 cm in maximal axial dimension. Atherosclerotic plaque narrows the lumen of the celiac axis. Conventional hepatic arterial anatomy. Patent origin of the superior mesenteric artery. Atherosclerotic plaque narrows the bilateral renal arteries. Allowing for the arterial phase of contrast, liver, pancreas, spleen, adrenal, and kidneys glands normal. Small gallstone noted at the gallbladder neck. A Cuellar catheter and completely decompresses the urinary bladder, which also contains gas. Enlarged prostate. No bowel obstruction although moderate stool burden noted. Enlarged left aortic lymph nodes, which are subcentimeter in the short axis. Small pelvic fluid, which is low-density. Surgical scar in the midline upper abdomen. Degenerative changes of the spine. IMPRESSION: 1. Large bilobed hematoma in the left inguinal region with intramuscular hematoma within the left psoas muscle. 2. 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 3. Cardiomegaly. 4. Small to moderate right and trace left pleural effusions. 5. Passive atelectasis in the right lower lobe. 6. Groundglass opacities in the left lower lobe and inferior lingula raise concern for an infectious process superimposed on emphysema. 7. Infrarenal abdominal aortic aneurysm measuring up to 3.8 cm in transverse dimension, unchanged since 2016. 8. Patent right aortofemoral bypass graft. 9. 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 10. Enlarged left paraaortic lymph nodes, nonspecific and possibly reactive. The report will be called/faxed according to standard departmental protocol. Last 24 Hours Test 06/11/17 17:31 06/12/17 00:42 06/12/17 13:23 Total Creatine Kinase 62 U/L 44 U/L Creatine Kinase MB 2.4 ng/ml 1.3 ng/ml Creatine Kinase MB Ratio 3.9 3.0 Troponin I 0.200 ng/ml 0.169 ng/ml White Blood Count 7.66 K/uL Red Blood Count 2.42 M/uL Hemoglobin 7.2 g/dL 9.3 g/dL Hematocrit 22.4 % 28.1 % Mean Corpuscular Volume 92.6 fL Mean Corpuscular Hemoglobin 29.8 pg Mean Corpuscular Hemoglobin Concent 32.1 g/dl RDW Standard Deviation 51.1 fL RDW Coefficient of Variation 15.0 % Platelet Count 259 K/uL Mean Platelet Volume 9.5 fL Sodium Level 138 mmol/L Potassium Level 3.4 mmol/L Chloride Level 95 mmol/L Carbon Dioxide Level 39 mmol/L Anion Gap 4.0 mmol/L Blood Urea Nitrogen 19 mg/dl Creatinine 0.65 mg/dl Est Creatinine Clear Calc Drug Dose 61.5 ml/min Estimated GFR () 109.5 Estimated GFR (Non- 94.5 BUN/Creatinine Ratio 29.5 Random Glucose 130 mg/dl Calcium Level 8.5 mg/dl Magnesium Level 1.9 mg/dl Thyroid Stimulating Hormone (TSH) 0.789 uIu/ml Assessment & Plan 77 year old male with multiple medical problems, history of aortobifem bypass complicated by left groin seroma with multiple procedures, most recently excision seroma cavity with muscular flap complicated by bleeding treated with endovascular stent, now with expanding left groin hematoma extending into thigh and psoas muscle. Plan recommend urgent vascular surgery consult or transfer back to [facility] or to tertiary facility for further management may place 10 lb sand bag over left groin to attempt tamponade hemotoma no anticoagulation General Surgery will sign off, available for emergent issues or questions recommendations relayed to hospitalist service over phone Avtar Elena DO
[2017-06-12] MEDS: ACETAMINOPHEN 325 MG TAB PO PRN (16:31)
--- NOTE | 2017-06-12 17:22 | Progress Note ---
Progress Note Date of Service Jun 12, 2017. Progress Note Spoke with the son regarding the L thigh/inguinal/psoas hematoma. Son states that the vascular surgeon in [place] stated that a further surgery should not be performed. Son and patient do not believe another surgery should take place They would like conservative measures; they are okay with blood transfusions PRN Continue Solu-medrol, antibiotics, nebulizers, Lasix PRN for breathing (COPD and CHF) Code status: DNR
[2017-06-12] MEDS: TRAMADOL HCL 50 MG TAB PO PRN (18:19)
[2017-06-12] MEDS: BOOST PLUS VANILLA PO SCH ×2 (21:00)
[2017-06-12] MEDS: ATORVASTATIN 40 MG TAB PO SCH (21:35)
[2017-06-13] VITALS (11 sets, daily range): BP systolic 103–113; BP diastolic 8–67; PULSE 62–76; TEMP 36.4–36.7; O2SAT 91–99
[2017-06-13] MEDS: IPRATROPIUM BROMIDE NEB SOLN 0.02% 2.5 ML VIAL INH SCH ×3 (01:47→19:28)
[2017-06-13] MEDS: LEVALBUTEROL 0.63MG/3 ML NEB INH SCH ×4 (01:47→19:28)
[2017-06-13] MEDS: METHYLPREDNISOLONE IV 40 MG in SYRINGE 0 ML IV SCH ×3 (06:01→21:00)
[2017-06-13] MEDS: GABAPENTIN 100 MG CAP PO SCH ×3 (06:01→21:22)
[2017-06-13] MEDS: PIPERACILL/TAZOBAC IV 3.375 GM in DEXTROSE 5% 100ML 100 ML IV SCH ×3 (06:02→21:19)
[2017-06-13] MEDS: PANTOprazole SOD 40 MG TAB PO SCH (08:09)
[2017-06-13] MEDS: DOCUSATE SODIUM 100 MG CAP PO SCH (08:10)
[2017-06-13] MEDS: AMIODARONE 200 MG TAB PO SCH ×2 (08:10→21:08)
[2017-06-13] MEDS: POTASSIUM CHLORIDE 20 MEQ TABCR PO SCH (08:11)
[2017-06-13] MEDS: MAGNESIUM OXIDE 400 MG TAB PO SCH (08:12)
[2017-06-13] MEDS: TAMSULOSIN HCL 0.4 MG CAP PO SCH ×2 (08:12→21:11)
[2017-06-13] MEDS: FINASTERIDE 5 MG TAB PO SCH (08:13)
[2017-06-13] MEDS: SPIRONOLACTONE 25 MG TAB PO SCH (08:13)
[2017-06-13] MEDS: FUROSEMIDE INJ 20 MG in SYRINGE 0 ML IV SCH ×2 (08:14→21:09)
[2017-06-13] MEDS: FERROUS SULFATE 325 MG TAB PO SCH (08:15)
[2017-06-13] MEDS: FLUTICASONE/SALMETEROL 250/50 (ADVAIR) 14 PUFF/1 INHALER INH SCH ×2 (08:17→21:11)
[2017-06-13] MEDS: TIOTROPIUM BROMIDE 5 PUFF/90 MCG INH INH SCH (08:18)
[2017-06-13] MEDS: BOOST PLUS VANILLA PO SCH ×6 (08:40→21:00)
[2017-06-13] MEDS: METOPROLOL SUCC 25MG EXT REL TAB PO SCH ×2 (08:41→21:10)
--- NOTE | 2017-06-13 10:27 | Surgery Consultation ---
Consultation Date of Service Jun 13, 2017. Chief Complaint L groin hematoma History of Present Illness The patient is a 77 year old male with multiple medical problems, with hx of aortobifemoral bypass performed in 2009, known to Dr Baldwin for L groin seroma which has recurred despite being drained multiple times in office by general surgery and even drained in OR during exploration to eval L limb of graft by Dr Baldwin in 2015. Cultures done at that time demonstrated no growth, however, pt was kept on abx for a period of time d/t purulent material drained from site. Apparently, pt went to vascular surgeon at [facility] recently and underwent removal of seroma sac with flap coverage. Pt states they also placed a covered stent to stop bleeding d/t hematoma. On his way home from [place], pt became SOB and came to [facility] for eval. Pt's L groin hematoma noted on CT scan, and pt anemic. Pt himself states feeling improved since arrival. Denies BERNARD, fever, chills, chest pain, SOB presently, ABD pain, N/V, other complaints. CT scan demonstrates L groin hematoma/seroma, no blush with contrast. Otherwise , similar to previous studies. Vitals Vital Signs Past 12 Hours Date Time Temp Pulse Resp B/P (MAP) Pulse Ox O2 Delivery O2 Flow Rate FiO2 06/13/17 09:39 Nasal Cannula 4.0 06/13/17 08:00 Room Air 06/13/17 07:49 36.5 65 20 106/58 (74) 92 Nasal Cannula 4.0 06/13/17 07:41 36.4 64 16 105/59 (74) 92 Nasal Cannula 4.0 06/13/17 07:09 65 16 91 Nasal Cannula 4.0 06/13/17 04:00 Nasal Cannula 4.0 06/13/17 03:42 36.5 62 18 107/53 (71) 91 Nasal Cannula 4.0 06/13/17 01:53 66 16 93 Nasal Cannula 4.0 06/13/17 00:02 Nasal Cannula 4.0 06/13/17 00:00 36.4 65 20 105/56 (72) 92 Nasal Cannula 4.0 Allergies Coded Allergies: No Known Allergies (Verified , 06/04/17) Home Medications Scheduled Amiodarone HCl (Amiodarone HCl), 400 MG PO DAILY Aspirin (Aspirin Chewable), 81 MG PO DAILY Atorvastatin (Lipitor), 80 MG PO HS Coenzyme Q10 (Ubidecarenone) (Co Q10), 2 CAP PO QAM Docusate Sodium (Colace), 100 MG PO DAILY Ferrous Sulfate (Fe Tabs), 325 MG PO QA Finasteride (Proscar), 5 MG PO QAM Fluticasone Prop/Salmeterol (Advair Diskus 250/50 60 Dose), 1 PUFF INH Q12H Furosemide (Lasix), 40 MG PO DAILY Gabapentin (Gabapentin), 100 MG PO Q8 Home O2 Therapy (Oxygen), 2 LITERS NA PRN Magnesium Oxide (Mag-Ox), 400 MG PO QAM Metoprolol Succ (Toprol Xl) (Toprol-Xl), 12.5 MG PO BID Omeprazole (Prilosec), 40 MG PO DAILY Potassium Ext Rel (Klor-Con), 20 MEQ PO DAILY Spironolactone (Spironolactone), 25 MG PO DAILY Tamsulosin HCl (Tamsulosin HCl), 1 CAP PO BID Tiotropium [place] (Spiriva Handihaler), 1 CAP INH DAILY Scheduled PRN Acetaminophen (Tylenol), 650 MG PO Q6 PRN for Pain Albuterol Hfa (Ventolin Hfa), 2 PUFFS INH Q6 PRN for Wheezing Fluticasone Propionate (Nasal) (Flonase Allergy Relief), 2 SPRAYS DARREN DAILY PRN for Nasal Congestion Ipratropium-Albuterol (Duoneb), 1 TREATMENT NEB Q6 PRN for SOB/Wheezing Nitroglycerin (Nitrostat), 0.4 MG SL UD PRN for Chest Pain Prednisone (Prednisone), 5 MG PO UD PRN for EMERGENCY KIT Saline ([place] Nasal [place]), 2 SPRY DARREN UD PRN for nasal congestion or dryness Problem List Medical Problems: (1) Amputation of lower limb (2) Anemia (3) BPH (benign prostatic hypertrophy) (4) Chest pain (5) Chronic respiratory failure (6) COPD (chronic obstructive pulmonary disease) (7) COPD exacerbation (8) Coronary artery disease (9) Dyslipidemia (10) GI bleed (11) Hypertension (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 (13) Peripheral vascular disease (14) Pulmonary edema (15) Respiratory failure, [id number] (16) Severe sepsis Surgical Problems: (1) Status post coronary artery stent placement Surgical / Medical History Hx Cardiac Surgery: Yes Hx Abdominal Surgery: Yes Hx Cancer Surgery: No Hx Thoracic Surgery: No Hx Orthopedic: Yes Hx Urinary Tract Surgery: No Past Medical/Surgical History: COPD, Heart Disease, High Cholesterol, Hypertension Family History Heart disease Hypertension Lung disease Social History Smoking Status: Current Every Day Smoker Hx Tobacco Use In Past Year?: Yes Hx Alcohol Use - Type & Amnt: No Hx Substance Use -Type & Amnt: No Review of Systems Constitutional: + malaise, No chills, No fever Skin: No change in color Eyes: No visual changes ENMT: No sore throat Respiratory: + cough, + CASAS, + orthopnea, No hemoptysis, No short of breath Cardiovascular: No chest pain, No chest pressure, No syncope, No edema, No intermittent claudication (pt LLE AKA) Gastrointestinal: No abdominal pain, No nausea, No vomiting Neurologic: No dizziness, No headache, No numbness, No tingling Physical Exam Constitutional: General Apperance: well-nourished, well-developed, too thin Level of Distress: chronically ill Psychiatric: Mental Status: active & alert, normal mood, normal affect Orientation: oriented except where noted, to time, to place, to person Memory: recent memory normal (but vague), remote memory normal Head: normocephalic, atraumatic Eyes: EOM: EOMI ENMT: normal ENT inspection, hearing grossly normal Neck: supple, trachea midline Lungs: Respiratory effort: no dyspnea Auscultation: no wheezing, no rhonchi Cardiovascular: Apical Impulse: not displaced Heart Auscultation: RRR, no rubs, no gallops Peripheral Pulses: Pulses: full and equal, in all extremities except if noted Bruits: none appreciated Carotid Pulse: normal on the left, normal on the right Brachial Pulses: normal on the left, normal on the right Radial Pulse: normal on the left, normal on the right Femoral Pulse: normal on the right, absent on the left Posterior Tibialis Pulse: decreased on the right, absent on the left Dorsalis Pedis Pulse: decreased on the right, absent on the left Abdomen: Bowel Sounds: normal Inspection & Palpation: soft, non-distended, no tenderness, guarding & rebound, pertinent finding (abd with large ventral hernia noted. L groin/hip with large area of hematoma vs seroma, no ecchymosis noted. Soft. No active bleeding from surgical site. ) Extremities: Upper Right: no cyanosis, no edema, no varicosities Upper Left: no cyanosis, no edema, no varicosities Lower Right: no cyanosis, no edema, no varicosities Lower Left: no cyanosis, no varicosities, no palpable cord, pertinent finding (LLE AKA) Neurologic: Cranial Nerves: grossly intact Sensation: grossly intact Assessment and Plan ASSESSMENT and PLAN: L groin hematoma/seroma Pt also seen by Dr Baldwin today, who reviewed pt's CTA. Pt's hematoma/ seroma does not demonstrate active bleeding on CT scan and is without surrounding ecchymosis. No indications for vascular surgical intervention at this time. Records from [place] unavailable at this time. Will attempt to contact surgeon there for more information. Please call if needed.
--- NOTE | 2017-06-13 10:55 | Cardiology Follow-Up ---
Subjective General Date of Service: Jun 13, 2017. Chief Complaint: SOB Pt evaluation today including: conversation w/ patient, physical exam, chart review, lab review, review of studies, review of inpatient medication list History of Present Illness Patient seen and examined. No chest pain. Breathing improved since admission Data: Telemetry: Currently sinus at 82 bpm with occasional PVC's in singles. 4 and 6 beat runs of VT on 06/12/2017 Ischemic cardiomyopathy with LVEF 20-25% Obstructive coronary artery disease. March 17, 2017 catheterization with irregularities of the LM, mild to moderate LAD disease including a 70-80% distal LAD lesion, ostial 80% LCX stenosis, and a large RCA with 30% disease throughout as well as a small posterolateral branch with 70% lesion. Moderate to severe aortic stenosis. ISABEL 0.96 cm2, mean gradient 16.5 mmHg. Allergies Coded Allergies: No Known Allergies (Verified , 06/04/17) Social History Smoking Status: Current Every Day Smoker Hx Tobacco Use In Past Year?: Yes Hx Alcohol Use - Type And Amou: No Hx Substance Use - Type And Am: No Problem List Medical Problems: (1) Anemia Status: Chronic (2) Dehydration Status: Acute (3) Diarrhea Status: Acute (4) Elevated troponin Status: Acute (5) Generalized weakness Status: Acute (6) Hip hematoma, left Status: Acute (7) Hypoxia Status: Acute (8) Near syncope Status: Acute (9) Oxygen dependent Status: Acute (10) Postoperative seroma Status: Acute (11) Tobacco abuse Status: Acute Physical Exam Vital Signs Last Vital Signs Documentation Date Time Temp Pulse Resp B/P (MAP) Pulse Ox O2 Delivery O2 Flow Rate FiO2 06/13/17 09:39 Nasal Cannula 4.0 06/13/17 07:49 36.5 65 20 106/58 (74) 92 Physical Exam Constitutional: General Apperance: cachectic Level of Distress: acutely ill, chronically ill Psychiatric: Mental Status: active & alert, abnormal affect Orientation: to time, to place, to person Memory: recent memory normal, remote memory normal Head: normocephalic, atraumatic Eyes: EOM: EOMI Neck: pertinent finding (Normal JVP) Lungs: Respiratory effort: no dyspnea Auscultation: no wheezing, no rales/crackles, no rhonchi, deminished air movement, decreased breath sounds, pertinent finding (absent breath sounds at the bases laterally) Cardiovascular: Apical Impulse: not displaced Heart Auscultation: pertinent finding (Very distant heart sounds. Appears RRR. I could not appreciate a mumur. ) Peripheral Pulses: Radial Pulse: normal on the left, normal on the right Femoral Pulse: absent on the left Dorsalis Pedis Pulse: absent on the right Abdomen: Bowel Sounds: normal Inspection & Palpation: soft, non-distended, no tenderness, guarding & rebound, pertinent finding (L groin/hip hematoma) Extremities: no edema (on the right), clubbing Neurologic: Cranial Nerves: grossly intact Assessment and Plan Assessment and Plan Admission with acute on chronic severe obstructive lung disease exacerbation. Significant peripheral vascular disease status post left above the knee amputation with Severe ischemic cardiomyopathy with severe left ventricular dysfunction, EF 20%. Moderately severe aortic stenosis Asymptomatic short runs of ventricular tachycardia RECOMMENDATIONS: Recheck electrolytes Hold IV furosemide in AM, assessing need for ongoing IV diuretics again in the AM Decrease atorvastatin from 80 mg/day to 40 mg/day as amiodarone can increase the serum concentration of atorvastatin. Medical management of the obstructive CAD and aortic valve disease. ICD declined. CARDIOLOGY ATTENDING ADDENDUM: The patient was seen and personally examined. Agree with Pramod Issa PA-C's findings and plans as documented above with additions as below. S: no complaints Exam :11/01 Impression: as above. Plan: as above. DO Dana Laboratory Results Last 24 Hours Test 06/12/17 13:23 Hemoglobin 9.3 g/dL Hematocrit 28.1 %
[2017-06-13 11:57] LABS: HEMATOCRIT 29.8 % (42-52); MEAN CELL VOLUME 92.8 fL (80-100); MEAN CORPUSCULAR HEMOGLOBIN 29.9 pg (25-34); MEAN CORPUSCULAR HGB CONC 32.2 g/dl (32-36); MEAN PLATELET VOLUME 9.9 fL (7.4-10.4); PLATELET COUNT 331 K/uL (130-400); RED BLOOD COUNT 3.21 M/uL (4.7-6.1); WHITE BLOOD COUNT 13.36 K/uL (4.8-10.8)
[2017-06-13] MEDS: LORAZEPAM 0.5 MG TAB PO PRN ×2 (12:10→22:28)
[2017-06-13 12:21] LABS: CREATININE 0.81 mg/dl (0.60-1.40); MAGNESIUM 1.9 mg/dl (1.8-2.4); POTASSIUM 3.5 mmol/L (3.5-5.1)
[2017-06-13] MEDS: ACETAMINOPHEN 325 MG TAB PO PRN ×2 (12:33→18:46)
[2017-06-13] MEDS: TRAMADOL HCL 50 MG TAB PO PRN ×2 (13:53→19:24)
[2017-06-13] MEDS ORDERED: POTASSIUM CHLORIDE 10 MEQ TABCR PO ONE (14:00)
--- NOTE | 2017-06-13 16:31 | Progress Note ---
Subjective Date of Service: Jun 13, 2017. Subjective Pt evaluation today including: conversation w/ patient, physical exam, lab review, review of studies, review of inpatient medication list Saw/examined the patient in room 217 Breathing is improving No chest pain Resting comfortably Problem List Medical Problems: (1) Anemia Status: Chronic (2) Dehydration Status: Acute (3) Diarrhea Status: Acute (4) Elevated troponin Status: Acute (5) Generalized weakness Status: Acute (6) Hip hematoma, left Status: Acute (7) Hypoxia Status: Acute (8) Near syncope Status: Acute (9) Oxygen dependent Status: Acute (10) Postoperative seroma Status: Acute (11) Tobacco abuse Status: Acute Review of Systems Respiratory: + shortness of breath (improving), No cough, No sputum, No wheezing, No dyspnea on exertion Cardiac: No chest pain Abdomen: No pain, No nausea, No vomiting, No diarrhea Medications Current Inpatient Medications Medications (Trade) Dose Ordered Sig/Linda Route Start Time Stop Time Status Last Admin Dose Admin Ipratropium [place] (Atrovent 0.02% 0.5MG/2.5ML Neb) 0.5 mg Q8R INH 06/11/17 16:00 07/11/17 15:59 06/13/17 14:35 0.5 MG Levalbuterol (Xopenex 0.63 Mg/ 3 Ml Neb) 0.63 mg Q6R INH 06/11/17 15:00 07/11/17 14:59 06/13/17 14:35 0.63 MG Methylprednisolone Sodium Succinate 40 mg/Syringe 0.64 ml @ 1.5 mls/min Q8 IV 06/11/17 14:00 07/11/17 13:59 06/13/17 13:57 1.5 MLS/MIN Amiodarone HCl (Cordarone Tab) 400 mg BID PO 06/11/17 21:00 06/24/17 23:59 06/13/17 08:10 400 MG Docusate Sodium (coLACE CAP) 100 mg DAILY PO 06/12/17 09:00 07/12/17 08:59 06/13/17 08:10 100 MG Ferrous Sulfate (Feosol Tab) 325 mg DAILY PO 06/12/17 09:00 07/12/17 08:59 06/13/17 08:15 325 MG Finasteride (Proscar Tab) 5 mg QAM PO 06/12/17 09:00 07/12/17 08:59 06/13/17 08:13 5 MG Salmeterol Xinafoate/ Fluticasone (Advair Diskus 250/50 Inh) 1 puff Q12 INH 06/11/17 21:00 07/11/17 20:59 06/13/17 08:17 1 PUFF Fluticasone Propionate (Flonase Nasal [place]) 2 sprays DAILY PRN DARREN 06/11/17 11:30 07/11/17 11:29 Gabapentin (Neurontin Cap) 100 mg Q8 PO 06/11/17 14:00 07/11/17 13:59 06/13/17 14:02 100 MG Magnesium Oxide (Mag-Ox Tab) 400 mg QAM PO 06/12/17 09:00 07/12/17 08:59 06/13/17 08:12 400 MG Metoprolol Succinate (Toprol Xl Tab) 12.5 mg BID PO 06/11/17 21:00 07/11/17 20:59 06/13/17 08:41 12.5 MG Nitroglycerin (Nitrostat Tab) 0.4 mg UD PRN SL 06/11/17 11:30 07/11/17 11:29 Potassium Chloride (Klor-Con Tab) 20 meq DAILY PO 06/12/17 09:00 07/12/17 08:59 06/13/17 08:11 20 MEQ Spironolactone (Aldactone Tab) 25 mg DAILY PO 06/12/17 09:00 07/12/17 08:59 06/13/17 08:13 25 MG Tamsulosin HCl (Flomax Cap) 0.4 mg BID PO 06/11/17 21:00 07/11/17 20:59 06/13/17 08:12 0.4 MG Tiotropium [place] (Spiriva Handihaler Inhaler) 1 puff DAILY INH 06/12/17 09:00 07/12/17 08:59 06/13/17 08:18 1 PUFF Pantoprazole Sodium (Protonix Tab) 40 mg QAM PO 06/12/17 09:00 07/12/17 08:59 06/13/17 08:09 40 MG Acetaminophen (Tylenol Tab) 650 mg Q6 PRN PO 06/11/17 12:45 10/16/17 12:44 06/13/17 12:33 650 MG Amiodarone HCl (Cordarone Tab) 200 mg DAILY PO 06/25/17 09:00 07/25/17 08:59 Piperacillin Sod/ Tazobactam Sod 3.375 gm/Dextrose 115 ml @ 28.75 mls/ hr Q8H IV 06/11/17 22:00 06/18/17 21:59 06/13/17 14:02 28.75 MLS/HR Piperacillin Sod/ Tazobactam Sod (Consult) 1 ea UD PRN N/A 06/11/17 13:15 07/11/17 13:14 Furosemide 20 mg/ Syringe 2 ml @ 4 mls/min BID IV 06/11/17 23:00 07/11/17 22:59 06/13/17 08:14 4 MLS/MIN Lorazepam (Ativan Tab) 0.5 mg TID PRN PO 06/11/17 18:00 07/11/17 17:59 06/13/17 12:10 0.5 MG Ioversol (Optiray 320) 125 ml UD PRN IV 06/12/17 09:15 06/16/17 09:14 Enteral Nutritional Formula (Boost Plus Vanilla) 1 can TID PO 06/12/17 21:00 07/12/17 20:59 06/13/17 14:14 1 CAN Tramadol HCl (Ultram Tab) 50 mg Q4H PRN PO 06/12/17 17:45 07/12/17 17:44 06/13/17 13:53 50 MG Atorvastatin Calcium (Lipitor Tab) 40 mg HS PO 06/13/17 21:00 07/11/17 20:59 Objective Vital Signs Date Time Temp Pulse Resp B/P (MAP) Pulse Ox O2 Delivery O2 Flow Rate FiO2 06/13/17 15:33 36.4 73 18 103/60 (74) 98 Nasal Cannula 4.0 06/13/17 14:35 67 16 98 Nasal Cannula 4.0 06/13/17 12:00 Nasal Cannula 4.0 06/13/17 11:11 36.7 73 16 109/8 (41) 97 Nasal Cannula 4.0 06/13/17 09:39 Nasal Cannula 4.0 06/13/17 08:00 Nasal Cannula 4.0 06/13/17 07:49 36.5 65 20 106/58 (74) 92 Nasal Cannula 4.0 06/13/17 07:41 36.4 64 16 105/59 (74) 92 Nasal Cannula 4.0 06/13/17 07:09 65 16 91 Nasal Cannula 4.0 06/13/17 04:00 Nasal Cannula 4.0 06/13/17 03:42 36.5 62 18 107/53 (71) 91 Nasal Cannula 4.0 06/13/17 01:53 66 16 93 Nasal Cannula 4.0 06/13/17 00:02 Nasal Cannula 4.0 06/13/17 00:00 36.4 65 20 105/56 (72) 92 Nasal Cannula 4.0 06/12/17 20:00 Nasal Cannula 4.0 06/12/17 19:20 36.4 74 16 107/64 (78) 96 Nasal Cannula 4.0 06/12/17 19:04 73 16 93 Nasal Cannula 4.0 Physical Exam General Appearance: no apparent distress, + cachetic, + thin Respiratory/Chest: no respiratory distress, no accessory muscle use, + decreased breath sounds Cardiovascular: regular rate, rhythm, no murmur Extremities: + pertinent finding (hematoma at L lateral thigh/inguinal region - L AKA) Laboratory Results Last 24 Hours Test 06/13/17 11:33 White Blood Count 13.36 K/uL Red Blood Count 3.21 M/uL Hemoglobin 9.6 g/dL Hematocrit 29.8 % Mean Corpuscular Volume 92.8 fL Mean Corpuscular Hemoglobin 29.9 pg Mean Corpuscular Hemoglobin Concent 32.2 g/dl RDW Standard Deviation 49.5 fL RDW Coefficient of Variation 14.9 % Platelet Count 331 K/uL Mean Platelet Volume 9.9 fL Sodium Level 137 mmol/L Potassium Level 3.5 mmol/L Chloride Level 93 mmol/L Carbon Dioxide Level 38 mmol/L Anion Gap 6.0 mmol/L Blood Urea Nitrogen 24 mg/dl Creatinine 0.81 mg/dl Est Creatinine Clear Calc Drug Dose 48.5 ml/min Estimated GFR () 100.1 Estimated GFR (Non- 86.3 BUN/Creatinine Ratio 29.0 Random Glucose 152 mg/dl Calcium Level 9.0 mg/dl Magnesium Level 1.9 mg/dl Assessment and Plan This is a 77 year old male with a complex medical history, including CAD s/p stent in , severe COPD and chronic respiratory failure on 2L O2 continuously , severe ischemic cardiomyopathy with EF of ~ 20%, traumatic L lower leg amputation presents with worsening shortness of breath. Anemia 06/13 given 1 unit pRBC Hgb has come up to >9 monitor H/H 06/12 rule out blood loss, could be from fluid overload must rule out bleeding from surgical site previous bleeding from femoral artery will obtain CTA abdomen/pelvis if any active bleeding, will likely need to be transferred out of the hospital if no active bleeding, will give pRBCs and recheck H/H four hours post- transfusion Acute COPD exacerbation Acute on Chronic Respiratory Failure 06/13 appreciate pulm input for now, on Solu-medrol switch to oral and taper if okay with pulmonology for now, on Zosyn due to prolonged qtc; avoiding Levaquin - can possibly start doxy if okay with pulm 06/12 continue Solu-medrol, Zosyn, nebs 06/11 patient with severe emphysema on chronically on 2L of O2 continuously presents with worsening shortness of breath, wheezing, with improvement of Solu- medrol and nebulizers this is likely an exacerbation of his COPD will start Solu-medrol 40mg q8 Levaquin nebulizers around the clock pulmonary consult for further input - patient was to see pulmonology as outpatient for possible CT scan continue O2 as needed and wean back to 2L when breathing improves Ischemic Cardiomyopathy Acute on Chronic Systolic CHF, with EF ~ 20% 06/13 no more Plavix due to bleed risk Amiodarone tapering dose, currently on 400mg BID, switch to 200mg on June 25 Lipitor started as per cardiology 06/12 patient is on dual diuretic therapy (Lasix + Aldactone) he refused ICD placement in the past CXR suggests fluid/edema BNP elevated took his Lasix and Aldactone this morning will give another 20mg of Lasix via IV; monitor blood pressure currently on Amiodarone 400mg BID until June 24, and then 200mg daily cardiology consulted Elevated Troponin in the setting of CAD denies any chest pain elevated troponin likely from ischemia from COPD as well as CHF exacerbation we will monitor in tele trend cardiac enzymes echo done in February 2017; will consult cardiology for further input stent placed in 1996 Plavix recently stopped at [id number]; cont. Toprol XL 12.5mg BID, and high intensity statin will stop aspirin due to anemia DVT ppx SCDs DNR, is okay with a trial of intubation
--- NOTE | 2017-06-13 17:43 | Pulmonology Progress Note ---
Pulmonary Progress Note Date of Service Jun 13, 2017. Attending Dr. Esquivel Subjective Patient notes he is fatigued. He notes that he is not back to his baseline status but becomes notably more short of breath if he is also quickly becomes excited. Objective 77-year-old male admitted to the [facility] 06/11/2017 with progressive shortness of breath. He was recently admitted to the [facility] on June 10, 2017 and hospitalized for left axis femoral graft debridement. At that time he was noted to have left femoral arterial bleeding and hemostasis/tamponade was obtained by compression bags with subsequent thrombus formation noted by angiography. Due to this patients anticoagulation and antiplatelet therapy had to be discontinued. Patient was returning home from his previous hospital admission when his son noted. Become unresponsive and EMS was called. On arrival he was found to have saturations in the 60s and in the emergency room department and was noted be at 94%. Past medical history: Chronic anemia, her COPD, oxygen dependent, continued tobacco use disorder, ischemic cardiomyopathy with an EF of 20-25% I/O: -79cc SaO2: 91-98% Respiratory: 16-20 Pulse: 60-73 FiO2: 4 L Respiratory: Cardiac: Abdomen: Extremities: Workup: WBC: 13K PLT: 331 Procalcitonin: 0.22 INR/PT/PTT: 1.1/11.7/25.1 VBG (06/11/17) 7.41/59 CT angiogram 06/12/2017: As bilateral pleural effusions with signs of bilateral emphysema and diffuse infiltrate the lower lobe and lingula Current treatment: #1 amiodarone #2 Lipitor #3 Aldactone #4 Spiriva #5 pantoprazole #6 Zosyn #7 Advair Diskus 250/50 #8 metoprolol #9 Xopenex/Atrovent nebulizer #10 methylprednisolone 40 mg IV every 8hrs Assessment & Plan 77-year-old male admitted with acute on chronic shortness of breath with multiple comorbidities: Respiratory: At this time patient's respiratory status/hypoxemia is most likely multifactorial with COPD and cardiomyopathy adding together. This time we'll continue his current current pulmonary regimen but decrease his IV steroids to every 12 hours monitor the patient and possibly removed. Steroids the following day. Infectious disease: I do agree with the current antibiotic regimen as he is increased risk for aspiration with his altered mental status and weak state on arrival. He does show signs of aspiration via his left lower lobe/lingula on CT. Pleural effusion: Patient does have bilateral pleural effusions most likely from CHF, malnutrition continue to monitor. Data Medications: Current Inpatient Medications Medications (Trade) Dose Ordered Sig/Linda Route Start Time Stop Time Status Last Admin Dose Admin Ipratropium [place] (Atrovent 0.02% 0.5MG/2.5ML Neb) 0.5 mg Q8R INH 06/11/17 16:00 07/11/17 15:59 06/13/17 14:35 0.5 MG Levalbuterol (Xopenex 0.63 Mg/ 3 Ml Neb) 0.63 mg Q6R INH 06/11/17 15:00 07/11/17 14:59 06/13/17 14:35 0.63 MG Methylprednisolone Sodium Succinate 40 mg/Syringe 0.64 ml @ 1.5 mls/min Q8 IV 06/11/17 14:00 07/11/17 13:59 06/13/17 13:57 1.5 MLS/MIN Amiodarone HCl (Cordarone Tab) 400 mg BID PO 06/11/17 21:00 06/24/17 23:59 06/13/17 08:10 400 MG Docusate Sodium (coLACE CAP) 100 mg DAILY PO 06/12/17 09:00 07/12/17 08:59 06/13/17 08:10 100 MG Ferrous Sulfate (Feosol Tab) 325 mg DAILY PO 06/12/17 09:00 07/12/17 08:59 06/13/17 08:15 325 MG Finasteride (Proscar Tab) 5 mg QAM PO 06/12/17 09:00 07/12/17 08:59 06/13/17 08:13 5 MG Salmeterol Xinafoate/ Fluticasone (Advair Diskus 250/50 Inh) 1 puff Q12 INH 06/11/17 21:00 07/11/17 20:59 06/13/17 08:17 1 PUFF Fluticasone Propionate (Flonase Nasal [place]) 2 sprays DAILY PRN DARREN 06/11/17 11:30 07/11/17 11:29 Gabapentin (Neurontin Cap) 100 mg Q8 PO 06/11/17 14:00 07/11/17 13:59 06/13/17 14:02 100 MG Magnesium Oxide (Mag-Ox Tab) 400 mg QAM PO 06/12/17 09:00 07/12/17 08:59 06/13/17 08:12 400 MG Metoprolol Succinate (Toprol Xl Tab) 12.5 mg BID PO 06/11/17 21:00 07/11/17 20:59 06/13/17 08:41 12.5 MG Nitroglycerin (Nitrostat Tab) 0.4 mg UD PRN SL 06/11/17 11:30 07/11/17 11:29 Potassium Chloride (Klor-Con Tab) 20 meq DAILY PO 06/12/17 09:00 07/12/17 08:59 06/13/17 08:11 20 MEQ Spironolactone (Aldactone Tab) 25 mg DAILY PO 06/12/17 09:00 07/12/17 08:59 06/13/17 08:13 25 MG Tamsulosin HCl (Flomax Cap) 0.4 mg BID PO 06/11/17 21:00 07/11/17 20:59 06/13/17 08:12 0.4 MG Tiotropium [place] (Spiriva Handihaler Inhaler) 1 puff DAILY INH 06/12/17 09:00 07/12/17 08:59 06/13/17 08:18 1 PUFF Pantoprazole Sodium (Protonix Tab) 40 mg QAM PO 06/12/17 09:00 07/12/17 08:59 06/13/17 08:09 40 MG Acetaminophen (Tylenol Tab) 650 mg Q6 PRN PO 06/11/17 12:45 07/11/17 12:44 06/13/17 12:33 650 MG Amiodarone HCl (Cordarone Tab) 200 mg DAILY PO 06/25/17 09:00 07/25/17 08:59 Piperacillin Sod/ Tazobactam Sod 3.375 gm/Dextrose 115 ml @ 28.75 mls/ hr Q8H IV 06/11/17 22:00 06/18/17 21:59 06/13/17 14:02 28.75 MLS/HR Piperacillin Sod/ Tazobactam Sod (Consult) 1 ea UD PRN N/A 06/11/17 13:15 07/11/17 13:14 Furosemide 20 mg/ Syringe 2 ml @ 4 mls/min BID IV 06/11/17 23:00 07/11/17 22:59 06/13/17 08:14 4 MLS/MIN Lorazepam (Ativan Tab) 0.5 mg TID PRN PO 06/11/17 18:00 07/11/17 17:59 06/13/17 12:10 0.5 MG Ioversol (Optiray 320) 125 ml UD PRN IV 06/12/17 09:15 06/16/17 09:14 Enteral Nutritional Formula (Boost Plus Vanilla) 1 can TID PO 06/12/17 21:00 07/12/17 20:59 06/13/17 14:14 1 CAN Tramadol HCl (Ultram Tab) 50 mg Q4H PRN PO 06/12/17 17:45 07/12/17 17:44 06/13/17 13:53 50 MG Atorvastatin Calcium (Lipitor Tab) 40 mg HS PO 06/13/17 21:00 07/11/17 20:59 I & O: 24-Hour Column 06/14/17 08:00 Intake Total 441 ml Output Total 250 ml Balance 191 ml Vital Signs: Date Time Temp Pulse Resp B/P (MAP) Pulse Ox O2 Delivery O2 Flow Rate FiO2 06/13/17 15:33 36.4 73 18 103/60 (74) 98 Nasal Cannula 4.0 06/13/17 14:35 67 16 98 Nasal Cannula 4.0 06/13/17 12:00 Nasal Cannula 4.0 06/13/17 11:11 36.7 73 16 109/8 (41) 97 Nasal Cannula 4.0 06/13/17 09:39 Nasal Cannula 4.0 06/13/17 08:00 Nasal Cannula 4.0 06/13/17 07:49 36.5 65 20 106/58 (74) 92 Nasal Cannula 4.0 06/13/17 07:41 36.4 64 16 105/59 (74) 92 Nasal Cannula 4.0 06/13/17 07:09 65 16 91 Nasal Cannula 4.0 06/13/17 04:00 Nasal Cannula 4.0 06/13/17 03:42 36.5 62 18 107/53 (71) 91 Nasal Cannula 4.0 06/13/17 01:53 66 16 93 Nasal Cannula 4.0 06/13/17 00:02 Nasal Cannula 4.0 06/13/17 00:00 36.4 65 20 105/56 (72) 92 Nasal Cannula 4.0 06/12/17 20:00 Nasal Cannula 4.0 06/12/17 19:20 36.4 74 16 107/64 (78) 96 Nasal Cannula 4.0 06/12/17 19:04 73 16 93 Nasal Cannula 4.0 Laboratory Results: Last 24 Hours Test 06/13/17 11:33 White Blood Count 13.36 K/uL Red Blood Count 3.21 M/uL Hemoglobin 9.6 g/dL Hematocrit 29.8 % Mean Corpuscular Volume 92.8 fL Mean Corpuscular Hemoglobin 29.9 pg Mean Corpuscular Hemoglobin Concent 32.2 g/dl RDW Standard Deviation 49.5 fL RDW Coefficient of Variation 14.9 % Platelet Count 331 K/uL Mean Platelet Volume 9.9 fL Sodium Level 137 mmol/L Potassium Level 3.5 mmol/L Chloride Level 93 mmol/L Carbon Dioxide Level 38 mmol/L Anion Gap 6.0 mmol/L Blood Urea Nitrogen 24 mg/dl Creatinine 0.81 mg/dl Est Creatinine Clear Calc Drug Dose 48.5 ml/min Estimated GFR () 100.1 Estimated GFR (Non- 86.3 BUN/Creatinine Ratio 29.0 Random Glucose 152 mg/dl Calcium Level 9.0 mg/dl Magnesium Level 1.9 mg/dl
[2017-06-13] MEDS: ATORVASTATIN 40 MG TAB PO SCH (21:12)
[2017-06-14] VITALS (13 sets, daily range): BP systolic 98–118; BP diastolic 55–73; PULSE 59–85; TEMP 36.4–36.7; O2SAT 94–100
[2017-06-14] MEDS: LEVALBUTEROL 0.63MG/3 ML NEB INH SCH ×4 (01:31→19:22)
[2017-06-14] MEDS: PIPERACILL/TAZOBAC IV 3.375 GM in DEXTROSE 5% 100ML 100 ML IV SCH ×2 (05:33→13:40)
[2017-06-14] MEDS: GABAPENTIN 100 MG CAP PO SCH ×3 (05:33→21:33)
[2017-06-14 06:30] LABS: HEMATOCRIT 28.5 % (42-52); MEAN CELL VOLUME 92.5 fL (80-100); MEAN CORPUSCULAR HEMOGLOBIN 29.9 pg (25-34); MEAN CORPUSCULAR HGB CONC 32.3 g/dl (32-36); MEAN PLATELET VOLUME 9.9 fL (7.4-10.4); PLATELET COUNT 314 K/uL (130-400); RED BLOOD COUNT 3.08 M/uL (4.7-6.1); WHITE BLOOD COUNT 11.26 K/uL (4.8-10.8)
[2017-06-14] MEDS: IPRATROPIUM BROMIDE NEB SOLN 0.02% 2.5 ML VIAL INH SCH ×3 (06:55→19:22)
[2017-06-14 07:09] LABS: BUN/CREATININE RATIO 39.3 (10-20); CALCIUM 9.1 mg/dl (8.5-10.1); CREATININE 0.68 mg/dl (0.60-1.40); POTASSIUM 4.3 mmol/L (3.5-5.1)
[2017-06-14] MEDS: TIOTROPIUM BROMIDE 5 PUFF/90 MCG INH INH SCH (07:47)
[2017-06-14] MEDS: FLUTICASONE/SALMETEROL 250/50 (ADVAIR) 14 PUFF/1 INHALER INH SCH ×2 (07:47→21:32)
[2017-06-14] MEDS: ACETAMINOPHEN 325 MG TAB PO PRN ×2 (07:47→20:07)
[2017-06-14] MEDS: PANTOprazole SOD 40 MG TAB PO SCH (07:48)
[2017-06-14] MEDS: MAGNESIUM OXIDE 400 MG TAB PO SCH (07:49)
[2017-06-14] MEDS: DOCUSATE SODIUM 100 MG CAP PO SCH (07:49)
[2017-06-14] MEDS: FERROUS SULFATE 325 MG TAB PO SCH (07:49)
[2017-06-14] MEDS: TAMSULOSIN HCL 0.4 MG CAP PO SCH ×2 (07:49→21:33)
[2017-06-14] MEDS: AMIODARONE 200 MG TAB PO SCH ×2 (07:50→21:33)
[2017-06-14] MEDS: METOPROLOL SUCC 25MG EXT REL TAB PO SCH ×2 (07:50→21:32)
[2017-06-14] MEDS: SPIRONOLACTONE 25 MG TAB PO SCH (07:51)
[2017-06-14] MEDS: FINASTERIDE 5 MG TAB PO SCH (07:51)
[2017-06-14] MEDS: POTASSIUM CHLORIDE 20 MEQ TABCR PO SCH (07:51)
[2017-06-14] MEDS: BOOST PLUS VANILLA PO SCH ×6 (07:57→21:34)
[2017-06-14] MEDS: METHYLPREDNISOLONE IV 40 MG in SYRINGE 0 ML IV SCH ×2 (07:57→21:30)
[2017-06-14] MEDS: FUROSEMIDE INJ 20 MG in SYRINGE 0 ML IV SCH (07:57)
--- NOTE | 2017-06-14 08:06 | Pulmonology Progress Note ---
Pulmonary Progress Note Date of Service Jun 14, 2017. Attending Dr. Esquivel Subjective Patient notes mild improvement in his respiratory status over the last 24 hours Objective 77-year-old male admitted to the [facility] 06/11/2017 with progressive shortness of breath. He was recently admitted to the [facility] on June 10, 2017 and hospitalized for left axis femoral graft debridement. At that time he was noted to have left femoral arterial bleeding and hemostasis/tamponade was obtained by compression bags with subsequent thrombus formation noted by angiography. Due to this patients anticoagulation and antiplatelet therapy had to be discontinued. Patient was returning home from his previous hospital admission when his son noted. Become unresponsive and EMS was called. On arrival he was found to have saturations in the 60s and in the emergency room department and was noted be at 94%. Past medical history: Chronic anemia, her COPD, oxygen dependent, continued tobacco use disorder, ischemic cardiomyopathy with an EF of 20-25% I/O: -19cc SaO2: 91-98% Respiratory: 17-20 Pulse: 67-73 FiO2: 2-4 L Respiratory: Clear to auscultation in the apices with decreased breath sounds at the bases right greater than left Cardiac: S1 and S2 distant heart tones unable to auscultate Abdomen: Positive bowel sounds soft nontender Extremities: left sided AKA Workup: WBC: 11K PLT: 314K CT angiogram 06/12/2017: As bilateral pleural effusions with signs of bilateral emphysema and diffuse infiltrate the lower lobe and lingula Current treatment: #1 Amiodarone #2 Lipitor #3 Aldactone #4 Spiriva #5 Pantoprazole #6 Zosyn #7 Advair Diskus 250/50 #8 Metoprolol #9 Xopenex/Atrovent nebulizer #10 methylprednisolone 40 mg IV every 8hrs Assessment & Plan Assessment & Plan 77-year-old male admitted with acute on chronic shortness of breath with multiple comorbidities: Respiratory: Hypoxemia most likely secondary to cardiomyopathy and COPD adding together. Patient switched to every 12 IV steroids. Monitor for 24 window and if stable will reevaluate for possibly switching to by mouth steroids at that time. Infectious disease: I do agree with the current antibiotic regimen as he is increased risk for aspiration with his altered mental status and weak state on arrival. He does show signs of aspiration via his left lower lobe/lingula on CT. Pleural effusion: Patient does have bilateral pleural effusions most likely from CHF, malnutrition continue to monitor. Data Medications: Current Inpatient Medications Medications (Trade) Dose Ordered Sig/Linda Route Start Time Stop Time Status Last Admin Dose Admin Ipratropium [place] (Atrovent 0.02% 0.5MG/2.5ML Neb) 0.5 mg Q8R INH 06/11/17 16:00 07/11/17 15:59 06/14/17 06:55 0.5 MG Levalbuterol (Xopenex 0.63 Mg/ 3 Ml Neb) 0.63 mg Q6R INH 06/11/17 15:00 07/11/17 14:59 06/14/17 06:55 0.63 MG Amiodarone HCl (Cordarone Tab) 400 mg BID PO 06/11/17 21:00 06/24/17 23:59 06/14/17 07:50 400 MG Docusate Sodium (coLACE CAP) 100 mg DAILY PO 06/12/17 09:00 07/12/17 08:59 06/14/17 07:49 100 MG Ferrous Sulfate (Feosol Tab) 325 mg DAILY PO 06/12/17 09:00 07/12/17 08:59 06/14/17 07:49 325 MG Finasteride (Proscar Tab) 5 mg QAM PO 06/12/17 09:00 07/12/17 08:59 06/14/17 07:51 5 MG Salmeterol Xinafoate/ Fluticasone (Advair Diskus 250/50 Inh) 1 puff Q12 INH 06/11/17 21:00 07/11/17 20:59 06/14/17 07:47 1 PUFF Fluticasone Propionate (Flonase Nasal [place]) 2 sprays DAILY PRN DARREN 06/11/17 11:30 07/11/17 11:29 Gabapentin (Neurontin Cap) 100 mg Q8 PO 06/11/17 14:00 07/11/17 13:59 06/14/17 05:33 100 MG Magnesium Oxide (Mag-Ox Tab) 400 mg QAM PO 06/12/17 09:00 07/12/17 08:59 06/14/17 07:49 400 MG Metoprolol Succinate (Toprol Xl Tab) 12.5 mg BID PO 06/11/17 21:00 10/16/17 20:59 06/14/17 07:50 12.5 MG Nitroglycerin (Nitrostat Tab) 0.4 mg UD PRN SL 06/11/17 11:30 07/11/17 11:29 Potassium Chloride (Klor-Con Tab) 20 meq DAILY PO 06/12/17 09:00 07/12/17 08:59 06/14/17 07:51 20 MEQ Spironolactone (Aldactone Tab) 25 mg DAILY PO 06/12/17 09:00 07/12/17 08:59 06/14/17 07:51 25 MG Tamsulosin HCl (Flomax Cap) 0.4 mg BID PO 06/11/17 21:00 07/11/17 20:59 06/14/17 07:49 0.4 MG Tiotropium [place] (Spiriva Handihaler Inhaler) 1 puff DAILY INH 06/12/17 09:00 07/12/17 08:59 06/14/17 07:47 1 PUFF Pantoprazole Sodium (Protonix Tab) 40 mg QAM PO 06/12/17 09:00 07/12/17 08:59 06/14/17 07:48 40 MG Acetaminophen (Tylenol Tab) 650 mg Q6 PRN PO 06/11/17 12:45 07/11/17 12:44 06/14/17 07:47 650 MG Amiodarone HCl (Cordarone Tab) 200 mg DAILY PO 06/25/17 09:00 07/25/17 08:59 Piperacillin Sod/ Tazobactam Sod 3.375 gm/Dextrose 115 ml @ 28.75 mls/ hr Q8H IV 06/11/17 22:00 06/18/17 21:59 06/14/17 05:33 28.75 MLS/HR Piperacillin Sod/ Tazobactam Sod (Consult) 1 ea UD PRN N/A 06/11/17 13:15 07/11/17 13:14 Furosemide 20 mg/ Syringe 2 ml @ 4 mls/min BID IV 06/11/17 23:00 07/11/17 22:59 06/14/17 07:57 4 MLS/MIN Lorazepam (Ativan Tab) 0.5 mg TID PRN PO 06/11/17 18:00 07/11/17 17:59 06/13/17 22:28 0.5 MG Ioversol (Optiray 320) 125 ml UD PRN IV 06/12/17 09:15 06/16/17 09:14 Enteral Nutritional Formula (Boost Plus Vanilla) 1 can TID PO 06/12/17 21:00 07/12/17 20:59 06/14/17 07:57 1 CAN Tramadol HCl (Ultram Tab) 50 mg Q4H PRN PO 06/12/17 17:45 07/12/17 17:44 06/13/17 19:24 50 MG Atorvastatin Calcium (Lipitor Tab) 40 mg HS PO 06/13/17 21:00 07/11/17 20:59 06/13/17 21:12 40 MG Methylprednisolone Sodium Succinate 40 mg/Syringe 0.64 ml @ 1.5 mls/min BID IV 06/13/17 21:00 07/11/17 13:59 06/14/17 07:57 1.5 MLS/MIN Vital Signs: Date Time Temp Pulse Resp B/P (MAP) Pulse Ox O2 Delivery O2 Flow Rate FiO2 06/14/17 07:12 36.7 67 17 107/55 (72) 94 Nasal Cannula 2.0 06/14/17 06:58 67 16 99 Nasal Cannula 4.0 06/14/17 04:00 36.4 70 20 98/63 (75) 97 Nasal Cannula 4.0 06/14/17 04:00 Nasal Cannula 4.0 06/14/17 00:01 Nasal Cannula 4.0 06/14/17 00:00 36.5 73 20 107/62 (77) 99 Nasal Cannula 4.0 06/13/17 20:05 36.6 76 18 113/67 (82) 99 Nasal Cannula 4.0 06/13/17 20:00 Nasal Cannula 4.0 06/13/17 19:24 71 16 97 Nasal Cannula 4.0 06/13/17 16:00 Nasal Cannula 4.0 06/13/17 15:33 36.4 73 18 103/60 (74) 98 Nasal Cannula 4.0 06/13/17 14:35 67 16 98 Nasal Cannula 4.0 06/13/17 12:00 Nasal Cannula 4.0 06/13/17 11:11 36.7 73 16 109/8 (41) 97 Nasal Cannula 4.0 06/13/17 09:39 Nasal Cannula 4.0 Laboratory Results: Last 24 Hours Test 06/13/17 11:33 06/14/17 05:58 White Blood Count 13.36 K/uL 11.26 K/uL Red Blood Count 3.21 M/uL 3.08 M/uL Hemoglobin 9.6 g/dL 9.2 g/dL Hematocrit 29.8 % 28.5 % Mean Corpuscular Volume 92.8 fL 92.5 fL Mean Corpuscular Hemoglobin 29.9 pg 29.9 pg Mean Corpuscular Hemoglobin Concent 32.2 g/dl 32.3 g/dl RDW Standard Deviation 49.5 fL 50.4 fL RDW Coefficient of Variation 14.9 % 15.2 % Platelet Count 331 K/uL 314 K/uL Mean Platelet Volume 9.9 fL 9.9 fL Sodium Level 137 mmol/L 135 mmol/L Potassium Level 3.5 mmol/L 4.3 mmol/L Chloride Level 93 mmol/L 94 mmol/L Carbon Dioxide Level 38 mmol/L 39 mmol/L Anion Gap 6.0 mmol/L 2.0 mmol/L Blood Urea Nitrogen 24 mg/dl 27 mg/dl Creatinine 0.81 mg/dl 0.68 mg/dl Est Creatinine Clear Calc Drug Dose 48.5 ml/min 57.9 ml/min Estimated GFR () 100.1 107.5 Estimated GFR (Non- 86.3 92.8 BUN/Creatinine Ratio 29.0 39.3 Random Glucose 152 mg/dl 106 mg/dl Calcium Level 9.0 mg/dl 9.1 mg/dl Magnesium Level 1.9 mg/dl
--- NOTE | 2017-06-14 09:23 | Cardiology Follow-Up ---
Subjective General Date of Service: Jun 14, 2017. Chief Complaint: SOB Pt evaluation today including: conversation w/ patient, physical exam, chart review, lab review, review of studies, review of inpatient medication list History of Present Illness Patient seen and examined. No chest pain. Breathing better today compared to yesterday. Data: Telemetry: Currently sinus at 58 bpm with occasional PVC's in singles as well as short runs of nonsustained ventricular tachycardia (asymptomatic) March 17, 2017 cardiac catheterization with obstructive coronary artery disease including irregularities of the LM, mild to moderate LAD disease including a 70- 80% distal LAD lesion, ostial 80% LCX stenosis, and a large RCA with 30% disease throughout as well as a small posterolateral branch with 70% lesion. Ischemic cardiomyopathy with LVEF 20-25% Moderate to severe aortic stenosis. ISABEL 0.96 cm2, mean gradient 16.5 mmHg. Allergies Coded Allergies: No Known Allergies (Verified , 06/04/17) Social History Smoking Status: Current Every Day Smoker Hx Tobacco Use In Past Year?: Yes Hx Alcohol Use - Type And Amou: No Hx Substance Use - Type And Am: No Problem List Medical Problems: (1) Anemia Status: Chronic (2) Dehydration Status: Acute (3) Diarrhea Status: Acute (4) Elevated troponin Status: Acute (5) Generalized weakness Status: Acute (6) Hip hematoma, left Status: Acute (7) Hypoxia Status: Acute (8) Near syncope Status: Acute (9) Oxygen dependent Status: Acute (10) Postoperative seroma Status: Acute (11) Tobacco abuse Status: Acute Physical Exam Vital Signs Last Vital Signs Documentation Date Time Temp Pulse Resp B/P (MAP) Pulse Ox O2 Delivery O2 Flow Rate FiO2 06/14/17 07:12 36.7 67 17 107/55 (72) 94 Nasal Cannula 2.0 Physical Exam Constitutional: General Apperance: cachectic Level of Distress: acutely ill, chronically ill Psychiatric: Mental Status: active & alert, abnormal affect Orientation: to time, to place, to person Memory: recent memory normal, remote memory normal Head: normocephalic, atraumatic Eyes: EOM: EOMI Neck: pertinent finding (Normal JVP) Lungs: Respiratory effort: no dyspnea Auscultation: no wheezing, no rales/crackles, no rhonchi, deminished air movement, decreased breath sounds, pertinent finding (absent breath sounds at the bases laterally) Cardiovascular: Apical Impulse: not displaced Heart Auscultation: pertinent finding (Very distant heart sounds. Appears RRR. I could not appreciate a mumur. ) Peripheral Pulses: Radial Pulse: normal on the left, normal on the right Femoral Pulse: absent on the left Dorsalis Pedis Pulse: absent on the right Abdomen: Bowel Sounds: normal Inspection & Palpation: soft, non-distended, no tenderness, guarding & rebound, pertinent finding (L groin/hip hematoma) Extremities: no edema (on the right), clubbing Neurologic: Cranial Nerves: grossly intact Assessment and Plan Assessment and Plan Admission with acute on chronic severe obstructive lung disease exacerbation. Significant peripheral vascular disease status post left above the knee amputation Severe ischemic cardiomyopathy with severe left ventricular dysfunction, EF 20%. Moderately severe aortic stenosis Asymptomatic short runs of ventricular tachycardia Volume status is normovolemic to mildly hypovolemic. RECOMMENDATIONS: Discontinue IV furosemide Start oral furosemide in AM of 06/15/17 Conservative cardiac medical management appropriate and requested. Note: Atorvastatin decreased this admission (from 80 mg/day to 40 mg/day) as amiodarone can increase the serum concentration. CARDIOLOGY ATTENDING ADDENDUM: The patient was seen and personally examined. Agree with Pramod Issa PA-C's findings and plans as documented above with additions as noted below. Subjective: Patient states he was more short of breath at present. He recently had a bronchodilator therapy treatment but this did not help. Exam: Decreased breath sounds at bases, no wheezing Impression: As above Plan: was to transition to oral furosemide tomorrow, but now more SOB. He has multiple reasons to be short of breath, severe ischemic cardiomyopathy with severe LV systolic dysfunction, moderate severe aortic stenosis, anemia, severe underlying lung disease. At present, will give him a dose of furosemide 40 mg IV. Still pending transition him to oral furosemide tomorrow. Klaudia Cope DO Laboratory Results Last 24 Hours Test 06/13/17 11:33 06/14/17 05:58 White Blood Count 13.36 K/uL 11.26 K/uL Red Blood Count 3.21 M/uL 3.08 M/uL Hemoglobin 9.6 g/dL 9.2 g/dL Hematocrit 29.8 % 28.5 % Mean Corpuscular Volume 92.8 fL 92.5 fL Mean Corpuscular Hemoglobin 29.9 pg 29.9 pg Mean Corpuscular Hemoglobin Concent 32.2 g/dl 32.3 g/dl RDW Standard Deviation 49.5 fL 50.4 fL RDW Coefficient of Variation 14.9 % 15.2 % Platelet Count 331 K/uL 314 K/uL Mean Platelet Volume 9.9 fL 9.9 fL Sodium Level 137 mmol/L 135 mmol/L Potassium Level 3.5 mmol/L 4.3 mmol/L Chloride Level 93 mmol/L 94 mmol/L Carbon Dioxide Level 38 mmol/L 39 mmol/L Anion Gap 6.0 mmol/L 2.0 mmol/L Blood Urea Nitrogen 24 mg/dl 27 mg/dl Creatinine 0.81 mg/dl 0.68 mg/dl Est Creatinine Clear Calc Drug Dose 48.5 ml/min 57.9 ml/min Estimated GFR () 100.1 107.5 Estimated GFR (Non- 86.3 92.8 BUN/Creatinine Ratio 29.0 39.3 Random Glucose 152 mg/dl 106 mg/dl Calcium Level 9.0 mg/dl 9.1 mg/dl Magnesium Level 1.9 mg/dl
--- NOTE | 2017-06-14 10:06 | Progress Note ---
Progress Note Date of Service Jun 14, 2017. Progress Note Dr Baldwin spoke with surgeons at [facility] regarding pt's recent procedures. Hgb appears to have stabilized, no active bleeding noted on CT scan. No indications for vascular surgical intervention at this time. Please call if needed. Discussed with pt as well.
[2017-06-14] MEDS: TRAMADOL HCL 50 MG TAB PO PRN ×2 (13:38→20:06)
[2017-06-14] MEDS ORDERED: FUROSEMIDE INJ 20 MG in SYRINGE 0 ML IV SCH (15:30)
[2017-06-14] MEDS: LORAZEPAM 0.5 MG TAB PO PRN ×2 (15:32→22:05)
[2017-06-14] MEDS: GUAIFENESIN 600 MG TABCR PO SCH (16:51)
--- NOTE | 2017-06-14 18:40 | Progress Note ---
Internal Med Progress Note Date of Service: Jun 14, 2017. Provider Documentation: SUBJECTIVE: developed SOB with productive cough earlier ordered for Lasix by Cardiology seen pt at bed side after some time later feels much better , no respiratory distress noted mentions of having scan cough with brown /chocolate color feels like cough is stuck in his throat -not able to cough up asking for cough expectorant OBJECTIVE: Vital Signs-as noted below Exam: General-chronically ill appearing Eyes-sclera non icteric Neck-no JVD Lungs-diffuse wheeze in all lungs field Heart-regular Abdomen-soft, non tender Extremities-s/p Left AKA , rt lower ext -multiple scars form prior vascular procedure , no ankle edema Neuro-no focal deficit Lab data as noted below. ASSESSMENT & PLAN: This is a 77 year old male with a complex medical history, including CAD s/p stent in , severe COPD and chronic respiratory failure on 2L O2 continuously , severe ischemic cardiomyopathy with EF of ~ 20%, traumatic L lower leg amputation presents with worsening shortness of breath. SOB /Hypoxia -multifactorial COPD exacerbation /Acute on Chronic Respiratory Failure acute CHF decompensation with severe systolic dysfunction /ischemic cardiomyopathy -ordered for IV Lasix pulmonology following for COPD exacerbation , on IV Solu Medrol , severe emphysema on chronically on 2L of O2 continuously ordered for sputum cx Blood culture X2 negative on Zosyn empirically ( avoid Levaquin for prolong Qtc ) will change to Doxycycline PO -less vol overload due to IV Abx Ischemic Cardiomyopathy Acute on Chronic Systolic CHF, with EF ~ 20% given IV Lasix monitor vol status pt refused ICD placement in the past cont on Lasix and Aldactone Cardiology following Elevated Troponin in the setting of CAD denies any chest pain elevated troponin likely from ischemia from COPD as well as CHF exacerbation stent placed in 1996 Plavix recently stopped at [employer]; cont. Toprol XL 12.5mg BID, and high intensity statin aspirin on hold due to anemia/left groin hematoma L groin hematoma/seroma s/p recent vascular procedure with excision of seroma in left groin appreciate in put form Vascular surgery team no active bleeding noted at the surgical site no further surgical intervention needed ANEMIA possible due to above S/P 1 unit pRBC Hbg remains stable ~ 10 DVT ppx scd and teds DNR DISPOSITION to be determined PT/OT eval will benefit with rehab Vital Signs: Date Time Temp Pulse Resp B/P (MAP) Pulse Ox O2 Delivery O2 Flow Rate FiO2 06/14/17 16:00 96 Nasal Cannula 2.0 06/14/17 15:07 36.7 85 18 116/71 (86) 97 Nasal Cannula 4.0 06/14/17 15:03 36.6 85 17 118/73 (88) 97 Nasal Cannula 4.0 06/14/17 14:13 74 16 98 Nasal Cannula 4.0 06/14/17 12:00 95 Nasal Cannula 4.0 06/14/17 11:29 36.5 59 19 107/63 (78) 100 Nasal Cannula 4.0 06/14/17 08:00 94 Nasal Cannula 2.0 06/14/17 07:12 36.7 67 17 107/55 (72) 94 Nasal Cannula 2.0 06/14/17 06:58 67 16 99 Nasal Cannula 4.0 06/14/17 04:00 36.4 70 20 98/63 (75) 97 Nasal Cannula 4.0 06/14/17 04:00 Nasal Cannula 4.0 06/14/17 00:01 Nasal Cannula 4.0 06/14/17 00:00 36.5 73 20 107/62 (77) 99 Nasal Cannula 4.0 06/13/17 20:05 36.6 76 18 113/67 (82) 99 Nasal Cannula 4.0 06/13/17 20:00 Nasal Cannula 4.0 06/13/17 19:24 71 16 97 Nasal Cannula 4.0 Lab Results: Results Past 24 Hours Test 06/14/17 05:58 Range/Units White Blood Count 11.26 4.8-10.8 K/uL Red Blood Count 3.08 4.7-6.1 M/uL Hemoglobin 9.2 14.0-18.0 g/dL Hematocrit 28.5 42-52 % Mean Corpuscular Volume 92.5 80-100 fL Mean Corpuscular Hemoglobin 29.9 25-34 pg Mean Corpuscular Hemoglobin Concent 32.3 32-36 g/dl RDW Standard Deviation 50.4 36.4-46.3 fL RDW Coefficient of Variation 15.2 11.5-14.5 % Platelet Count 314 130-400 K/uL Mean Platelet Volume 9.9 7.4-10.4 fL Sodium Level 135 136-145 mmol/L Potassium Level 4.3 3.5-5.1 mmol/L Chloride Level 94 98-107 mmol/L Carbon Dioxide Level 39 21-32 mmol/L Anion Gap 2.0 3-11 mmol/L Blood Urea Nitrogen 27 7-18 mg/dl Creatinine 0.68 0.60-1.40 mg/dl Est Creatinine Clear Calc Drug Dose 57.9 ml/min Estimated GFR () 107.5 Estimated GFR (Non- 92.8 BUN/Creatinine Ratio 39.3 10-20 Random Glucose 106 70-99 mg/dl Calcium Level 9.1 8.5-10.1 mg/dl
[2017-06-14] MEDS: DOXYCYCLINE HYCLATE 100 MG CAP PO SCH (21:30)
[2017-06-14] MEDS: ATORVASTATIN 40 MG TAB PO SCH (21:31)
[2017-06-15] VITALS (13 sets, daily range): BP systolic 110–126; BP diastolic 62–68; PULSE 71–78; TEMP 36.6–37.1; O2SAT 91–99
[2017-06-15] MEDS: LEVALBUTEROL 0.63MG/3 ML NEB INH SCH ×4 (02:07→19:54)
[2017-06-15] MEDS: GABAPENTIN 100 MG CAP PO SCH ×3 (06:00→22:01)
[2017-06-15 06:21] LABS: CREATININE 0.62 mg/dl (0.60-1.40)
[2017-06-15] MEDS: IPRATROPIUM BROMIDE NEB SOLN 0.02% 2.5 ML VIAL INH SCH ×3 (07:10→23:20)
[2017-06-15] MEDS: TAMSULOSIN HCL 0.4 MG CAP PO SCH ×2 (08:42→20:09)
[2017-06-15] MEDS: FINASTERIDE 5 MG TAB PO SCH (08:42)
[2017-06-15] MEDS: MAGNESIUM OXIDE 400 MG TAB PO SCH (08:43)
[2017-06-15] MEDS: SPIRONOLACTONE 25 MG TAB PO SCH (08:43)
[2017-06-15] MEDS: POTASSIUM CHLORIDE 20 MEQ TABCR PO SCH (08:44)
[2017-06-15] MEDS: FUROSEMIDE 40 MG TAB PO SCH (08:44)
[2017-06-15] MEDS: DOXYCYCLINE HYCLATE 100 MG CAP PO SCH ×2 (08:45→20:11)
[2017-06-15] MEDS: GUAIFENESIN 600 MG TABCR PO SCH ×2 (08:45→20:11)
[2017-06-15] MEDS: AMIODARONE 200 MG TAB PO SCH ×2 (08:46→20:10)
[2017-06-15] MEDS: DOCUSATE SODIUM 100 MG CAP PO SCH (08:46)
[2017-06-15] MEDS: FERROUS SULFATE 325 MG TAB PO SCH (08:47)
[2017-06-15] MEDS: METOPROLOL SUCC 25MG EXT REL TAB PO SCH ×2 (08:48→20:12)
[2017-06-15] MEDS: PANTOprazole SOD 40 MG TAB PO SCH (08:49)
[2017-06-15] MEDS: METHYLPREDNISOLONE IV 40 MG in SYRINGE 0 ML IV SCH ×2 (08:49→20:08)
[2017-06-15] MEDS: FLUTICASONE/SALMETEROL 250/50 (ADVAIR) 14 PUFF/1 INHALER INH SCH ×2 (08:50→20:07)
[2017-06-15] MEDS: TIOTROPIUM BROMIDE 5 PUFF/90 MCG INH INH SCH (08:51)
[2017-06-15] MEDS: BOOST PLUS VANILLA PO SCH ×6 (08:51→20:08)
--- NOTE | 2017-06-15 09:28 | Cardiology Follow-Up ---
Subjective General Date of Service: Jun 15, 2017. Chief Complaint: SOB Pt evaluation today including: conversation w/ patient, physical exam, chart review, lab review, review of studies, review of inpatient medication list History of Present Illness Patient seen and examined. + Cough, unable to expectorate. Chest congestion. Intermittent dyspnea. No chest pain. No palpitations. No right lower extremity edema. Data: Telemetry: Currently sinus at 68 bpm with occasional PVC's in singles, a few couplets, and one four beat VPC run on 06/14 at 11:24:17. March 17, 2017 cardiac catheterization with obstructive coronary artery disease including irregularities of the LM, mild to moderate LAD disease including a 70- 80% distal LAD lesion, ostial 80% LCX stenosis, and a large RCA with 30% disease throughout as well as a small posterolateral branch with 70% lesion. Ischemic cardiomyopathy with LVEF 20-25% Moderate to severe aortic stenosis. ISABEL 0.96 cm2, mean gradient 16.5 mmHg. Allergies Coded Allergies: No Known Allergies (Verified , 06/04/17) Social History Smoking Status: Current Every Day Smoker Hx Tobacco Use In Past Year?: Yes Hx Alcohol Use - Type And Amou: No Hx Substance Use - Type And Am: No Problem List Medical Problems: (1) Anemia Status: Chronic (2) Dehydration Status: Acute (3) Diarrhea Status: Acute (4) Elevated troponin Status: Acute (5) Generalized weakness Status: Acute (6) Hip hematoma, left Status: Acute (7) Hypoxia Status: Acute (8) Near syncope Status: Acute (9) Oxygen dependent Status: Acute (10) Postoperative seroma Status: Acute (11) Tobacco abuse Status: Acute Physical Exam Vital Signs Last Vital Signs Documentation Date Time Temp Pulse Resp B/P (MAP) Pulse Ox O2 Delivery O2 Flow Rate FiO2 06/15/17 07:31 36.8 72 20 125/67 (86) 98 Nasal Cannula 4.0 Physical Exam Constitutional: General Apperance: cachectic Level of Distress: acutely ill, chronically ill Psychiatric: Mental Status: active & alert, abnormal affect Orientation: to time, to place, to person Memory: recent memory normal, remote memory normal Head: normocephalic, atraumatic Eyes: EOM: EOMI Neck: pertinent finding (Neck veins are flat. ) Lungs: Respiratory effort: no dyspnea Auscultation: no rales/crackles, deminished air movement, decreased breath sounds, expiratory wheezing, rhonchi Cardiovascular: Apical Impulse: not displaced Heart Auscultation: pertinent finding (Very distant heart sounds. Appears RRR. I could not appreciate a mumur. ) Peripheral Pulses: Radial Pulse: normal on the left, normal on the right Femoral Pulse: absent on the left Dorsalis Pedis Pulse: absent on the right Abdomen: Bowel Sounds: normal Inspection & Palpation: soft, non-distended, no tenderness, guarding & rebound, pertinent finding (L groin/hip hematoma) Extremities: no edema (on the right), clubbing Neurologic: Cranial Nerves: grossly intact Assessment and Plan Assessment and Plan Admission with acute on chronic severe obstructive lung disease exacerbation. Significant peripheral vascular disease status post left above the knee amputation Severe ischemic cardiomyopathy with severe left ventricular dysfunction, EF 20%. Moderate, likely severe aortic stenosis Asymptomatic short runs of ventricular tachycardia Volume status appears normovolemic RECOMMENDATIONS: Continue as prescribed. Conservative cardiac medical management appropriate and requested. Please call with any questions or concerns. CARDIOLOGY ATTENDING ADDENDUM: The patient was seen and personally examined. Agree with Pramod Issa PA-C's findings and plans as documented above with additions as noted below. S: breathing improved today. telemetry findings as above with occasional PVCs and 3 beat salvos of NSVT. Ex: lungs improved, mild course BS at R apex Impression: as noted above. Plan: pt felt better after IV furosemide yesterday, Will transition to PO furosemide. Continue low dose metoprolol and amiodarone. Iggy Cope DO Laboratory Results Last 24 Hours Test 06/15/17 05:37 Creatinine 0.62 mg/dl Est Creatinine Clear Calc Drug Dose 63.2 ml/min Estimated GFR () 111.7 Estimated GFR (Non- 96.4
[2017-06-15] MEDS: TRAMADOL HCL 50 MG TAB PO PRN ×3 (09:49→20:17)
[2017-06-15] MEDS ORDERED: NYSTATIN SUSP 500,000 U/5 ML UDC PO ONE (12:00)
[2017-06-15] MEDS: NYSTATIN SUSP 500,000 U/5 ML UDC PO SCH ×3 (15:31→20:10)
--- NOTE | 2017-06-15 19:14 | Progress Note ---
Internal Med Progress Note Date of Service: Jun 15, 2017. Provider Documentation: SUBJECTIVE: breathing much better today cough has improved , denies of any SOB or discomfort asking when he can be discharged home OBJECTIVE: Vital Signs-as noted below Exam: General-chronically ill appearing Eyes-sclera non icteric Neck-no JVD Lungs-diffuse wheeze in all lungs field Heart-regular Abdomen-soft, non tender Extremities-s/p Left AKA , rt lower ext -multiple scars form prior vascular procedure , no ankle edema Neuro-no focal deficit Lab data as noted below. ASSESSMENT & PLAN: This is a 77 year old male with a complex medical history, including CAD s/p stent in , severe COPD and chronic respiratory failure on 2L O2 continuously , severe ischemic cardiomyopathy with EF of ~ 20%, traumatic L lower leg amputation presents with worsening shortness of breath. SOB /Hypoxia -multifactorial COPD exacerbation /Acute on Chronic Respiratory Failure acute CHF decompensation with severe systolic dysfunction /ischemic cardiomyopathy -symptoms has improved today pulmonology following for COPD exacerbation , started on PO Prednisone severe emphysema at baseline on chronically on 2L of O2 continuously ordered for sputum cx Blood culture X2 negative on PO Doxycycline Ischemic Cardiomyopathy Acute on Chronic Systolic CHF, with EF ~ 20% symptomatically improved monitor vol status pt refused ICD placement in the past cont on Lasix and Aldactone Cardiology following Elevated Troponin in the setting of CAD denies any chest pain elevated troponin likely from ischemia from COPD as well as CHF exacerbation stent placed in 1996 Plavix recently stopped at [facility]; cont. Toprol XL 12.5mg BID, and high intensity statin aspirin on hold due to anemia/left groin hematoma L groin hematoma/seroma s/p recent vascular procedure with excision of seroma in left groin appreciate in put form Vascular surgery team no active bleeding noted at the surgical site no further surgical intervention needed ANEMIA possible due to above S/P 1 unit pRBC Hbg remains stable ~ 10 DVT ppx scd and teds DNR DISPOSITION PT/OT eval pt wants to return home with home health ' has health aids need to return to [facility] in 2 weeks for follow up with vascular surgery Vital Signs: Date Time Temp Pulse Resp B/P (MAP) Pulse Ox O2 Delivery O2 Flow Rate FiO2 06/15/17 20:06 36.6 73 17 112/67 (82) 95 Nasal Cannula 2.0 06/15/17 19:55 78 16 91 Nasal Cannula 2.5 06/15/17 16:00 95 Nasal Cannula 2.0 06/15/17 15:16 36.7 75 16 121/62 (81) 94 Room Air 06/15/17 14:04 76 16 97 Nasal Cannula 4.0 06/15/17 12:00 Nasal Cannula 2.0 06/15/17 11:17 36.7 72 20 126/63 (84) 94 Nasal Cannula 2.0 06/15/17 10:18 98 Nasal Cannula 4.0 06/15/17 07:31 36.8 72 20 125/67 (86) 98 Nasal Cannula 4.0 06/15/17 07:10 76 16 97 Nasal Cannula 4.0 06/15/17 04:00 Nasal Cannula 4.0 06/15/17 03:50 37.1 71 18 116/62 (80) 97 Nasal Cannula 4.0 06/15/17 00:17 36.7 75 18 110/68 (82) 99 Nasal Cannula 4.0 06/15/17 00:01 Nasal Cannula 4.0 Lab Results: Results Past 24 Hours Test 06/15/17 05:37 Range/Units Creatinine 0.62 0.60-1.40 mg/dl Est Creatinine Clear Calc Drug Dose 63.2 ml/min Estimated GFR () 111.7 Estimated GFR (Non- 96.4 Microbiology Results 06/15/17 MRSA DNA Surveillance Screen - Final, Complete Specimen Negative for MRSA by DNA Probe 06/15/17 Gram Stain - Final, Resulted 06/15/17 Sputum Culture, Resulted Pending
[2017-06-15] MEDS: ATORVASTATIN 40 MG TAB PO SCH (20:10)
[2017-06-16] VITALS (14 sets, daily range): BP systolic 104–126; BP diastolic 54–65; PULSE 70–76; TEMP 36.6–36.9; O2SAT 88–99
[2017-06-16] MEDS: LEVALBUTEROL 0.63MG/3 ML NEB INH SCH ×4 (02:00→19:08)
[2017-06-16] MEDS: TRAMADOL HCL 50 MG TAB PO PRN ×4 (03:05→18:00)
[2017-06-16] MEDS: GABAPENTIN 100 MG CAP PO SCH ×3 (06:24→21:00)
[2017-06-16] MEDS: IPRATROPIUM BROMIDE NEB SOLN 0.02% 2.5 ML VIAL INH SCH ×3 (07:04→19:08)
[2017-06-16 07:31] LABS: CREATININE 0.63 mg/dl (0.60-1.40)
[2017-06-16] MEDS: TIOTROPIUM BROMIDE 5 PUFF/90 MCG INH INH SCH (07:34)
[2017-06-16] MEDS: FLUTICASONE/SALMETEROL 250/50 (ADVAIR) 14 PUFF/1 INHALER INH SCH ×2 (07:34→21:00)
[2017-06-16] MEDS: DOCUSATE SODIUM 100 MG CAP PO SCH (07:36)
[2017-06-16] MEDS: POTASSIUM CHLORIDE 20 MEQ TABCR PO SCH (07:36)
[2017-06-16] MEDS: NYSTATIN SUSP 500,000 U/5 ML UDC PO SCH ×4 (07:36→21:02)
[2017-06-16] MEDS: DOXYCYCLINE HYCLATE 100 MG CAP PO SCH ×2 (07:37→21:01)
[2017-06-16] MEDS: FERROUS SULFATE 325 MG TAB PO SCH (07:37)
[2017-06-16] MEDS: GUAIFENESIN 600 MG TABCR PO SCH ×2 (07:37→21:03)
[2017-06-16] MEDS: AMIODARONE 200 MG TAB PO SCH ×2 (07:37→21:02)
[2017-06-16] MEDS: PANTOprazole SOD 40 MG TAB PO SCH (07:37)
[2017-06-16] MEDS: MAGNESIUM OXIDE 400 MG TAB PO SCH (07:37)
[2017-06-16] MEDS: FINASTERIDE 5 MG TAB PO SCH (07:38)
[2017-06-16] MEDS: FUROSEMIDE 40 MG TAB PO SCH (07:39)
[2017-06-16] MEDS: SPIRONOLACTONE 25 MG TAB PO SCH (07:39)
[2017-06-16] MEDS: TAMSULOSIN HCL 0.4 MG CAP PO SCH ×2 (07:40→21:03)
[2017-06-16] MEDS: BOOST PLUS VANILLA PO SCH ×6 (07:48→21:00)
[2017-06-16] MEDS: METOPROLOL SUCC 25MG EXT REL TAB PO SCH ×2 (07:59→21:01)
--- NOTE | 2017-06-16 13:57 | PROGRESS NOTE ---
DATE: 06/16/2017 PROBLEM LIST: Includes: 1. Severe COPD which is oxygen dependent. 2. Cardiomyopathy. 3. Possible aspiration. SUBJECTIVE: The patient reports that he is doing better today, would like to go home today. He states that his breathing is pretty much back to his usual level. He states that he does follow up with physician from [facility] and pulmonology. He denies any difficulty with his breathing at present. He states that earlier today, he had nebulizer treatment, then worked with physical therapy and after that he became short of breath and a little bit tight and they did turn his oxygen up to 3 liters. I did speak with the nurse on duty. He reports the same events. He denies any other concerns or problems. No chest pain. No chest pressure. He states again that his breathing is pretty much his baseline. He does have an occasional cough, not really getting much mucus up. We did discuss a flutter valve and he states he does have one at home and does not wish to have one at present. No nausea or vomiting, no indigestion or heartburn. OBJECTIVE: GENERAL: The patient is a 77-year-old male, lying in bed in no acute distress. No respiratory distress, able to complete sentences without difficulty. He is interactive and cooperative, does appear to be alert and oriented. VITAL SIGNS: Temp 36.8, pulse 72, respirations 16, blood pressure is 114/64, pulse ox 99% on 3 liters. HEENT: Normocephalic, atraumatic. Pupils equal, round and reactive to light and accommodation. Extraocular movements are intact. Vamo moist gingival and buccal mucosa. NECK: Supple. No mass. No adenopathy. No bruit. CHEST: The patient did have very faint expiratory wheeze in the upper chest anteriorly. When auscultating posteriorly, no wheeze is appreciated. No rale or rhonchi noted. CARDIOVASCULAR: Regular rate and rhythm. No murmurs, gallops or rubs. ABDOMEN: Bowel sounds present. Abdomen soft, nontender. No guarding, rigidity or organomegaly. EXTREMITIES: The patient has a left AKA. Right extremity, no erythema or edema. No new lab or imaging data. IMPRESSION: This is a 77-year-old male with known chronic obstructive pulmonary disease which is oxygen dependent, who has shortness of breath which is multifactorial, has had some hypoxia. At this point, he seems to be stabilizing and seems to be relatively back to his normal level, according to him. He is back on his normal dose of oxygen which is 2 liters. Lung sounds are fairly unremarkable. At this point, I did discuss the case with the hospitalist, Dr. Chapa and from a pulmonary standpoint, the patient is doing well. Hospitalist service plans on discharging the patient home today with help at home. This was discussed with the patient and he does have a followup appointment with his packaging sales representative at the end of the month. Therefore, we will recommend that he continue this, would recommend a slow prednisone taper, tapering by 5 mg every 2 days. Otherwise, continue his pulmonary regimen as currently is. At this time pulmonary will sign off please contact the team with issues arise. DG
--- NOTE | 2017-06-16 18:34 | Progress Note ---
Internal Med Progress Note Date of Service: Jun 16, 2017. Provider Documentation: SUBJECTIVE: had episode of hypoxia earlier today required 4 L 02 episode has resolved. on 2 L 02 . with adequate saturation -baseline denies cough , SOB or Orthopnea has CASAS aware that as per PT/OT -recommendation was to go to rehab[facility] as pt found to be in very poor functional status , high fall risk to return home for independent living alone pt declined to go to rehab ( was in [facility] in past -did not make any difference ) want to return home , has home health visiting nurse , home economics expert willing for Home PT plan to discharge pt home today with above support if respiratory status remains stable OBJECTIVE: Vital Signs-as noted below Exam: General-chronically ill appearing Eyes-sclera non icteric Neck-no JVD Lungs-much better today , no wheeze or rales noted Heart-regular Abdomen-soft, non tender Extremities-s/p Left AKA , rt lower ext -multiple scars form prior vascular procedure , no ankle edema Neuro-no focal deficit Lab data as noted below. ASSESSMENT & PLAN: This is a 77 year old male with a complex medical history, including CAD s/p stent in , severe COPD and chronic respiratory failure on 2L O2 continuously , severe ischemic cardiomyopathy with EF of ~ 20%, traumatic L lower leg amputation presents with worsening shortness of breath. SOB /Hypoxia -multifactorial COPD exacerbation /Acute on Chronic Respiratory Failure acute CHF decompensation with severe systolic dysfunction /ischemic cardiomyopathy -symptoms continues to improve pulmonology following for COPD exacerbation , started on PO Prednisone D/w Pulmonology will need prolong taper on discharge severe emphysema at baseline on chronically on 2L of O2 continuously schedule to see Pulmonology at [facility] today Ischemic Cardiomyopathy Acute on Chronic Systolic CHF, with EF ~ 20% symptomatically improved monitor vol at baseline pt refused ICD placement in the past pt will be continued on Lasix and Aldactone Cardiology following Elevated Troponin in the setting of CAD denies any chest pain elevated troponin likely from ischemia from COPD as well as CHF exacerbation stent placed in 1996 Plavix recently stopped at [facility]; cont. Toprol XL 12.5mg BID, and high intensity statin aspirin on hold due to anemia/left groin hematoma both antiplatelets will be resumed on discharge pt has follow up with vascular with [facility] 2 weeks L groin hematoma/seroma s/p recent vascular procedure with excision of seroma in left groin appreciate in put form Vascular surgery team no active bleeding noted at the surgical site no further surgical intervention needed pt has follow up with vascular with [facility] in 2 weeks ANEMIA possible due to above S/P 1 unit pRBC Hbg remains stable ~ 10 DVT ppx scd and teds DNR DISPOSITION PT/OT eval appreciated refused to go to rehab wants to return home son lives close by Medicine follow up with Dr Hinton follows with Pulmonology at [facility] Scheduled to have follow up at [facility] in 2 weeks with vascular surgery Vital Signs: Date Time Temp Pulse Resp B/P (MAP) Pulse Ox O2 Delivery O2 Flow Rate FiO2 06/17/17 08:30 Nasal Cannula 2.0 06/17/17 07:56 36.9 74 18 110/61 (77) 93 Nasal Cannula 2.0 06/17/17 06:58 72 16 98 Nasal Cannula 2.0 06/17/17 01:59 78 16 96 Nasal Cannula 2.0 06/17/17 00:30 Nasal Cannula 2.0 06/17/17 00:10 36.6 73 18 109/60 (76) 95 Nasal Cannula 2.0 06/16/17 20:09 36.6 75 18 104/54 (71) 91 Nasal Cannula 2.0 06/16/17 20:00 92 Nasal Cannula 2.0 06/16/17 19:09 73 16 96 Nasal Cannula 2.0 06/16/17 16:05 36.9 73 14 109/57 (74) 93 06/16/17 16:00 96 Nasal Cannula 2.0 06/16/17 15:55 95 Nasal Cannula 2.0 06/16/17 14:37 36.9 70 14 126/64 (84) 95 06/16/17 14:32 72 15 95 Nasal Cannula 2.0 06/16/17 12:00 Nasal Cannula 2.0 Lab Results:
[2017-06-16] MEDS: ATORVASTATIN 40 MG TAB PO SCH (21:04)
[2017-06-17 00:10] VITALS: BP 109/60; PULSE 73; TEMP 36.6; O2SAT 95
[2017-06-17] MEDS: TRAMADOL HCL 50 MG TAB PO PRN ×4 (01:46→13:58)
[2017-06-17 01:59] VITALS: PULSE 78; O2SAT 96
[2017-06-17] MEDS: LEVALBUTEROL 0.63MG/3 ML NEB INH SCH ×3 (01:59→14:15)
[2017-06-17] MEDS: GABAPENTIN 100 MG CAP PO SCH ×2 (05:53→13:55)
[2017-06-17] MEDS: FLUTICASONE/SALMETEROL 250/50 (ADVAIR) 14 PUFF/1 INHALER INH SCH (05:54)
[2017-06-17 06:58] VITALS: PULSE 72; O2SAT 98
[2017-06-17] MEDS: IPRATROPIUM BROMIDE NEB SOLN 0.02% 2.5 ML VIAL INH SCH ×2 (06:58→14:15)
[2017-06-17 07:56] VITALS: BP 110/61; PULSE 74; TEMP 36.9; O2SAT 93
[2017-06-17] MEDS: BOOST PLUS VANILLA PO SCH ×4 (08:52→13:54)
[2017-06-17] MEDS: PANTOprazole SOD 40 MG TAB PO SCH (08:53)
[2017-06-17] MEDS: DOXYCYCLINE HYCLATE 100 MG CAP PO SCH (08:53)
[2017-06-17] MEDS: DOCUSATE SODIUM 100 MG CAP PO SCH (08:53)
[2017-06-17] MEDS: METOPROLOL SUCC 25MG EXT REL TAB PO SCH (08:53)
[2017-06-17] MEDS: AMIODARONE 200 MG TAB PO SCH (08:53)
[2017-06-17] MEDS: TAMSULOSIN HCL 0.4 MG CAP PO SCH (08:54)
[2017-06-17] MEDS: POTASSIUM CHLORIDE 20 MEQ TABCR PO SCH (08:54)
[2017-06-17] MEDS: FINASTERIDE 5 MG TAB PO SCH (08:54)
[2017-06-17] MEDS: MAGNESIUM OXIDE 400 MG TAB PO SCH (08:54)
[2017-06-17] MEDS: FUROSEMIDE 40 MG TAB PO SCH (08:54)
[2017-06-17] MEDS: GUAIFENESIN 600 MG TABCR PO SCH (08:54)
[2017-06-17] MEDS: FERROUS SULFATE 325 MG TAB PO SCH (08:55)
[2017-06-17] MEDS: NYSTATIN SUSP 500,000 U/5 ML UDC PO SCH ×2 (08:55→13:55)
[2017-06-17] MEDS: SPIRONOLACTONE 25 MG TAB PO SCH (08:55)
[2017-06-17] MEDS: TIOTROPIUM BROMIDE 5 PUFF/90 MCG INH INH SCH (09:58)
[2017-06-17] MEDS ORDERED: NYSS5 PO (11:06)
--- NOTE | 2017-06-17 11:14 | Discharge Instructions ---
Discharge Instructions Date of Service Jun 17, 2017. Admission Reason for Admission: Copd Exacerbation,Elevated Troponin Discharge Discharge Diagnosis / Problem: ACUTE ON CHRONIC HYPOXEMIC RESPIRATORY FAILUE / CHF SYSTOLIC DYSFUNCTION Discharge Goals Goal(s): Decrease discomfort, Improve disease control, Diagnostic testing, Therapeutic intervention Activity Recommendations Activity Limitations: as noted below ( TOLERATED ) . Instructions / Follow-Up Instructions / Follow-Up HOSPITAL FOLLOW UP : 06/21/2017 1:00 PM Andrew Hinton MD General Internal Medicine [facility] FOLLOW UP AT [facility] PER SCHEDULE Call your Primary Care doctor if any of the following symptoms or problems start or get worse: * Shortness of breath or difficulty breathing * Wake up at night short of breath * Chest pain * Cough * Swelling of your hands, feet, or legs * More fatigued or tired with your normal activity * Palpitations - sudden fast heart beats WEIGHT * Weigh yourself every morning after using the bathroom. * Use the same scale. * Wear the same amount of clothing. * Write your weight down on a chart. * Call your Primary Care doctor if you gain more than 2-3 pounds in 1-2 days. MEDICATIONS * Use this discharge instruction sheet for medication instructions. * Take your medications at the time your doctor ordered. * Do not skip a dose of your medicines. * If you miss a dose of medicine, take it as soon as possible, but DO NOT DOUBLE A DOSE. * Read your medicine information when you get home. * Know all of the side effects of your medicine. If in doubt, ask your pharmacist * Call your Primary Care doctor's office if you have any side effects. * Be sure all of your doctors know what medicine and herbs you take (including cold, flu, and herbal medicine). Take the following with you to your follow-up doctor appointments: * Weight Chart * Medication List * List of questions Do not drink excessive alcohol, beer or wine. Current Hospital Diet Patient's current hospital diet: Regular Diet Discharge Diet Recommended Diet: AHA Diet (Heart Healthy), Low Sodium Diet (2gm Na) Pending Studies Studies pending at discharge: no Medical Emergencies . Who to Call and When: Call 911 or go to the Emergency Room if: * If at any time you feel your situation is an emergency * You have tightness or pain in your chest that does not go away with rest or Nitroglycerin * You are very short of breath even with rest . Non-Emergent Contact Non-Emergency issues call your: Primary Care Provider . . "Provider Documentation" section prepared by Vita Chapa. . VTE Core Measure Inpt VTE Proph given/why not?: Jesus Stockings, SCD's
[2017-06-17] MEDS ORDERED: GFNSR600 PO (11:24)
[2017-06-17 14:08] VITALS: BP 110/61; PULSE 74; TEMP 36.9; O2SAT 93
[2017-06-17 14:16] VITALS: PULSE 76; O2SAT 97
[2017-06-17] MEDS ORDERED: ULT50X PO (14:40)
--- NOTE | 2017-06-17 14:42 | Progress Note ---
Internal Med Progress Note Date of Service: Jun 17, 2017. Provider Documentation: SUBJECTIVE: does not have any pain or discomfort no SOB minimum cough feels like his baseline stable to be discharged home OBJECTIVE: Vital Signs-as noted below Exam: General-chronically ill appearing Eyes-sclera non icteric Neck-no JVD Lungs-much better today , no wheeze or rales noted Heart-regular Abdomen-soft, non tender Extremities-s/p Left AKA , rt lower ext -multiple scars form prior vascular procedure , no ankle edema Neuro-no focal deficit Lab data as noted below. ASSESSMENT & PLAN: This is a 77 year old male with a complex medical history, including CAD s/p stent in , severe COPD and chronic respiratory failure on 2L O2 continuously , severe ischemic cardiomyopathy with EF of ~ 20%, traumatic L lower leg amputation presents with worsening shortness of breath. SOB /Hypoxia -multifactorial COPD exacerbation /Acute on Chronic Respiratory Failure acute CHF decompensation with severe systolic dysfunction /ischemic cardiomyopathy -symptoms continues to improve pulmonology following for COPD exacerbation , started on PO Prednisone D/w Pulmonology will need prolong taper on discharge severe emphysema at baseline on chronically on 2L of O2 continuously schedule to see Pulmonology at [facility] stable to be discharged home today Ischemic Cardiomyopathy Acute on Chronic Systolic CHF, with EF ~ 20% symptomatically improved monitor vol at baseline pt refused ICD placement in the past pt will be continued on Lasix and Aldactone Cardiology following Elevated Troponin in the setting of CAD denies any chest pain elevated troponin likely from ischemia from COPD as well as CHF exacerbation stent placed in 1996 Plavix recently stopped at [facility]; cont. Toprol XL 12.5mg BID, and high intensity statin aspirin on hold due to anemia/left groin hematoma both antiplatelets will be resumed on discharge pt has follow up with vascular with [facility] in 2 weeks L groin hematoma/seroma s/p recent vascular procedure with excision of seroma in left groin appreciate in put form Vascular surgery team no active bleeding noted at the surgical site no further surgical intervention needed pt has follow up with vascular with [facility] in 2 weeks ANEMIA possible due to above S/P 1 unit pRBC Hbg remains stable ~ 10 DVT ppx scd and teds DNR DISPOSITION PT/OT linus appreciated refused to go to rehab wants to return home son lives close by pt is discharged home today Medicine follow up with Dr Hinton follows with Pulmonology at [facility] Scheduled to have follow up at [facility] in 2 weeks with vascular surgery Vital Signs: Date Time Temp Pulse Resp B/P (MAP) Pulse Ox O2 Delivery O2 Flow Rate FiO2 06/17/17 14:16 76 16 97 Nasal Cannula 3.0 06/17/17 14:08 36.9 74 18 93 Nasal Cannula 06/17/17 08:30 Nasal Cannula 2.0 06/17/17 07:56 36.9 74 18 110/61 (77) 93 Nasal Cannula 2.0 06/17/17 06:58 72 16 98 Nasal Cannula 2.0 06/17/17 01:59 78 16 96 Nasal Cannula 2.0 06/17/17 00:30 Nasal Cannula 2.0 06/17/17 00:10 36.6 73 18 109/60 (76) 95 Nasal Cannula 2.0 06/16/17 20:09 36.6 75 18 104/54 (71) 91 Nasal Cannula 2.0 06/16/17 20:00 92 Nasal Cannula 2.0 06/16/17 19:09 73 16 96 Nasal Cannula 2.0 06/16/17 16:05 36.9 73 14 109/57 (74) 93 06/16/17 16:00 96 Nasal Cannula 2.0 06/16/17 15:55 95 Nasal Cannula 2.0
[2017-06-17] MEDS ORDERED: PRED20TA2 PO (14:44)
--- NOTE | 2017-06-17 14:46 | Discharge Summary ---
Discharge Summary Date of Service Jun 17, 2017. Discharge Summary Admission Date: Jun 11, 2017 at 11:27 Discharge Date: Jun 17, 2017 Discharge Disposition: Home with services Principal Diagnosis: ACUTE ON CHRONIC HYPOXEMIC RESPIRATORY FAILURE /CHF SYSTOLIC DYSFUNCTION Procedures: CT ABDOMINAL PELVIS WITH CONTRAST : IMPRESSION: 1. Large bilobed hematoma in the left inguinal region with intramuscular hematoma within the left psoas muscle. 2. 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 3. Cardiomegaly. 4. Small to moderate right and trace left pleural effusions. 5. Passive atelectasis in the right lower lobe. 6. Groundglass opacities in the left lower lobe and inferior lingula raise concern for an infectious process superimposed on emphysema. 7. Infrarenal abdominal aortic aneurysm measuring up to 3.8 cm in transverse dimension, unchanged since 2016. 8. Patent right aortofemoral bypass graft. 9. 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 10. Enlarged left paraaortic lymph nodes, nonspecific and possibly reactive. The report will be called/faxed according to standard departmental protocol. Consultations: PULMONOLOGY CARDIOLOGY VASCULAR SURGERY Medication Reconciliation New Medications: Prednisone (Prednisone Tab) 20 Mg Tab 2 TAB PO UD for 10 Days, #60 TAB 40 mg daily x3 30 mg daily x3 20 mg daily x3 10 mg daily x1 Guaifenesin Ext Rel (Mucinex Ext Rel) 600 Mg Tabcr 600 MG PO Q12 for 30 Days, #60 TABS Nystatin (Nystatin) 5 Ml Susp 5 ML PO QID for 7 Days, #140 ML Tramadol HCl (Tramadol HCl) 50 Mg Tab 50 MG PO Q4H PRN for Pain, #20 TAB Continued Medications: Acetaminophen (Tylenol) 325 Mg Tab 650 MG PO Q6 PRN for Pain Albuterol Hfa (Ventolin Hfa) 200 Puffs/29874 Mcg Aers 2 PUFFS INH Q6 PRN for Wheezing Amiodarone HCl (Amiodarone HCl) 200 Mg Tab 400 MG PO DAILY, #30 TAKE 400 MG PO BID FOR 14 DAYS, LAST DOSE WILL BE 06/24/2017, THEN START 200 MG DAILY STARTING 06/25/2017. Aspirin (Aspirin Chewable) 81 Mg Chew 81 MG PO DAILY Atorvastatin (Lipitor) 80 Mg Tab 80 MG PO HS Coenzyme Q10 (Ubidecarenone) (Co Q10) 50 Mg Cap 2 CAP PO QAM Docusate Sodium (Colace) 100 Mg Cap 100 MG PO DAILY Ferrous Sulfate (Fe Tabs) 325 Mg Tab 325 MG PO QA, TAB Finasteride (Proscar) 5 Mg Tab 5 MG PO QAM Fluticasone Prop/Salmeterol (Advair Diskus 250/50 60 Dose) 1 Ea Aerp 1 PUFF INH Q12H, INHALER Fluticasone Propionate (Nasal) (Flonase Allergy Relief) 50 Mcg/Act Spr 2 SPRAYS DARREN DAILY PRN for Nasal Congestion Furosemide (Lasix) 40 Mg Tab 40 MG PO DAILY, TAB Gabapentin (Gabapentin) 100 Mg Cap 100 MG PO Q8 Home O2 Therapy (Oxygen) Gas 2 LITERS NA PRN, BTL Ipratropium-Albuterol (Duoneb) 3 Ml Nebu 1 TREATMENT NEB Q6 PRN for SOB/Wheezing Magnesium Oxide (Mag-Ox) 400 Mg Tab 400 MG PO QAM, TAB Metoprolol Succ (Toprol Xl) (Toprol-Xl) 25 Mg Tabcr 12.5 MG PO BID, #30 TAB Nitroglycerin (Nitrostat) 0.4 Mg/1 Tab Subl 0.4 MG SL UD PRN for Chest Pain Omeprazole (Prilosec) 40 Mg Cap 40 MG PO DAILY Potassium Ext Rel (Klor-Con) 20 Meq Tabcr 20 MEQ PO DAILY Prednisone (Prednisone) 5 Mg Tab 5 MG PO UD PRN for EMERGENCY KIT, TAB Saline ([place] Nasal [place]) 0.65 % Spr 2 SPRY DARREN UD PRN for nasal congestion or dryness Spironolactone (Spironolactone) 25 Mg Tab 25 MG PO DAILY, #30 Tamsulosin HCl (Tamsulosin HCl) 0.4 Mg Cap 1 CAP PO BID Tiotropium [place] (Spiriva Handihaler) 30 Puff/540 Mcg Aerp 1 CAP INH DAILY Admission Information HPI (per Admitting provider): This is a 77 year old male with a complex medical history, including CAD s/p stent in , severe COPD and chronic respiratory failure on 2L O2 continuously , severe ischemic cardiomyopathy with EF of ~ 20%, traumatic L lower leg amputation presents with worsening shortness of breath. States he was recently on [facility] in [place] for a L groin seroma, which was drained and debrided and he was there for almost a week. While there, his medications were adjusted, including the discontinuation of Plavix and the addition of Amiodarone. Patient states he was doing well but when he was on the drive back to the [facility], he became short of breath. He was seen in the ER at [facility] the same day he was discharged from [facility] (on June 10). He was given some neb treatments and steroids and was sent home. He states that this morning he became much more short of breath; requiring accessory muscles for respiratory as per ED doctor. Was given steroids, antibiotics and neb treatment and he already feels better. Denies fevers/chills; denies chest pain, denies nausea/vomiting/diarrhea; c/o weakness, R LE pain, which is chronic and dyspnea with exertion. Physical Exam (per Admitting): General Appearance: + mild distress (mild respiratory distress), + cachetic , + thin Head: normocephalic, atraumatic Eyes: normal inspection ENT: hearing grossly normal Respiratory/Chest: + respiratory distress, + decreased breath sounds, + wheezing (end expiratory wheezing diffusely) Abdomen/GI: normal bowel sounds, non tender, soft Extremities/Musculoskelatal: + pertinent finding (L AKA) Neurologic/Psych: no motor/sensory deficits, alert, normal mood/affect Skin: normal color Lymphatic: no adenopathy Hospital Course This is a 77 year old male with a complex medical history, including CAD s/p stent in , severe COPD and chronic respiratory failure on 2L O2 continuously , severe ischemic cardiomyopathy with EF of ~ 20%, traumatic L lower leg amputation presents with worsening shortness of breath. SOB /Hypoxia -multifactorial COPD exacerbation /Acute on Chronic Respiratory Failure acute CHF decompensation with severe systolic dysfunction /ischemic cardiomyopathy -symptoms continues to improve pulmonology following for COPD exacerbation , started on PO Prednisone D/w Pulmonology will need prolong taper on discharge severe emphysema at baseline on chronically on 2L of O2 continuously schedule to see Pulmonology at [facility] stable to be discharged home today Ischemic Cardiomyopathy Acute on Chronic Systolic CHF, with EF ~ 20% symptomatically improved monitor vol at baseline pt refused ICD placement in the past pt will be continued on Lasix and Aldactone Cardiology following Elevated Troponin in the setting of CAD denies any chest pain elevated troponin likely from ischemia from COPD as well as CHF exacerbation stent placed in 1996 Plavix recently stopped at [facility]; cont. Toprol XL 12.5mg BID, and high intensity statin aspirin on hold due to anemia/left groin hematoma both antiplatelets will be resumed on discharge pt has [facility] L groin hematoma/seroma s/p recent vascular procedure with excision of seroma in left groin appreciate in put form Vascular surgery team no active bleeding noted at the surgical site no further surgical intervention needed pt has follow up with vascular with [facility] in 2 weeks ANEMIA possible due to above S/P 1 unit pRBC Hbg remains stable ~ 10 DVT ppx scd and teds DNR DISPOSITION PT/OT mollykoffi appreciated refused to go to rehab wants to return home son lives close by pt is discharged home today Medicine follow up with Dr Hinton follows with Pulmonology at [facility] Scheduled to have follow up at [facility] in 2 weeks with vascular surgery Total time spent on discharge = 35 MINS This includes examination of the patient, discharge planning, medication reconciliation, and communication with other providers. Discharge Instructions Discharge Instructions Date of Service Jun 17, 2017. Admission Reason for Admission: Copd Exacerbation,Elevated Troponin Discharge Discharge Diagnosis / Problem: ACUTE ON CHRONIC HYPOXEMIC RESPIRATORY FAILURE / CHF SYSTOLIC DYSFUNCTION Discharge Goals Goal(s): Decrease discomfort, Improve disease control, Diagnostic testing, Therapeutic intervention Activity Recommendations Activity Limitations: as noted below ( TOLERATED ) . Instructions / Follow-Up Instructions / Follow-Up HOSPITAL FOLLOW UP : 06/21/2017 1:00 PM Andrew Hinton MD General Internal Medicine [facility] FOLLOW UP AT [facility] VASCULAR SURGERY PER SCHEDULE Call your Primary Care doctor if any of the following symptoms or problems start or get worse: * Shortness of breath or difficulty breathing * Wake up at night short of breath * Chest pain * Cough * Swelling of your hands, feet, or legs * More fatigued or tired with your normal activity * Palpitations - sudden fast heart beats WEIGHT * Weigh yourself every morning after using the bathroom. * Use the same scale. * Wear the same amount of clothing. * Write your weight down on a chart. * Call your Primary Care doctor if you gain more than 2-3 pounds in 1-2 days. MEDICATIONS * Use this discharge instruction sheet for medication instructions. * Take your medications at the time your doctor ordered. * Do not skip a dose of your medicines. * If you miss a dose of medicine, take it as soon as possible, but DO NOT DOUBLE A DOSE. * Read your medicine information when you get home. * Know all of the side effects of your medicine. If in doubt, ask your pharmacist * Call your Primary Care doctor's office if you have any side effects. * Be sure all of your doctors know what medicine and herbs you take (including cold, flu, and herbal medicine). Take the following with you to your follow-up doctor appointments: * Weight Chart * Medication List * List of questions Do not drink excessive alcohol, beer or wine. Current Hospital Diet Patient's current hospital diet: Regular Diet Discharge Diet Recommended Diet: AHA Diet (Heart Healthy), Low Sodium Diet (2gm Na) Pending Studies Studies pending at discharge: no Medical Emergencies . Who to Call and When: Call 911 or go to the Emergency Room if: * If at any time you feel your situation is an emergency * You have tightness or pain in your chest that does not go away with rest or Nitroglycerin * You are very short of breath even with rest . Non-Emergent Contact Non-Emergency issues call your: Primary Care Provider . . "Provider Documentation" section prepared by Vita Chapa. . VTE Core Measure Inpt VTE Proph given/why not?: Jesus Padilla, SCD's Additional Copies To Andrew Hinton MD
[2017-06-25] MEDS ORDERED: AMIODARONE 200 MG TAB PO SCH (09:00)
== END 2017-06-17 14:51 | disposition home health service (06) | DRG 291 ==
LOC: EDBD 09:13 → C.EDC 09:15 → C.2T 11:27 → ENRESERV 11:47 → C.MS2W 06-16 20:05
PROVIDERS: ADMIT Family Medicine; ATTEND Hospitalist
DX: I50.23 Acute on chronic systolic (congestive) heart failure (principal); J96.21 Acute and chronic respiratory failure with hypoxia; J96.22 Acute and chronic respiratory failure with hypercapnia; J44.1 Chronic obstructive pulmonary disease with (acute) exacerbation; D62 Acute posthemorrhagic anemia; E46 Unspecified protein-calorie malnutrition; I97.618 Postprocedural hemorrhage of a circulatory system organ or structure following other circulatory system procedure; I11.0 Hypertensive heart disease with heart failure; I25.5 Ischemic cardiomyopathy; I73.9 Peripheral vascular disease, unspecified; N40.0 Benign prostatic hyperplasia without lower urinary tract symptoms; I25.10 Atherosclerotic heart disease of native coronary artery without angina pectoris; E78.5 Hyperlipidemia, unspecified; Z79.52 Long term (current) use of systemic steroids; Z79.82 Long term (current) use of aspirin; Z79.899 Other long term (current) drug therapy; Z95.5 Presence of coronary angioplasty implant and graft; Z99.81 Dependence on supplemental oxygen; Z89.612 Acquired absence of left leg above knee; Z66 Do not resuscitate; R55 Syncope and collapse; F17.210 Nicotine dependence, cigarettes, uncomplicated; Z98.890 Other specified postprocedural states; Z82.49 Family history of ischemic heart disease and other diseases of the circulatory system